=== PATIENT | male | born 1975 | race Caucasian/White ===

== ENCOUNTER 2024-01-01 13:52 | Inpatient (IN) | payer OTHER ==
[~2024-01-01] VITALS: Ht 182.9 cm; Wt 116.0 kg
[~2024-01-01 13:52] MED LIST: ALBU108A5 IN; ALPR0.254 PO; AMOX500C2 PO; AZIT-185 PO; BUSP10TA90 PO; CHOL500033 PO; DOCU-94 PO; EMPA1TAB3 PO; HYDR-4798 PO; IBUP-1456 PO; PARO-181 PO; SEMA4INJ SC
--- NOTE | 2024-01-01 14:20 | ED.PDOC ---
History of Present Illness HPI Comments 48-year-old male presents to the ER with spouse and with prior history of COPD, COVID-became O2 dependent for home on 2L after COVID which may be associated to the chief complaint of shortness of breath. Patient has had a cough for the past 3 days, and spouse saturation level being 70% today. Patient was given amoxicillin and a Z-Veto. Patient ran out of his 2 L of O2 at home. PMHx HTN, dm. Denies chills, fever, N/V/D, wheezing, CP or other associated symptoms, modifiers, or recent injuries at this time. Time Seen by MD: 14:05 Primary Care Provider: jhon Reviewed Notes: Nurses Notes, Medications, Allergies Allergies: Coded Allergies: NO KNOWN ALLERGIES (Unverified , 04/03/15) Information Source: Patient, Spouse Mode of Arrival: Ambulatory Severity: Moderate Timing: Days Duration: Since onset, Days Prehospital treatment: None Past Medical History PAST MEDICAL HISTORY: COPD, DM, HTN Past Medical History (Other): Covid, 2 L of O2 at home Surgical History: Denies all surgeries Family History Family History: Reviewed,noncontributory to illness Social History Smoker: Non-Smoker Alcohol: Denies ETOH Use Drugs: Denies Drug Use Lives In: Home Constitutional: denies: chills, diaphoresis, fatigue, fever, malaise, sweats, weakness, others EENTM: denies: blurred vision, double vision, ear bleeding, ear discharge, ear drainage, ear pain, ear ringing, eye pain, eye redness, hearing loss, mouth pain, mouth swelling, nasal discharge, nose bleeding, nose congestion, nose pain, photophobia, tearing, throat pain, throat swelling, voice changes, others Respiratory: reports: SOB at rest, shortness of breath; denies: cough, hemoptysis, orthopnea, SOB with excertion, stridor, wheezing, others Cardiovascular: denies: chest pain, dizzy spells, diaphoresis, Dyspnea on exertion, edema, irregular heart beat, left arm pain, lightheadedness, palpitations, PND, syncope, others Gastrointestinal: denies: abdomen distended, abdominal pain, blood streaked bowels, constipated, diarrhea, dysphagia, difficulty swallowing, hematemesis, melena, nausea, poor appetite, poor fluid intake, rectal bleeding, rectal pain, vomiting, others Genitourinary: denies: burning, dysuria, flank pain, frequency, hematuria, incontinence, penile discharge, penile sore, pain, testicle pain, testicle swelling, urgency, others Neurological: denies: dizziness, fainting, headache, left sided numbness, left sided weakness, numbness, paresthesia, pre-existing deficit, right sided numbness, right sided weakness, seizure, speech problems, tingling, tremors, weakness, others Musculoskeletal: denies: back pain, gout, joint pain, joint swelling, muscle pain, muscle stiffness, neck pain, others Integumetry: denies: bruises, change in color, change in hair/nails, dryness, laceration, lesions, lumps, rash, wounds, others Allergic/Immunocompromised: denies: Difficulty Healing, Frequent Infections, Hives, Itching, others Hematologic/Lymphatic: denies: anemia, blood clots, easy bleeding, easy bruising, swollen glands, others Endocrine: denies: excessive hunger, excessive sweating, excessive thirst, excessive urination, flushing, intolerance to cold, intolerance to heat, unexplained weight gain, unexplained weight loss, others Psychiatric: denies: anxiety, bipolar disorder, depression, hopeless, panic disorder, schizophrenia, sleepless, suicidal, others All Other Systems: Reviewed and Negative Physical Exam Exam Comments Normal General Appearance: No Apparent Distress, Normal HEENT: Normal ENT Inspection, Pharynx Normal, TMs Normal Neck: Full Range of Motion, Non-Tender, Normal, Normal Inspection Respiratory: Chest Non-Tender, Lungs Clear, No Accessory Muscle Use, No Respiratory Distress, Normal Breath Sounds Cardiovascular: No Edema, No JVD, No Murmur, No Gallop, Normal Peripheral Pulses, Regular Rate/Rhythm Breast Exam: Deferred Gastrointestinal: No Organomegaly, Non Tender, No Pulsatile Mass, Normal Bowel Sounds, Soft Genitalia: Deferred Pelvic: Deferred Rectal: Deferred Extremities: No calf tenderness, Normal capillary refill, Normal inspection, Normal range of motion, Non-tender, No pedal edema Musculoskeletal : Apperance: Normal Neurologic: Alert, embedded linux developer II-XII nml as Tested, No Motor Deficits, Normal Affect, Normal Mood, No Sensory Deficits Cerebellar Function: Normal Reflexes: Normal Skin: Dry, Normal Color, Warm Lymphatic: No Adenopathy Was a procedure done? Was a procedure done?: No Differential Dx Considerations may include: chf, copd exacerbation, pneumonia, covid, influenza, PE X-Ray, Labs, Meds, VS Vital Signs Date Time Temp Pulse Resp B/P (MAP) Pulse Ox O2 Delivery O2 Flow Rate FiO2 01/01/24 14:45 97 Non-Rebreather 15 N/A 01/01/24 14:40 90 Non-Rebreather 15 N/A 01/01/24 14:38 98 13 111/62 (78) 96 01/01/24 14:29 97.7 20 118/83 (95) 79 Lab Test 01/01/24 15:38 01/01/24 14:36 01/01/24 14:34 Range/Units Troponin I High Sensitivity Pending < 3 L </=54 ng/L White Blood Count 18.6 H 4.4-10.8 10^3/uL Red Blood Count 4.74 4.5-5.90 10^6/uL Hemoglobin 15.4 13.5-17.5 g/dL Hematocrit 45.7 41.0-53.0 % Mean Corpuscular Volume 96.3 80.0-100.0 fL Mean Corpuscular Hemoglobin 32.6 H 28.0-32.0 pg Mean Corpuscular Hemoglobin Concent 33.8 32.0-36.0 g/dL Red Cell Distribution Width 13.6 11.8-14.3 % Platelet Count 200 140-450 10^3/uL Mean Platelet Volume 7.1 6.9-10.8 fL Neutrophils (%) (Auto) 91.7 H 37.0-80.0 % Lymphocytes (%) (Auto) 5.1 L 10.0-50.0 % Monocytes (%) (Auto) 2.9 0.0-12.0 % Eosinophils (%) (Auto) 0.0 0.0-7.0 % Basophils (%) (Auto) 0.3 0.0-2.0 % Neutrophils # (Auto) 17.1 H 1.6-8.6 10 ^3/uL Lymphocytes # (Auto) 0.9 0.4-5.4 10 ^3/uL Monocytes # (Auto) 0.5 0-1.3 10 ^3/uL Eosinophils # (Auto) 0 0-0.8 10 ^3/uL Basophils # (Auto) 0.1 0-0.2 10 ^3/uL Nucleated Red Blood Cells 0.0 % Sodium Level 138 136-145 mmol/L Potassium Level 4.2 3.5-5.1 mmol/L Chloride Level 104 98-107 mmol/L Carbon Dioxide Level 27 20-31 mmol/L Anion Gap 7 5-15 Blood Urea Nitrogen 19 9-23 mg/dL Creatinine 1.18 0.700-1.30 mg/dL Glomerular Filtration Rate Calc 77 >90 mL/min BUN/Creatinine Ratio 16.1 10.0-20.0 Serum Glucose 119 H 74-106 mg/dL Calcium Level 9.5 8.7-10.4 mg/dL Blood Gas Specimen Type Arterial Blood Gas Sample Site Right radial Blood Gas Patient Temperature 37.0 Arterial Blood Date Drawn [id number] Arterial Blood pH 7.266 L 7.350-7.450 Arterial Blood Partial Pressure CO2 52.9 H 35.0-48.0 mmHg Arterial Blood Partial Pressure O2 81.1 L 83.0-108.0 mmHg Arterial Blood HCO3 23.5 21.0-28.0 mmol/L Arterial Blood Oxygen Saturation 94.7 94.0-98.0 % Arterial Blood Base Excess -4.2 L -2.0-3.0 mmol/L Arterial Blood Oxyhemoglobin 93.1 L 94.0-98.0 % Arterial Blood Carboxyhemoglobin 1.1 0.5-1.5 % Arterial Blood Methemoglobin 0.6 0.0-1.5 % Bhaskar Test Yes Blood Gas Total Hemoglobin 16.20 13.5-17.5 g/dL Blood Gas Liter Flow 15.00 Blood Gas Modality Mask - nrb FiO2 % 100.0 Time of 1ST Reevaluation: 14:35 Reevaluation 1ST: Unchanged Time of 2ND Reevaluation: 16:03 Reevaluation 2ND: Improved Patient Education/Counseling: Diagnosis, Treatment, Prognosis Family Education/Counseling: Diagnosis, Treatment, Prognosis Additional Information External Notes-10/24/18 Ordered Test-EKG, lab, RT,XY Reviewed Results-cxr, cbc, trop, chem Independent Hx- Interpreted Results-cxr Discuss Tx/Results-medical personnel, consults Departure 1 Departure Time of Disposition: 16:04 Impression: Primary Impression: CHF (congestive heart failure) Qualified Codes: I50.23 - Acute on chronic systolic (congestive) heart failure Additional Impressions: Hypoxia Respiratory failure Qualified Codes: J96.21 - Acute and chronic respiratory failure with hypoxia; J96.22 - Acute and chronic respiratory failure with hypercapnia Disposition: ADMITTED INPATIENT Admit to: Tele Condition: Serious Discharged With: Spouse Critical Care Note Critical Care Time?: Yes (55 min-critical care time only) Critical care comment: due to the real possibility of patient's condition deteriorating, his care requires my highest attention and readiness to intervene. i assessed the patient , ordered the proper tests and treatments, reassessed him for response, formulated a plan, discussed it with medical personnel, and consultants,. total time include more than 50% face to face contact and does not include any procedures Stability Stability form required: No I personally scribed for FELIX HERNANDEZ MD ([email or web address]) on 01/01/24 at 14:20. Electronically submitted by Ramana Greenberg ([email or web address]). EFLIX HERNANDEZ MD Jan 01, 2024 14:20
--- NOTE | 2024-01-01 14:29 | DVH ---
XY CHEST PORTABLE, HISTORY: sob COMPARISON: None None TECHNICAL DATA: 1 view of the chest was obtained. FINDINGS: Lines and tubes: None Cardiomediastinal silhouette: enlarged Pulmonary vasculature: prominent Lung expansion: low Lung airspace: bilateral patchy airspace opacities Lung interstitium: increased Pleura: normal Pneumothorax: no Bones: Unremarkable Other: no IMPRESSION: Cardiomegaly with pulmonary vascular congestion and possible pulmonary edema.
[2024-01-01 14:45] VITALS: O2SAT 97
[2024-01-01 14:52] LABS: Basophils # (auto) 0.1 10 ^3/uL (0-0.2); Basophils % (auto) 0.3 % (0.0-2.0); Eosinophils # (auto) 0 10 ^3/uL (0-0.8); Hematocrit 45.7 % (41.0-53.0); Hemoglobin 15.4 g/dL (13.5-17.5); Lymphocytes # (auto) 0.9 10 ^3/uL (0.4-5.4); Lymphocytes % (auto) 5.1 % (10.0-50.0); Mean Corpuscular Hemoglobin 32.6 pg (28.0-32.0); Mean Corpuscular Hgb Conc. 33.8 g/dL (32.0-36.0); Mean Corpuscular Volume 96.3 fL (80.0-100.0); Monocytes # (auto) 0.5 10 ^3/uL (0-1.3); Monocytes % (auto) 2.9 % (0.0-12.0); Neutrophils # (auto) 17.1 10 ^3/uL (1.6-8.6); Neutrophils % (auto) 91.7 % (37.0-80.0); Platelet Count (auto) 200 10^3/uL (140-450); Red Blood Cells 4.74 10^6/uL (4.5-5.90); Red Cell Distribution Width 13.6 % (11.8-14.3); White Blood Cell 18.6 10^3/uL (4.4-10.8)
[2024-01-01 15:00] LABS: Chloride 104 mmol/L (98-107); Potassium 4.2 mmol/L (3.5-5.1); Sodium 138 mmol/L (136-145)
[2024-01-01 15:01] LABS: Anion Gap 7 (5-15); Calcium 9.5 mg/dL (8.7-10.4); Carbon Dioxide 27 mmol/L (20-31)
[2024-01-01 15:06] LABS: BUN/Creatinine Ratio 16.1 (10.0-20.0); Blood Urea Nitrogen 19 mg/dL (9-23); Glucose 119 mg/dL (74-106)
[2024-01-01 15:12] LABS: Base Excess -4.2 mmol/L (-2.0-3.0)
[2024-01-01] MEDS: FUROSEMIDE 40 MG/4 ML VIAL IV ONE ×2 (16:14→20:56)
[2024-01-01 17:49] LABS: COVID19 ANTIGEN SOFIA FIA NEGATIVE (NEGATIVE); Rapid Influenza A Negative (Negative); Rapid Influenza B Negative (Negative)
[2024-01-01 19:30] VITALS: O2SAT 91
[2024-01-01] MEDS ORDERED: ACETAMINOPHEN 325 MG TAB PO PRN (21:00)
[2024-01-01] MEDS ORDERED: DOCUSATE SOD 100 MG CAP PO PRN (21:00)
[2024-01-01] MEDS ORDERED: NITROGLYCERIN 0.4 MG SL TAB SL PRN (21:00)
[2024-01-01] MEDS ORDERED: MORPHINE SULFATE INJ 2 MG/ml SYRG IV PRN (21:00)
[2024-01-01] MEDS ORDERED: ONDANSETRON HCL 4 MG/2 ML VIAL IV PRN (21:00)
[2024-01-01 21:05] VITALS: BP 131/74; PULSE 104; O2SAT 95
--- NOTE | 2024-01-01 21:39 | DVHHPRES ---
History of Present Illness Resident Creating Document: SANG CHE RESIDENT History of Present Illness Mr. 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 His SPO2 70% as he ran out of his home oxygen supply which progressed to SOB at rest, shortness of breath. He denies chills, fever, nausea, vomiting, diarrhea, wheezing, chest pain, dizziness, prolonged immobilization, leg swelling, bleeding/thrombotic disorder or recent injuries. He was prescribed outpatient moses with amoxicillin and a Z-Veto without improvement. At presentation was mildly confused likely due to metabolic encephalopathy. His hypercapnic, hypoxic respiratory failure with pulmonary edema with possible infection needed telemetry level admission, IV diuresis, antibiotics and BIPAP showing respiratory improvement. Cardiovascular: CHF, hyperipidemia, pulmonary hypertension Pulmonary: COPD Psych: Anxiety Musculoskeletal: Chronic low back pain, Osteoarthritis Endocrine: Diabetes Past Surgical History: None Family History: None Family History Noncontributory Smoke: No ALCOHOL: none Drugs: None Lives: Roommate Domestic Violence: Neg Past Social History Patient admits to recent history of distant use of fentanyl. Denies any history of IV drug abuse. Even on recurrent asking patient denies any lifetime history of cigarette smoking/vaping. Review of Systems Constitutional: Yes: Malaise Eyes: No: Pain, Vision change, Conjunctivae inflammation, Eyelid inflammation, Other, Redness ENT: No: Ear pain, Ear discharge, Nose pain, Nose discharge, Nose congestion, Mouth pain, Mouth swelling, Throat pain, Throat swelling, Other Respiratory: Cough, Shortness of breath, SOB with excertion, Hemoptysis, Sputum , Other (Brown) Cardiovascular: No: Chest Pain, Palpitations, Orthopnea, Paroxysmal Noc. Dyspnea, Edema, Lt Headedness, Other Gastrointestinal: No: Nausea, Vomiting, Abdominal Pain, Diarrhea, Constipation, Melena, Hematochezia, Other Genitourinary: No Dysuria, No Frequency, No Incontinence, No Hematuria, No Retention, No Other Musculoskeletal: No: other, neck pain, shoulder pain, arm pain, back pain, hand pain, leg pain, foot pain Skin: No: Rash, Lesions, Jaundice, Bruising, Other Neurological: No: Weakness, Numbness, Incoordination, Change in speech, Confusion, Seizures, Other Allergies: Coded Allergies: NO KNOWN ALLERGIES (Unverified , 04/03/15) Medications Current Medications Medications Dose Ordered Sig/Joseph Route Start Time Stop Time Status Last Admin Dose Admin Ondansetron HCl 4 mg Q4HP PRN IV 01/01/24 21:00 Docusate Sodium 100 mg BIDPRN PRN PO 01/01/24 21:00 Acetaminophen 650 mg Q6HP PRN PO 01/01/24 21:00 Nitroglycerin 0.4 mg Q5MINP PRN SL 01/01/24 21:00 Morphine Sulfate 2 mg Q30M PRN IV 01/01/24 21:00 Exam Vital Signs Vital Signs Date Time Temp Pulse Resp B/P (MAP) Pulse Ox O2 Delivery O2 Flow Rate FiO2 01/01/24 21:00 97.8 90 12 131/74 (93) 96 97.8 01/01/24 19:30 Hi-Flow Heated NC+ 10 91 91 General Appearance: Alert, Oriented X3, Cooperative, moderate distress, Other (Patient on BiPAP) HEENT: Atraumatic, PERRLA, EOMI, Other (Dry mucous membrane) Respiratory: Other (Slow air movement, patient on BiPAP, bilateral basal crackles, left-sided crackles more prominent. Egophony on left lower side. ) Cardiovascular: Regular rate, Normal S1, Normal S2, No murmurs, Other (Regular sinus rhythm, mildly tachycardic in 100s.) Abdominal: Normal bowel sounds, Soft, No tenderness, No hepatospenomegaly, Other (Central obesity noted) Extremities: No clubbing, No cyanosis, No edema, Normal pulses, No tenderness/swelling, Other (No pitting edema noted.) Skin: No rashes Neuro: Strength at 5/5 X4 ext, Normal tone, Sensation intact, Cranial nerves 3- 12 NL, Other (Deferred gait and speech as patient is on BiPAP) Psych/Mental Status: Mental status NL, Mood NL, Other (Mildly anxious, uncomfortable on BiPAP understandably.) Labs/Xrays Labs Test 01/01/24 20:21 01/01/24 17:09 01/01/24 15:38 01/01/24 14:36 Range/Units POC Glucose 170 H 70-106 mg/dl Influenza Type A Antigen Negative Negative Influenza Type B Antigen Negative Negative SARS-CoV-2 Antigen (Rapid) Negative NEGATIVE Troponin I High Sensitivity < 3 L </=54 ng/L White Blood Count 18.6 H 4.4-10.8 10^3/uL Red Blood Count 4.74 4.5-5.90 10^6/uL Hemoglobin 15.4 13.5-17.5 g/dL Hematocrit 45.7 41.0-53.0 % Mean Corpuscular Volume 96.3 80.0-100.0 fL Mean Corpuscular Hemoglobin 32.6 H 28.0-32.0 pg Mean Corpuscular Hemoglobin Concent 33.8 32.0-36.0 g/dL Red Cell Distribution Width 13.6 11.8-14.3 % Platelet Count 200 140-450 10^3/uL Mean Platelet Volume 7.1 6.9-10.8 fL Neutrophils (%) (Auto) 91.7 H 37.0-80.0 % Lymphocytes (%) (Auto) 5.1 L 10.0-50.0 % Monocytes (%) (Auto) 2.9 0.0-12.0 % Eosinophils (%) (Auto) 0.0 0.0-7.0 % Basophils (%) (Auto) 0.3 0.0-2.0 % Neutrophils # (Auto) 17.1 H 1.6-8.6 10 ^3/uL Lymphocytes # (Auto) 0.9 0.4-5.4 10 ^3/uL Monocytes # (Auto) 0.5 0-1.3 10 ^3/uL Eosinophils # (Auto) 0 0-0.8 10 ^3/uL Basophils # (Auto) 0.1 0-0.2 10 ^3/uL Nucleated Red Blood Cells 0.0 % Sodium Level 138 136-145 mmol/L Potassium Level 4.2 3.5-5.1 mmol/L Chloride Level 104 98-107 mmol/L Carbon Dioxide Level 27 20-31 mmol/L Anion Gap 7 5-15 Blood Urea Nitrogen 19 9-23 mg/dL Creatinine 1.18 0.700-1.30 mg/dL Glomerular Filtration Rate Calc 77 >90 mL/min BUN/Creatinine Ratio 16.1 10.0-20.0 Serum Glucose 119 H 74-106 mg/dL Calcium Level 9.5 8.7-10.4 mg/dL Test 01/01/24 14:34 Range/Units Blood Gas Specimen Type Arterial Blood Gas Sample Site Right radial Blood Gas Patient Temperature 37.0 Arterial Blood Date Drawn [id number] Arterial Blood pH 7.266 L 7.350-7.450 Arterial Blood Partial Pressure CO2 52.9 H 35.0-48.0 mmHg Arterial Blood Partial Pressure O2 81.1 L 83.0-108.0 mmHg Arterial Blood HCO3 23.5 21.0-28.0 mmol/L Arterial Blood Oxygen Saturation 94.7 94.0-98.0 % Arterial Blood Base Excess -4.2 L -2.0-3.0 mmol/L Arterial Blood Oxyhemoglobin 93.1 L 94.0-98.0 % Arterial Blood Carboxyhemoglobin 1.1 0.5-1.5 % Arterial Blood Methemoglobin 0.6 0.0-1.5 % Bhaskar Test Yes Blood Gas Total Hemoglobin 16.20 13.5-17.5 g/dL Blood Gas Liter Flow 15.00 Blood Gas Modality Mask - nrb FiO2 % 100.0 [place] [address] Ph: [phone] DIAGNOSTIC IMAGING Diagnostic Imaging Report : [id number] Signed PATIENT: CHELLE WOOD ACCT: [id number] UNIT: [id number] : 1975 LOC: ER ROOM / BED: / AGE / SEX: 48 / M ADM STATUS: REG ER SERVICE 1400 ORDERING PHYSICIAN: FELIX HERNANDEZ MD PROCEDURE(s): CXRP - CHEST PORTABLE REASON: sob ORDER NUMBER(s): [id number], ACCESSION NUMBER(s): [id number] XY CHEST PORTABLE, HISTORY: sob COMPARISON: None None TECHNICAL DATA: 1 view of the chest was obtained. FINDINGS: Lines and tubes: None Cardiomediastinal silhouette: enlarged Pulmonary vasculature: prominent Lung expansion: low Lung airspace: bilateral patchy airspace opacities Lung interstitium: increased Pleura: normal Pneumothorax: no Bones: Unremarkable Other: no IMPRESSION: Cardiomegaly with pulmonary vascular congestion and possible pulmonary edema. ATED BY: JOSH ZHANG MD DICTATED DATE/TIME: 01/01/241426 SIGNED BY: JOSH ZHANG MD SIGNED DATE/TIME: 01/01/241426 CC: [address] [address] Ph: [phone] DIAGNOSTIC IMAGING Diagnostic Imaging Report : [id number] Signed PATIENT: CHELLE WOOD ACCT: [id number] UNIT: [id number] : 1975 LOC: TELE ROOM / BED: [address] [place] [address] AGE / SEX: 49 / M ADM STATUS: ADM IN SERVICE 1200 ORDERING PHYSICIAN: SANG CHE PROCEDURE(s): BLDVT - BiLat Lower DVT REASON: respiratory failure ORDER NUMBER(s): [id number], ACCESSION NUMBER(s): [id number] Bilateral lower extremity venous duplex Clinical History: respiratory failure Comparison: None Technique: Duplex Doppler evaluation of the deep venous systems of both lower extremities f rom the common femoral veins to the popliteal veins including color Doppler and spectral/pulsed waveform analysis was performed. Findings: RIGHT SIDE: The common femoral vein demonstrates appropriate compressibility and waveform variability. There is compressibility/patency of the great saphenous vein at the proximal thigh. The femoral vein demonstrates appropriate compressibility and waveform variability. The deep femoral vein demonstrates appropriate compressibility and waveform variability. The popliteal vein demonstrates appropriate compressibility and waveform variability. There is normal compressibility at the tibioperoneal trunk. LEFT SIDE: The common femoral vein demonstrates appropriate compressibility and waveform variability. There is compressibility/patency of the great saphenous vein at the proximal thigh. The femoral vein demonstrates appropriate compressibility and waveform variability. The deep femoral vein demonstrates appropriate compressibility and waveform variability. The popliteal vein demonstrates appropriate compressibility and waveform variability. There is normal compressibility at the tibioperoneal trunk. Impression: 1. No right or left femoropopliteal venous thrombosis. HS:Y ATED BY: MILY HENDRICKSON MD DICTATED DATE/TIME: 01/02/24414 SIGNED BY: MLIY HENDRICKSON MD SIGNED DATE/TIME: 01/02/24414 CC: [address] [place] - [address] Ph: [phone] DIAGNOSTIC IMAGING Diagnostic Imaging Report : [id number] Signed PATIENT: CHELLE WOOD ACCT: [id number] UNIT: [id number] : 1975 LOC: TELE ROOM / BED: 1016-ERT / A AGE / SEX: 48 / M ADM STATUS: ADM IN SERVICE 56 ORDERING PHYSICIAN: SANG CHE PROCEDURE(s): CTACH - CT ANGIO CHEST CONTRAST REASON: D dimer elevated. ORDER NUMBER(s): [id number], ACCESSION NUMBER(s): [id number] Procedure: CT CT ANGIO CHEST CONTRAST Reason for study/Clinical History: D dimer elevated. Comparison Study: Chest x-ray 12/01/2023 Exam Date: 01/01/2024 11:56 PM Radiation Dose Information: CT Dose: CTDI volume is 27.5 mGy. Dose-length product is 1060.39 mGy*cm Contrast: 100 cc of Omnipaque 350 TECHNIQUE: After the uneventful administration of intravenous contrast intravenously, CTA imaging was performed through the chest per PE protocol. Coronal, sagittal, and 3D MIP images were created at a separate workstation and reviewed. All CT scans at this medical facility are performed using dose modulation techniques as appropriate to a performed exam including the following: Automated exposure control was utilized; adjustment of the MA and/or KV according to patient size; and use of iterative reconstruction technique. FINDINGS: The main pulmonary artery is mildly prominent measuring 3.2 cm. No central pulmonary embolus. No evidence of segmental pulmonary embolism. Subsegmental branches are limited by contrast opacification. Marked alveolar airspace opacities in the left upper and left lower lobes with similar appearance in the right perihilar lung. There is supraclavicular and mediastinal adenopathy with largest lymph nodes measuring 1.6 cm in the anterior mediastinum, 1.7 cm in the AP window and 1.6 cm in the left hilum. No discrete pericardial or pleural effusion. The thoracic aorta appears normal in caliber and contour. Visualized portions of the upper abdomen demonstrate severe diffuse hepatic steatosis. No suspicious osseous lesion. IMPRESSION: 1. No evidence of pulmonary embolism. 2. Marked predominantly ground-glass airspace opacities in the left lung diffusely and right perihilar lung likely represents infectious process. 3. Supraclavicular, mediastinal, and left hilar adenopathy, likely reactive. 4. Diffuse severe hepatic steatosis. 5. Short-term follow-up is recommended. HS:Y ATED BY: MILY HENDRICKSON MD DICTATED DATE/TIME: 01/02/24425 SIGNED BY: MILY HENDRICKSON MD SIGNED DATE/TIME: 01/02/24425 CC: Assessment/Plan Assessment/Plan Assessment: Mr. Wood, a 48-year-old male with a history of COPD, hypertension, obesity, JAMES, diabetes, and chronic oxygen dependence (2L) [id number], presents to the ER with shortness of breath and a cough for three days, with an SPO2 of 70% after running out of home oxygen. Plan: #1 Acute on chronic hypoxic, combined hypercapnic respiratory failure: Noted non-anion gap respiratory acidosis with rising CO2 needing BiPAP, tolerating well. Repeat blood gas in the a.m.. Appreciate RT input. #2 COPD exacerbation, acute bronchitis: presented with patchy hemoptysis and Thick brown sputum production for last 4-5 days.Likely a case of COPD exacerbation with hypercapnia, CO2 retention complicated with hypoxia secondary to lack of chronic home oxygen. Continue IV antibiotics, IV steroid> changed to oral prednisone 40 mg daily x 1 of 5 days. Pulmonary toilet. #3 Possible sepsis due to community-acquired gram positive/ gram-ve pneumonia: Outpatient use of oral amoxicillin and Z-Veto yielded no improvement. Left lower lobe opacity, egophony, elevated WBC 18.6, reactive apical lymph node, heart rate more than 90, respiratory rate more than 20, worsening respiratory failure with negative lactate highlights sepsis. IV ceftriaxone + azithromycin to continue day 1 of 7days. Please follow sputum culture and blood culture. Has a history of prior incarceration and travel to TB endemic areas. Presumably likely unrelated but needs further outpatient evaluation. #4 Questionable CHF exacerbation: patient denies any known history of heart failure, PND, orthopnea, leg swelling, weight gain, elevated JVD absent. Statu s post IV Lasix diuresing well. Low probability of CHF exacerbation but please check TTE/echo with the emphasis on possible pulmonary hypertension and EF%. #5 Diabetes type 2, insulin dependent: Patient is on Basal bolus SSI, free style lancets along with Jardiance 25 mg tab daily. HbA1c pending. Target blood glucose 140-180 mg per dL Postprandial-hospital. NPO SSI to continue. When tolerated enteral cc diet> corresponding change to SSI regimen. #6 History of COPD: Follows Dr. Conde, on Symbicort, albuterol at home with chronic 2 L of nasal cannula oxygen. #7 Likely Metabolic Encephalopathy, improved: Likely multifactorial with acid- base disorder, infection, sepsis/SIRS and multisystem involvement. At presentation presented with mild confusion, improved with BIPAP, reviewed this AM AAOx4. #8 vitamin-D deficiency: Daily 5000 vitamin D3, continue. #9 Anxiety and panic disorder: 0.25 alprazolam as needed , paroxetine 40 mg tablet daily, buspirone 10 mg tab daily, hydroxyzine / Atarax 25 mg daily. #10 intermittent constipation: As needed docusate twice daily. #11 ? methadone: As per patient he is on methadone but prescription check reveals patient on [address] [place] for back pain along with ibuprofen 800 mg tab t.i.d., with muscle relaxant carisoprodol 359 mg tab TID. Not prescribed opioid as patient denies any intermediate pain. Medications need further clarification with family. #12: Dyslipidemia: Patient on fenofibrate 134 mg cap daily, check lipid panel. The patient is not sure why he is not on statin therapy. #13: Known JAMES, follows pulmonology: At home has CPAP/ BiPAP intermittent use. Counseled regarding regular use. #14: Ruled out PE/DVT: Although low probability , patient came with tachycardia, shortness of breath, comparatively soft blood pressure of 90/70s history of COVID, borderline elevated D-dimer 1.19. #15 Hepatic steatosis: Noted in imaging. likely underlying fatty liver disease, counseling to lose weight, lifestyle modification with risk of MEZA/MASH discussed. #16 Grade 2 obesity: BMI of 36.0, presumably patient is on 0.5 mg subcutaneous Ozempic weekly and lifestyle modification. Diet: Patient needing BiPAP support. overnight NPO to avoid aspiration pneumonia. PUD prophylaxis: protonix 40mg iv daily> change to oral when tolerated. DVT prophylaxis: Lovenox 40mg daily. Barriers to discharge: Medical diagnosis and management in progress. Patient lives with roommate. Independent for ADL. Needs 2 L NC round the clock with CPAP/BIPAP at bedtime. SW consulted for early discharge planning with previously qualified home 2 L NC oxygen [id number]/as needed ABG/olsen. PCP: Mirtha Joyce MD [employer]: Carloz Barreto MD Case discussed with Dr. Longo. Code Status: Full Code. Care discussion needed total 27 minutes bedside. Plan discussed with: Patient, Other (Primary team, RN.) My Orders Orders - SANG CHE RESIDENT Procedure Category Date Status Time Admit ADMIT 01/01/24 Transmitted 21:00 Code Status CODE 01/01/24 Transmitted 21:00 Oxygen Per Hour RT 01/01/24 Transmitted 21:00 Ondansetron Hcl PHA 01/01/24 In Process (Zofran) 21:00 Docusate Sodium PHA 01/01/24 In Process Capsule (Colace 21:00 Complete Blood Count LAB 01/02/24 Verified 04:00 Comprehensive LAB 01/02/24 Verified Metabolic Panel 04:00 Cardiac DIET 01/02/24 Transmitted Diet-2gna,Lofat,Lochol Breakfast Acetaminophen Tablet PHA 01/01/24 In Process (Tylenol Tablet) 21:00 Sequential [place] 01/01/24 In Process Compression Device Nitroglycerin PHA 01/01/24 In Process Sublingual (Ntrostat 21:00 Morphine Sulfate PHA 01/01/24 In Process Injection 21:00 Oxygen By Nasal RT 01/01/24 Transmitted Cannula 21:00 Stat Ekg For Chest [place] 01/01/24 In Process Pain 21:00 Notify Of Changes [place] 01/01/24 In Process From Base 21:00 Modeling Analyst For [place] 01/01/24 In Process 24 Hours 21:00 Emergency Dysrhythmia [place] 01/01/24 In Process Protocol 21:00 Rhythm Strips Once [place] 01/01/24 In Process Every Shift 21:00 Urinalysis LAB 01/01/24 Logged 21:07 Drug Screen LAB 01/01/24 Logged 21:07 Blood Alcohol LAB 01/01/24 Logged 21:07 Respiratory Culture LIZBETH 01/01/24 Logged W/ Gs 21:07 D-Dimer LAB 01/01/24 Logged 21:10 Lactic Acid W/ Reflex LAB 01/01/24 Logged Order 21:10 B-Type Natriuretic LAB 01/01/24 Logged Peptide 21:10 Daily Weight [place] 01/01/24 In Process 21:10 Intake And Output [place] 01/01/24 In Process 21:10 Lipid Panel LAB 01/02/24 Verified 04:00 Date of Service: Jan 01, 2024 Billing Provider: DES LONGO MD Common Visit Codes: 07343-[id number] INP/OBS CARE (HIGH) Secondary Visit Codes: [id number] CARE PLAN 30 MINUTES SANG CHE RESIDENT Jan 01, 2024 21:39 DES LONGO MD Jan 02, 2024 17:55
[2024-01-01 22:09] LABS: Base Excess 1.5 mmol/L (-2.0-3.0)
[2024-01-01 22:42] VITALS: BP 131/74; PULSE 104; RESP 21; O2SAT 95
[2024-01-01] MEDS: cefTRIAXone 1GM/50ML D5W 50 ML IV ONE (23:09)
[2024-01-01] MEDS: AZITHROMYCIN 500MG/ 250ML 250 ML IV ONE (23:21)
[2024-01-01] MEDS: IOHEXOL 350 MG/ML 100ML IJ ONE (23:57)
[2024-01-02] VITALS (17 sets, daily range): BP systolic 116–140; BP diastolic 59–89; PULSE 84–109; RESP 13–22; O2SAT 88–96
[2024-01-02] MEDS: AZITHROMYCIN 500MG/ 250ML 250 ML IV SCH (00:15)
[2024-01-02] MEDS: PANTOPRAZOLE 40 MG/10 ML VIAL INJ IV ONE (03:45)
[2024-01-02] MEDS: ENOXAPARIN SOD 40 MG/0.4 ML SYRINGE SC SCH (03:55)
--- NOTE | 2024-01-02 04:15 | DVH ---
Bilateral lower extremity venous duplex Clinical History: respiratory failure Comparison: None Technique: Duplex Doppler evaluation of the deep venous systems of both lower extremities from the common femora l veins to the popliteal veins including color Doppler and spectral/pulsed waveform analysis was perf ormed. Findings: RIGHT SIDE: The common femoral vein demonstrates appropriate compressibility and waveform variability. There is compressibility/patency of the great saphenous vein at the proximal thigh. The femoral vein demonstrates appropriate compressibility and waveform variability. The deep femoral vein demonstrates appropriate compressibility and waveform variability. The popliteal vein demonstrates appropriate compressibility and waveform variability. There is normal compressibility at the tibioperoneal trunk. LEFT SIDE: The common femoral vein demonstrates appropriate compressibility and waveform variability. There is compressibility/patency of the great saphenous vein at the proximal thigh. The femoral vein demonstrates appropriate compressibility and waveform variability. The deep femoral vein demonstrates appropriate compressibility and waveform variability. The popliteal vein demonstrates appropriate compressibility and waveform variability. There is normal compressibility at the tibioperoneal trunk. Impression: 1. No right or left femoropopliteal venous thrombosis. HS:Y
--- NOTE | 2024-01-02 04:27 | DVH ---
Procedure: CT CT ANGIO CHEST CONTRAST Reason for study/Clinical History: D dimer elevated. Comparison Study: Chest x-ray 12/01/2023 Exam Date: 01/01/2024 11:56 PM Radiation Dose Information: CT Dose: CTDI volume is 27.5 mGy. Dose-length product is 1060.39 mGy*cm Contrast: 100 cc of Omnipaque 350 TECHNIQUE: After the uneventful administration of intravenous contrast intravenously, CTA imaging was performed through the chest per PE protocol. Coronal, sagittal, and 3D MIP images were created at a separate workstation and reviewed. All CT scans at this medical facility are performed using dose mo dulation techniques as appropriate to a performed exam including the following: Automated exposure co ntrol was utilized; adjustment of the MA and/or KV according to patient size; and use of iterative re construction technique. FINDINGS: The main pulmonary artery is mildly prominent measuring 3.2 cm. No central pulmonary embolus. No evid ence of segmental pulmonary embolism. Subsegmental branches are limited by contrast opacification. Marked alveolar airspace opacities in the left upper and left lower lobes with similar appearance in the right perihilar lung. There is supraclavicular and mediastinal adenopathy with largest lymph node s measuring 1.6 cm in the anterior mediastinum, 1.7 cm in the AP window and 1.6 cm in the left hilum. No discrete pericardial or pleural effusion. The thoracic aorta appears normal in caliber and contou r. Visualized portions of the upper abdomen demonstrate severe diffuse hepatic steatosis. No suspicious osseous lesion. IMPRESSION: 1. No evidence of pulmonary embolism. 2. Marked predominantly ground-glass airspace opacities in the left lung diffusely and right perihila r lung likely represents infectious process. 3. Supraclavicular, mediastinal, and left hilar adenopathy, likely reactive. 4. Diffuse severe hepatic steatosis. 5. Short-term follow-up is recommended. HS:Y
[2024-01-02] MEDS: methylPREDNISolone SOD SUCC 40 MG/ML VL IV ONE (04:30)
[2024-01-02] MEDS ORDERED: DEXTROSE (50%) 50ML SYRG IV PRN (05:00)
[2024-01-02] MEDS ORDERED: ALPRAZolam 0.25 MG TAB PO PRN (05:00)
[2024-01-02] MEDS ORDERED: FENO134C19 PO (05:08)
[2024-01-02] MEDS ORDERED: CARI-579 PO (05:08)
[2024-01-02] MEDS ORDERED: SEMA2INJ3 SC (05:08)
[2024-01-02] MEDS ORDERED: SEMAGLUTIDE 4 MG/3 ML SC SCH (05:15)
[2024-01-02] MEDS: ACCU-CHEK COMFORT CURVE STRIP VI SCH (05:24)
[2024-01-02] MEDS: InsuLIN REG 1unit/0.01ml Soln (100units/ml) SC SCH (05:25)
[2024-01-02] MEDS: CARISOPRODOL 350 MG TAB PO SCH (05:41)
[2024-01-02 06:09] LABS: Basophils # (auto) 0 10 ^3/uL (0-0.2); Basophils % (auto) 0.1 % (0.0-2.0); Eosinophils # (auto) 0 10 ^3/uL (0-0.8); Lymphocytes % (auto) 6.3 % (10.0-50.0); Mean Corpuscular Hemoglobin 32.8 pg (28.0-32.0); Mean Corpuscular Hgb Conc. 34.1 g/dL (32.0-36.0); Mean Corpuscular Volume 96.2 fL (80.0-100.0); Monocytes # (auto) 0.7 10 ^3/uL (0-1.3); Monocytes % (auto) 4.6 % (0.0-12.0); Neutrophils # (auto) 14.4 10 ^3/uL (1.6-8.6); Platelet Count (auto) 199 10^3/uL (140-450); Red Blood Cells 4.89 10^6/uL (4.5-5.90); Red Cell Distribution Width 13.8 % (11.8-14.3); White Blood Cell 16.2 10^3/uL (4.4-10.8)
[2024-01-02 06:25] LABS: Alanine Aminotransferase 41 U/L (7-40); Albumin 4.1 g/dL (3.2-4.8); Alkaline Phosphatase 144 U/L (46-116); Anion Gap 10 (5-15); Aspartate Aminotransferase 96 U/L (13-40); BUN/Creatinine Ratio 15.3 (10.0-20.0); Bilirubin, Total 0.7 mg/dL (0.2-1.0); Blood Urea Nitrogen 18 mg/dL (9-23); Calcium 9.7 mg/dL (8.7-10.4); Carbon Dioxide 29 mmol/L (20-31); Chloride 102 mmol/L (98-107); Glucose 103 mg/dL (74-106); Potassium 3.4 mmol/L (3.5-5.1); Sodium 141 mmol/L (136-145); Total Protein 7.6 g/dL (5.7-8.2)
[2024-01-02] MEDS: LEVALBUTEROL HCL 1.25 MG/3 ML NEB NEB SCH (06:51)
[2024-01-02] MEDS: IPRATROPIUM BROM 0.5 MG/2.5ML INH SOL NEB SCH (06:52)
[2024-01-02 08:25] LABS: Triglycerides 156 mg/dL (< 150)
[2024-01-02 08:26] LABS: LDL Cholesterol 58 mg/dL (< 100)
[2024-01-02 08:27] LABS: Cholesterol 106 mg/dL (< 200); HDL Cholesterol 23 mg/dL (40-59)
[2024-01-02] MEDS ORDERED: VANCOMYCIN PER PHARMACY 0 MG IV SCH (09:15)
[2024-01-02] MEDS: PARoxetine 20 MG TAB PO SCH (09:35)
[2024-01-02] MEDS: CHOLECALCIFEROL (VITD3) 1,000UNIT=25mCg TAB PO SCH (09:36)
[2024-01-02] MEDS: PANTOPRAZOLE 40 MG/10 ML VIAL INJ IV SCH (09:36)
[2024-01-02] MEDS: POTASSIUM CHL 20 Meq TABLET PO ONE ×2 (09:36→13:20)
[2024-01-02] MEDS ORDERED: predniSONE 20 MG TAB PO SCH (10:00)
[2024-01-02 10:02] LABS: Base Excess 1.8 mmol/L (-2.0-3.0)
[2024-01-02] MEDS: HYDROCORTISONE SOD SUCC 100 MG/2ML INJ VIAL IV SCH (11:12)
[2024-01-02] MEDS ORDERED: METHADONE HCL 10 MG TAB PO ONE (11:15)
[2024-01-02] MEDS: VANCOMYCIN 1GM/250ML KIT 200 ML IV SCH (11:41)
[2024-01-02] MEDS ORDERED: METHADONE HCL 10 MG TAB PO SCH (12:15)
--- NOTE | 2024-01-02 12:46 | DVHSR ---
APPROVED REPORT EXAM: Two-dimensional and M-mode echocardiogram with Doppler and color Doppler. Blood Pressure: 127/59 mmHg INDICATION SOB RISK FACTORS Obesity: Height: 6'0", Weight: 265 DIMENSIONS LVDd4.5 (3.8-5.7cm)LA (2D)3.2 (1.9-4.0cm)Aortic Root3.9 (2.0-3.7cm) LVDs3.0 (2.5-4.0cm)LA (MM) (1.9-4.0cm)Aortic Cusp Exc1.8 (1.5-2.0cm) EF (%) 60.0 (55-70%)Rt. Atrium (1.9-4.0cm)Asc. Aorta cm IVSd1.1 (0.7-1.1cm)RV (D) (1.8-2.4cm) PWd1.0 (0.7-1.1cm) Mitral Valve MitralMitral Stenosis E wave1.02m/sMV Mean GR.mmHg A wave0.85m/sMV Peak GR.mmHg E/A ratio1.22D MVAcm2 DECEL [id number] 1/2 Timems Aortic Valve Aortic ValveAortic Stenosis V11.02m/Bing Mean GR.3mmHg V21.30m/Bing Peak GR.7mmHg LVOT Diameter2.0 (1.8-2.4cm)Doppler AVA2.46cm2 Pulmonic Valve V21.08m/s Tricuspid Valve TR Velocity2.73m/s [id number] Other Information Quality : LimitedRhythm : Technically limited study due to body habitus, patient sitting up. Conclusion Normal left ventricular size and dimension. Normal left ventricular systolic function estimated ejec tion fraction 55%. There is a grade 1 diastolic dysfunction. Normal right ventricular size and dimension. Normal right ventricular systolic function. Mild-to-mo derately increased right ventricular systolic [id number] mm of mercury Normal biatrial size and dimension. Normal aortic valve structure and function. Normal mitral valve structure and function. Normal tricuspid valve structure and function. The pulmonary valve is grossly normal. No pericardial effusion.
[2024-01-02 13:18] LABS: Base Excess 1.3 mmol/L (-2.0-3.0)
[2024-01-02] MEDS: METHADONE HCL 10 MG TAB PO ONE (13:21)
[2024-01-02] MEDS: METHADONE HCL 10 MG TAB PO SCH (13:21)
[2024-01-02 14:32] LABS: Base Excess 2.2 mmol/L (-2.0-3.0)
[2024-01-02] MEDS: CEFEPIME 1GM/ 50ML 50 ML IV SCH (14:37)
--- NOTE | 2024-01-02 14:49 | DVHPNRES ---
Progress Note Date Seen: Jan 02, 2024 Resident Creating Document: MARTY BLAIR RESIDENT Medical Necessity Reason Pt with a Central, PICC or Fol: No Subjective Review of Systems Patient is a 49-year-old male with a past medical history of type 2 diabetes mellitus, lung fibrosis following COVID pneumonia in 2020 currently on home oxygen 3 liters/minute, fatty liver, obstructive sleep apnea on BiPAP, chronic back pain on methadone daily was brought to the ED with a worsening shortness of breath and altered mental status for 1 day prior to admission. Patient's partner reported that for 4-5 days prior to admission patient has started to have cough and night prior to admission it worsen when he had cough with expectoration with bright red blood, worsening shortness of breath. In the morning patient went to the methadone clinic to get his daily to and oncoming whom he was altered and sleepy and her difficulty breathing following which he was brought to the ED for further evaluation. On arrival to the ED patient's SpO2 was 79% following which he was put on a non-rebreather mask and eventually as he was desaturating he was put on facial BiPAP mask. Patient's blood pressure was stable on admission and remained stable throughout. Patient's initial ABGs showed respiratory acidosis with pCO2 52.9. CBC showed elevated WBC count with left shift. BMP showed normal electrolytes and GFR and creatinine within normal limits. Elevated AST ALT and ALP, elevated triglycerides. Showed normal LVEF at 55% with grade 1 diastolic dysfunction, no valvular abnormalities seen. Chest x-ray showed diffuse opacities more on the left than the right and pulmonary vascular congestion CT angiography showed no evidence of pulmonary embolism, marked predominantly ground-glass opacities in the left lung, supraclavicular, mediastinal and left hilar adenopathy. Past medical history: As per HPI Past surgical history: None Social history: Lives with girlfriend and denies smoking, alcohol, drug use. Home medications: Ozempic, fenofibrate, methadone 93mg daily, carisoprodol Review of systems Patient seen and examined at the bedside. Patient is alert and oriented x4, lethargic and lying in bed comfortably. Patient at the time of examination is on BiPAP with settings IPAP of 12 and EPAP of 5 and FiO2 75%. Patient's repeat ABG showed increased pCO2 and decreased pH, IPAP increased to 17 and EPAP 5 with a FiO2 70%. Lactic acid within normal limits at 1.6, potassium level mildly decreased at 3.4. Patient reported generalized body ache, restless legs. Objective vital signs Vital Sign Date Time Temp Pulse Resp B/P (MAP) Pulse Ox O2 Delivery O2 Flow Rate FiO2 01/02/24 14:25 88 136/76 90 Facial BiPAP Mask 70 01/02/24 11:29 20 01/02/24 08:00 99.5 99.5 01/02/24 06:51 12.0 medications Current Medications Medications Dose Ordered Sig/Joseph Route Start Time Stop Time Status Last Admin Dose Admin Ondansetron HCl 4 mg Q4HP PRN IV 01/01/24 21:00 Acetaminophen 650 mg Q6HP PRN PO 01/01/24 21:00 Nitroglycerin 0.4 mg Q5MINP PRN SL 01/01/24 21:00 Morphine Sulfate 2 mg Q30M PRN IV 01/01/24 21:00 Azithromycin 250 ml @ 125 mls/hr DAILY@2200 IV 01/02/24 22:00 Enoxaparin Sodium 40 mg DAILY SC 01/02/24 03:45 01/02/24 09:37 40 MG Pantoprazole Sodium 40 mg DAILY IV 01/02/24 10:00 01/02/24 09:36 40 MG Levalbuterol HCl 0.625 mg Q6HR NEB 01/02/24 06:00 01/02/24 11:16 0.625 MG Ipratropium [facility] 0.5 mg Q6HWA NEB 01/02/24 06:00 01/02/24 11:16 0.5 MG Cholecalciferol 4,000 unit DAILY PO 01/02/24 10:00 01/02/24 09:36 4,000 UNIT Alprazolam 0.25 mg Q8HP PRN PO 01/02/24 05:00 Paroxetine HCl 40 mg DAILY PO 01/02/24 10:00 01/02/24 09:35 40 MG Docusate Sodium 100 mg BIDPRN PRN PO 01/02/24 05:00 Diagnostic Test (Pha) 1 strip Q6HR 01/02/24 06:00 01/02/24 12:09 1 STRIP Insulin Human Regular Q6HR SC 01/02/24 06:00 Dextrose 50 ml UD PRN IV 01/02/24 05:00 Carisoprodol 350 mg TID PO 01/02/24 06:00 Patient Own Medication 1 cap DAILY PO 01/02/24 10:00 Hydrocortisone Sodium Succinate 100 mg Q12HR IV 01/02/24 10:00 01/02/24 11:12 100 MG Cefepime HCl 50 ml @ 12.5 mls/hr Q8HR IV 01/02/24 14:00 01/02/24 14:37 12.5 MLS/HR Vancomycin HCl 0 ml @ 0 mls/hr UD IV 01/02/24 09:15 Methadone HCl 80 mg DAILY PO 01/03/24 10:00 Cancel Methadone HCl 80 mg DAILY PO 01/02/24 12:15 01/02/24 13:21 80 MG Methadone HCl 80 mg DAILY PO 01/02/24 12:15 UNV Examination Physical Examination Gen - no pallor, no icterus, no cyanosis, no clubbing, no LAD, no edema . Skin - Patients skin is warm and dry. HEENT - normocephalic, atraumatic, dry mucous membranes. Neck - full ROM, no LAD, no JVD Pulmonary - decreased breath sounds bilaterally with bilateral fine inspiratory crackles more on the left side. no wheezing. cardiovascular - normal S1,S2 heard. no murmurs heard. peripheral pulses normal radial 2+, pedal 2+. capillary refill normal <2 secs. GI - soft abdomen without tenderness to palpation . no hepatospleenomegaly. Bowel sounds +. Neurological - Patient is A/O X 3. Bilateral upper extremity strength 5/5, bilateral lower extremity strength 4/5, no facial droop, normal speech, no tremor, no sensory deficiets. laboratory and microbiology Laboratory Tests 01/02/24 04:41 Test 01/02/24 04:41 Range/Units Serum Glucose 103 74-106 mg/dL Problem List/Assessment/Plan Problem List/Assessment/Plan Assessment and plan # Acute hypoxic respiratory failure likely due to pneumonia ?gram+/- ?atypical b acterial infection - currently on BiPAP with IPAP 17 and EPAP 5, FiO2 70% - levalbuterol and ipratropium nebulizer q.6 hours # sepsis likely due to pneumonia # respiratory acidosis with metabolic alkalosis # community-acquired pneumonia likely due to ?Gram +/- ? Atypical bacterial infection # history of COVID in 2020 , lung fibrosis worse on the left - chest x-ray shows bilateral opacities - chest CT shows marked predominantly ground-glass airspace opacities in the left lung diffusely and right perihilar lung area. Supraclavicular, mediastinal, left hilar adenopathy likely reactive - WBC count elevated with left shift - COVID and influenza type a and B negative - QuantiFERON TB gold test pending - patient complained of hemoptysis - initial ABG 01/01/2024 at 1434hrs showed pH 7.266, pCO2 52.9, bicarb 23.5 - repeat ABG showed increasing pCO2 - patient initially on non-rebreather mask then was put on BiPap - patient on vancomycin as per pharmacy, cefepime 1 g q.8 hour , azithromycin 500 g daily IV # pulmonary embolism ruled out - Wells score 2.5 - D-dimer elevated - CT angio chest revealed no evidence of pulmonary embolism - extremity venous study showed no evidence of femoropopliteal vein thrombosis # obstructive sleep apnea with BiPAP at night at home # echocardiogram shows left ventricular ejection fraction 55%, grade 1 diastolic dysfunction with mild to moderately increased right ventricular pressure # transaminitis with the elevated ALP # H/o episodes of rectal bleed - CT shows diffuse severe hepatic steatosis - GGT pending - patient does not complain of nausea,vomiting, diarrhoea,hematochezia,abdominal pain. # uncontrolled type 2 diabetes mellitus - HbA1c 7.7% - patient on mild insulin sliding scale - goal blood glucose 140-180 mg/dl # chronic back pain - At home the patient was on methadone 93 mg daily - Patient continued on methadone 80 mg daily # hypertriglyceridemia - fenofibrate daily Goals of care discussed with the patient and his girlfriend for over 35 minutes. Full code Plan discussed with Dr. Tang Plan discussed with: Patient, Other (girlfriend) My Orders My Orders Orders - MARTY BLAIR RESIDENT Procedure Category Date Status Time Drug Screen LAB 01/02/24 Logged 08:47 Abg W/ Co-Ox RT 01/02/24 Logged 09:31 Date of Service: Jan 02, 2024 Billing Provider: MAYELIN ACHARYA MD Common Visit Codes: [id number] INP/OBS CARE(HIGH) MARTY BLAIR RESIDENT Jan 02, 2024 14:49 MAYELIN ACHARYA MD Jan 09, 2024 00:21
[2024-01-02 15:28] LABS: Urine Bacteria None Seen /hpf (None Seen)
[2024-01-02 16:04] LABS: Urine Blood 1+ /uL (Negative); Urine Clarity Clear (Clear); Urine Color Yellow (Yellow); Urine Protein, UAD 1+ (Negative); Urine Specific Gravity 1.038 (1.001-1.035); Urine Urobilinogen Normal (Negative); Urine WBC 4 /hpf (0 - 3)
[2024-01-02 16:08] LABS: Amphetamine Screen, Urine Neg (NEGATIVE); Barbiturate Scree,Urine Neg (NEGATIVE); Benzodiazephine Screen, Urine Pos (NEGATIVE); Cocaine Screen, Urine Neg (NEGATIVE); Opiate Scree,Urine Neg (NEGATIVE)
[2024-01-02 16:09] LABS: Cannabinoid Screen, Urine Neg (NEGATIVE); Phencyclidine Screen, Urine Neg (NEGATIVE)
[2024-01-02 17:33] LABS: Base Excess 2.7 mmol/L (-2.0-3.0)
[2024-01-02 17:37] LABS: Anion Gap 7 (5-15); Calcium 9.3 mg/dL (8.7-10.4); Carbon Dioxide 29 mmol/L (20-31); Chloride 104 mmol/L (98-107); Potassium 4.3 mmol/L (3.5-5.1); Sodium 140 mmol/L (136-145)
[2024-01-02 17:42] LABS: Glucose 165 mg/dL (74-106)
[2024-01-02 17:43] LABS: BUN/Creatinine Ratio 17.1 (10.0-20.0); Blood Urea Nitrogen 19 mg/dL (9-23)
--- NOTE | 2024-01-02 19:43 | DVHINCON2 ---
Date of service: Jan 02, 2024 Referring Physician George Mott MD Reason for Consultation Acute hypoxic respiratory failure, acute on chronic hypercarbic respiratory failure, sepsis due to pneumonia, JAMES, possible pulmonary HTN. History of Present Illness A 49-year-old man with PMHx that includes COPD on 2 L home O2, hypertension, JAMES with CPAP noncompliance, diabetes, and COVID-19 in approximately 2021 who presented to ED on 01/01/24 with shortness of breath and a cough x3 days. His SPO2 was 70% as he ran out of his home oxygen supply, which progressed to shortness of breath at rest. He was prescribed amoxicillin and Z-Veto as outpatient without improvement. At presentation he was mildly confused, likely due to metabolic encephalopathy. Pt was noted to be in hypercapnic, hypoxic respiratory failure with pulmonary edema with possible infection, needing IV diuresis, antibiotics and BIPAP. Patient was admitted for further care and pulmonary consultation is requested for evaluation and management due to these findings. Review of Systems: 14-point review of systems negative unless otherwise noted above. Past Medical History: COPD chronic oxygen-dependent (2L), hx of COVID-19, CHF, diabetes, hyperlipidemia, pulmonary hypertension, anxiety, osteoarthritis, obesity. Past Surgical History: None Medications: Reviewed. Allergies: No known drug allergies. Family History: No family history of premature CAD. No family history of lung disorders. Social History: Nonsmoker. No alcohol or illicit drug use. Allergies: Coded Allergies: NO KNOWN ALLERGIES (Unverified , 04/03/15) Home Meds Reported Medications Hydrocodone-Acetaminophen (Hydrocodone Bitartrate/AC 10-325 mg) 1 Tab Tab, 1 TAB PO Q6-8HR for 23 Days, #90 01/03/24 Azithromycin (ZITHROMAX TABLET) 250 Mg Tb, TAB PO UD for 5 Days, #6 TAKE 2 TABLETS BY MOUTH ON DAY 1, THEN TAKE 1 TABLET BY MOUTH DAILY ON DAYS 2-5. 01/03/24 Amoxicillin Trihydrate (Amoxicillin) 500 Mg Cap, 1 CAP PO Q8HR for 10 Days, #30 01/03/24 Buspirone Hcl (Buspirone Hcl) 10 Mg Tab, 1 TAB PO BID for 30 Days, #60 01/03/24 Albuterol Sulfate (Albuterol Sulfate Hfa) 108 Mcg/Act Aer, 2 PUFF IN Q6HR for 25 Days, #18 01/03/24 Docusate Sodium (Colace) 100 Mg Cap, 1 CAP PO BID for 30 Days, #60 01/03/24 Alprazolam (Alprazolam) 0.25 Mg Tab, 0.5 TAB PO DAILY PRN for ANXIETY for 30 Days, #15 01/03/24 Ibuprofen (Ibuprofen) 800 Mg Tab, 1 TAB PO TID for 30 Days, #90 01/03/24 Empagliflozin (Jardiance) 25 Mg Tab, 1 TAB PO QAM for 30 Days, #30 01/03/24 Paroxetine HCl (Paroxetine Hydrochloride) 30 Mg Tab, 40 MG PO DAILY for 30 Days, #30 01/03/24 Cholecalciferol (Vitamin D-3) 5,000 Unit Cap, 1 CAP PO DAILY for 30 Days, #30 01/03/24 Semaglutide (Ozempic) 4 Mg/3 Ml Inj, 1 MG SC QWEEKLY for 28 Days, #3 01/03/24 Carisoprodol (Carisoprodol) 350 Mg Tab, 1 TAB PO TID 01/02/24 Fenofibrate (Fenofibrate Micronized) 134 Mg Cap, 1 CAP PO DAILY 01/02/24 Discontinued Reported Medications Semaglutide (Ozempic) 2 Mg/3 Ml Inj, 0.5 MG SC QWEEKLY 01/02/24 Current Medications Current Medications Medications (Trade) Dose Ordered Sig/Joseph Route PRN Reason Start Time Stop Time Status Last Admin Ondansetron HCl (Zofran) 4 mg Q4HP PRN IV NAUSEA / VOMITING 01/01/24 21:00 Docusate Sodium (Colace Capsule) 100 mg BIDPRN PRN PO FOR CONSTIPATION 01/01/24 21:00 01/02/24 05:05 DC Acetaminophen (Tylenol Tablet) 650 mg Q6HP PRN PO PAIN SCALE 1-3 OR TEMP>100.4 01/01/24 21:00 Nitroglycerin (Ntrostat Sublingual) 0.4 mg Q5MINP PRN SL FOR CHEST PAIN 01/01/24 21:00 Morphine Sulfate 2 mg Q30M PRN IV FOR CHEST PAIN 01/01/24 21:00 Ceftriaxone Sodium 50 ml @ 100 mls/hr DAILY@2100 IV 01/02/24 21:00 01/02/24 09:19 DC Azithromycin 250 ml @ 125 mls/hr DAILY@2200 IV 01/02/24 22:00 Enoxaparin Sodium (Lovenox) 40 mg DAILY SC 01/02/24 03:45 01/02/24 09:37 Pantoprazole Sodium (Protonix) 40 mg DAILY IV 01/02/24 10:00 01/02/24 09:36 Levalbuterol HCl (Xopenex Medneb) 0.625 mg Q6HR NEB 01/02/24 06:00 01/02/24 18:08 Ipratropium [place] (Atrovent Medneb) 0.5 mg Q6HWA NEB 01/02/24 06:00 01/02/24 18:08 Prednisone 40 mg DAILY PO 01/02/24 10:00 01/02/24 09:19 DC Cholecalciferol (Vitamin D3 Tablet) 4,000 unit DAILY PO 01/02/24 10:00 01/02/24 09:36 Alprazolam (Xanax Tablet) 0.25 mg Q8HP PRN PO ANXIETY 01/02/24 05:00 Paroxetine HCl (Paxil Tablet) 40 mg DAILY PO 01/02/24 10:00 01/02/24 09:35 Docusate Sodium (Colace Capsule) 100 mg BIDPRN PRN PO FOR CONSTIPATION 01/02/24 05:00 Diagnostic Test (Pha) (Accu-Chek Comfort Curve T) 1 strip Q6HR 01/02/24 06:00 01/02/24 18:00 Insulin Human Regular (InsuLIN R) Q6HR SC 01/02/24 06:00 01/02/24 18:00 Dextrose 50 ml UD PRN IV Blood Sugar LESS THAN 60 01/02/24 05:00 Carisoprodol (Soma Tablet) 350 mg TID PO 01/02/24 06:00 Patient Own Medication 1 cap DAILY PO 01/02/24 10:00 Patient Own Medication 0.5 mg QWEEKLY SC 01/02/24 05:15 01/02/24 09:19 DC Hydrocortisone Sodium Succinate (Solu-CORTEF INJECTION) 100 mg Q12HR IV 01/02/24 10:00 01/02/24 11:12 Cefepime HCl 50 ml @ 12.5 mls/hr Q8HR IV 01/02/24 14:00 01/02/24 14:37 Vancomycin HCl 0 ml @ 0 mls/hr UD IV 01/02/24 09:15 Methadone HCl (Methadone HCl Tablet) 80 mg DAILY PO 01/03/24 10:00 01/02/24 12:07 DC Vancomycin HCl 200 ml @ 200 mls/hr Q1H IV 01/02/24 11:15 01/02/24 13:14 DC 01/02/24 12:15 Methadone HCl (Methadone HCl Tablet) 10 mg DAILY PO 01/03/24 10:00 01/02/24 12:07 DC Methadone HCl (Methadone HCl Tablet) 80 mg DAILY PO 01/03/24 10:00 Cancel Methadone HCl (Methadone HCl Tablet) 80 mg DAILY PO 01/02/24 12:15 01/02/24 13:21 Methadone HCl (Methadone HCl Tablet) 80 mg DAILY PO 01/02/24 12:15 UNV Vital Signs Vital Signs Date Time Temp Pulse Resp B/P (MAP) Pulse Ox O2 Delivery O2 Flow Rate FiO2 01/02/24 19:29 98.1 96 13 137/87 (104) 90 98.1 01/02/24 16:27 Facial BiPAP Mask 60 01/02/24 06:51 12.0 Physical Exam Gen.: Patient lying in bed in no apparent distress. On BiPAP. Head: Normocephalic, atraumatic. Eyes: EOMI/PERRLA. Ears: Normal hearing. Normal anatomy. Neck/trachea: Trachea midline, supple. Nose: Normal external anatomy. Mouth: Moist mucous membranes. Chest: Decreased air entry bilaterally. No wheezing or rhonchi. Cardiovascular: Positive S1, positive S2. Regular rate and rhythm. Abdomen: Positive bowel sounds in all 4 quadrants. Soft, non-tender, non- distended. : Deferred. Rectal: Deferred. Skin: Warm, dry. Intact. Extremities: 2+ radial pulses bilaterally. No lower extremity edema. Neuro: Awake, alert, oriented x3. No gross motor or sensory deficits. Cranial n erves II through XII intact. Gait not assessed. Labs/Diagnostic Data Labs Test 01/02/24 18:22 01/02/24 17:27 01/02/24 16:54 01/02/24 14:20 Range/Units POC Glucose 179 H 70-106 mg/dl Blood Gas Specimen Type Arterial Blood Gas Sample Site Right radial Blood Gas Patient Temperature 37.0 Arterial Blood Date Drawn [id number] Arterial Blood pH 7.331 L 7.350-7.450 Arterial Blood Partial Pressure CO2 59.2 H 35.0-48.0 mmHg Arterial Blood Partial Pressure O2 63.7 L 83.0-108.0 mmHg Arterial Blood HCO3 30.6 H 21.0-28.0 mmol/L Arterial Blood Oxygen Saturation 91.1 L 94.0-98.0 % Arterial Blood Base Excess 2.7 -2.0-3.0 mmol/L Arterial Blood Oxyhemoglobin 90.2 L 94.0-98.0 % Arterial Blood Carboxyhemoglobin 0.5 0.5-1.5 % Arterial Blood Methemoglobin 0.5 0.0-1.5 % Bhaskar Test Yes Blood Gas Total Hemoglobin 17.00 13.5-17.5 g/dL Blood Gas Modality Mask - bipap Blood Gas Spontaneous Rate 14 FiO2 % 70.0 Blood Gas Spontaneous Tidal Volume 829 Blood Gas EPAP 6 Blood Gas IPAP 17 Sodium Level 140 136-145 mmol/L Potassium Level 4.3 3.5-5.1 mmol/L Chloride Level 104 98-107 mmol/L Carbon Dioxide Level 29 20-31 mmol/L Anion Gap 7 5-15 Blood Urea Nitrogen 19 9-23 mg/dL Creatinine 1.11 0.700-1.30 mg/dL Glomerular Filtration Rate Calc 82 >90 mL/min BUN/Creatinine Ratio 17.1 10.0-20.0 Serum Glucose 165 H 74-106 mg/dL Calcium Level 9.3 8.7-10.4 mg/dL Gamma Glutamyl Transpeptidase 88 H <73 U/L Blood Gas Critical Value Read Back Yes Blood Gas Notified Whom adin Pickard md Blood Gas Notified Time [id number] Blood Gas Notified By Home Maker ella Trejo 01/02/24 12:53 01/02/24 09:49 01/02/24 09:06 01/02/24 08:49 Range/Units Lactic Acid Level 1.6 0.4-2.0 mmol/L Blood Gas Set Respiration Rate 12.0 Urine Color Yellow Yellow Urine Clarity Clear Clear Urine pH 6.0 5.0-9.0 Urine Specific [place] 1.038 H 1.001-1.035 Urine Protein 1+ H Negative Urine Ketones 1+ H Negative Urine Blood 1+ H Negative /uL Urine Nitrite Negative Negative Urine Bilirubin Negative Negative Urine Urobilinogen Normal Negative mg/dL Urine Leukocyte Esterase Negative Negative /uL Urine RBC 1 0 - 3 /hpf Urine WBC 4 0 - 3 /hpf Urine Squamous Epithelial Cells None seen <5 /hpf Urine Bacteria None seen None Seen /hpf Urine Glucose 4+ H Normal mg/dL Urine Opiates Screen Neg NEGATIVE Urine Fentanyl Screen Neg NEGATIVE Urine Barbiturates Screen Neg NEGATIVE Urine Phencyclidine Screen Neg NEGATIVE Urine Amphetamines Screen Neg NEGATIVE Urine Benzodiazepines Screen Pos NEGATIVE Urine Cocaine Screen Neg NEGATIVE Urine Cannabinoids Screen Neg NEGATIVE Test 01/02/24 04:41 01/01/24 21:56 01/01/24 21:55 01/01/24 17:09 Range/Units White Blood Count 16.2 H 4.4-10.8 10^3/uL Red Blood Count 4.89 4.5-5.90 10^6/uL Hemoglobin 16.0 13.5-17.5 g/dL Hematocrit 47.0 41.0-53.0 % Mean Corpuscular Volume 96.2 80.0-100.0 fL Mean Corpuscular Hemoglobin 32.8 H 28.0-32.0 pg Mean Corpuscular Hemoglobin Concent 34.1 32.0-36.0 g/dL Red Cell Distribution Width 13.8 11.8-14.3 % Platelet Count 199 140-450 10^3/uL Mean Platelet Volume 7.3 6.9-10.8 fL Neutrophils (%) (Auto) 89.0 H 37.0-80.0 % Lymphocytes (%) (Auto) 6.3 L 10.0-50.0 % Monocytes (%) (Auto) 4.6 0.0-12.0 % Eosinophils (%) (Auto) 0.0 0.0-7.0 % Basophils (%) (Auto) 0.1 0.0-2.0 % Neutrophils # (Auto) 14.4 H 1.6-8.6 10 ^3/uL Lymphocytes # (Auto) 1.0 0.4-5.4 10 ^3/uL Monocytes # (Auto) 0.7 0-1.3 10 ^3/uL Eosinophils # (Auto) 0 0-0.8 10 ^3/uL Basophils # (Auto) 0 0-0.2 10 ^3/uL Nucleated Red Blood Cells 0.0 % Hemoglobin A1c 7.7 H <5.7 % A1C Magnesium Level 2.3 1.6-2.6 mg/dL Total Bilirubin 0.7 0.2-1.0 mg/dL Aspartate Amino Transferase (AST) 96 H 13-40 U/L Alanine Aminotransferase (ALT) 41 H 7-40 U/L Alkaline Phosphatase 144 H 46-116 U/L Total Protein 7.6 5.7-8.2 g/dL Albumin 4.1 3.2-4.8 g/dL Triglycerides Level 156 H < 150 mg/dL Cholesterol Level 106 < 200 mg/dL LDL Cholesterol 58 < 100 mg/dL HDL Cholesterol 23 L 40-59 mg/dL Blood Gas Tidal Volume 444.0 D-Dimer, Quantitative 1.19 H 0.0-0.49 mg/L FEU B-Type Natriuretic Peptide 10.82 0-100 pg/mL Plasma/Serum Blood Alcohol 3.9 <10 mg/dL Influenza Type A Antigen Negative Negative Influenza Type B Antigen Negative Negative SARS-CoV-2 Antigen (Rapid) Negative NEGATIVE Test 01/01/24 15:38 01/01/24 14:34 Range/Units Troponin I High Sensitivity < 3 L </=54 ng/L Blood Gas Liter Flow 15.00 Assessment Impression: Acute hypoxic respiratory failure Acute on chronic hypercarbic respiratory failure Sepsis due to pneumonia Pneumonia, likely gram negative JAMES, on BiPAP Possible pulmonary hypertension 2/2 WHO Class II CHF + WHO Class III JAMES w/ chronic hypercarbic respiratory failure Obesity, BMI 36 Plan: ABG reviewed, notable for acidemia d/t CO2 retention. On BiPAP with IPAP 17, EPAP 8 Taper FiO2 as tolerated. Obtain ABG in the AM. Antibiotics Follow up cultures. Diurese to euvolemia Monitor renal function. Monitor electrolytes. Supplement as necessary. Monitor ins and outs. Echo reviewed. Cardiology recs appreciated. GI/DVT prophylaxis. Prognosis: Poor given patient's multiple co-morbidities. Condition: Critical Rest of plan per hospitalist and other consultants. A total of 35 minutes of critical care time was spent reviewing the patient record, examining the patient, making a diagnostic and therapeutic plan, discussing this plan with the medical personnel, following up on diagnostic studies and following the patient for clinical stability excluding any and all procedures. At least 50% of this time was spent in direct, [id number] cont act. Thank you Dr. George Mott MD, for allowing me to participate in this patient's care. Further recommendations will depend on the patient's clinical course. Please do not hesitate to contact me if you have any questions or concerns. This medical document was created using an electronic medical record system with [employer] computerized dictation system. Although these documentations are being carefully reviewed, there may still be some phonetic and typographical changes. The errors are purely typographical, due to imperfection on the software program, and do not reflect any compromise in the patient's medical care. Plan discussed with: Patient, Other (RN, MD Mott) ANGELO PICKARD MD Jan 02, 2024 19:43
[2024-01-02] MEDS ORDERED: cefTRIAXone 1GM/50ML D5W 50 ML IV SCH (21:00)
[2024-01-03] VITALS (11 sets, daily range): BP systolic 117–131; BP diastolic 75–79; PULSE 78–94; RESP 12–17; O2SAT 88–95
[2024-01-03 06:38] LABS: Base Excess 4.1 mmol/L (-2.0-3.0)
[2024-01-03 07:44] LABS: Hematocrit 46.1 % (41.0-53.0); Hemoglobin 15.8 g/dL (13.5-17.5); Mean Corpuscular Hemoglobin 33.1 pg (28.0-32.0); Mean Corpuscular Hgb Conc. 34.4 g/dL (32.0-36.0); Mean Corpuscular Volume 96.3 fL (80.0-100.0); Platelet Count (auto) 173 10^3/uL (140-450); Red Blood Cells 4.78 10^6/uL (4.5-5.90); Red Cell Distribution Width 13.7 % (11.8-14.3); White Blood Cell 10.9 10^3/uL (4.4-10.8)
[2024-01-03 07:49] LABS: Band Neutrophils % (manual) 0; Basophils % (manual) 0 (0.0-2.0); Blast Cells 0; Eosinophils % (manual) 0 (0-7); Metamyelocytes % 0; Myelocytes % 0; Promyelocytes % 0; Reactive Lymphocytes 0
[2024-01-03 08:03] LABS: Alanine Aminotransferase 33 U/L (7-40); Albumin 3.7 g/dL (3.2-4.8); Alkaline Phosphatase 121 U/L (46-116); Anion Gap 6 (5-15); Aspartate Aminotransferase 75 U/L (13-40); BUN/Creatinine Ratio 23.5 (10.0-20.0); Blood Urea Nitrogen 24 mg/dL (9-23); Calcium 9.5 mg/dL (8.7-10.4); Carbon Dioxide 30 mmol/L (20-31); Chloride 104 mmol/L (98-107); Glucose 146 mg/dL (74-106); Magnesium 2.6 mg/dL (1.6-2.6); Potassium 3.9 mmol/L (3.5-5.1); Sodium 140 mmol/L (136-145)
[2024-01-03 08:04] LABS: Bilirubin, Total 0.9 mg/dL (0.2-1.0); Total Protein 7.4 g/dL (5.7-8.2)
[2024-01-03] MEDS ORDERED: METHADONE HCL 10 MG TAB PO SCH ×3 (10:00)
[2024-01-03 11:05] LABS: Lymphocytes % (manual) 16 (10.0-50.0); Monocytes % (manual) 13 (0-12)
[2024-01-03 11:06] LABS: Platelet Estimate Adequate
[2024-01-03] MEDS: VANCOMYCIN 1.25GM/250ML 250 ML IV SCH (12:04)
--- NOTE | 2024-01-03 17:44 | DVHPNRES ---
Progress Note Date Seen: Jan 03, 2024 Resident Creating Document: STEFANI DESAI RESIDENT Medical Necessity Reason Pt with a Central, PICC or Fol: No Subjective Review of Systems Patient is a 49-year-old male with a past medical history of type 2 diabetes mellitus, lung fibrosis following COVID pneumonia in 2020 currently on home oxygen 3 liters/minute, fatty liver, obstructive sleep apnea on BiPAP, chronic back pain on methadone daily was brought to the ED with a worsening shortness of breath and altered mental status for 1 day prior to admission. Patient's partner reported that for 4-5 days prior to admission patient has started to have cough and night prior to admission it worsen when he had cough with expectoration with bright red blood, worsening shortness of breath. In the morning patient went to the methadone clinic to get his daily to and oncoming whom he was altered and sleepy and her difficulty breathing following which he was brought to the ED for further evaluation. On arrival to the ED patient's SpO2 was 79% following which he was put on a non-rebreather mask and eventually as he was desaturating he was put on facial BiPAP mask. Patient's blood pressure was stable on admission and remained stable throughout. Patient's initial ABGs showed respiratory acidosis with pCO2 52.9. CBC showed elevated WBC count with left shift. BMP showed normal electrolytes and GFR and creatinine within normal limits. Elevated AST ALT and ALP, elevated triglycerides. Showed normal LVEF at 55% with grade 1 diastolic dysfunction, no valvular abnormalities seen. Chest x-ray showed diffuse opacities more on the left than the right and pulmonary vascular congestion CT angiography showed no evidence of pulmonary embolism, marked predominantly ground-glass opacities in the left lung, supraclavicular, mediastinal and left hilar adenopathy. Past medical history: As per HPI Past surgical history: None Social history: Lives with girlfriend and denies smoking, alcohol, drug use. Home medications: Ozempic, fenofibrate, methadone 93mg daily, carisoprodol Review of systems Patient seen and examined at the bedside. Patient is alert and oriented x4, lethargic and lying in bed comfortably. Patient was on BiPAP. Patient's ABG normalized, discontinue BiPAP for now and continue BiPAP at nighttime. Objective vital signs Vital Sign Date Time Temp Pulse Resp B/P (MAP) Pulse Ox O2 Delivery O2 Flow Rate FiO2 11/26/24 16:01 75 16 126/62 (83) 91 01/03/24 14:20 70.0 100 01/03/24 11:42 Facial BiPAP Mask 01/03/24 07:30 98.2 98.2 Total Intake and Output 01/02/24 01/02/24 01/03/24 15:00 23:00 07:00 Intake Total 720 ml 300.0 ml Output Total 650 ml Balance 70 ml 300.0 ml medications Current Medications Medications Dose Ordered Sig/Joseph Route Start Time Stop Time Status Last Admin Dose Admin Ondansetron HCl 4 mg Q4HP PRN IV 01/01/24 21:00 Acetaminophen 650 mg Q6HP PRN PO 01/01/24 21:00 Nitroglycerin 0.4 mg Q5MINP PRN SL 01/01/24 21:00 Morphine Sulfate 2 mg Q30M PRN IV 01/01/24 21:00 Azithromycin 250 ml @ 125 mls/hr DAILY@2200 IV 01/02/24 22:00 01/03/24 00:15 125 MLS/HR Enoxaparin Sodium 40 mg DAILY SC 01/02/24 03:45 01/03/24 09:39 40 MG Pantoprazole Sodium 40 mg DAILY IV 01/02/24 10:00 01/03/24 09:36 40 MG Levalbuterol HCl 0.625 mg Q6HR NEB 01/02/24 06:00 01/03/24 11:56 0.625 MG Ipratropium [place] 0.5 mg Q6HWA NEB 01/02/24 06:00 01/03/24 11:56 0.5 MG Cholecalciferol 4,000 unit DAILY PO 01/02/24 10:00 01/03/24 09:40 4,000 UNIT Alprazolam 0.25 mg Q8HP PRN PO 01/02/24 05:00 Paroxetine HCl 40 mg DAILY PO 01/02/24 10:00 01/03/24 09:38 40 MG Docusate Sodium 100 mg BIDPRN PRN PO 01/02/24 05:00 Diagnostic Test (Pha) 1 strip Q6HR 01/02/24 06:00 01/03/24 12:00 1 STRIP Insulin Human Regular Q6HR SC 01/02/24 06:00 01/03/24 12:08 2 UNITS Dextrose 50 ml UD PRN IV 01/02/24 05:00 Carisoprodol 350 mg TID PO 01/02/24 06:00 Patient Own Medication 1 cap DAILY PO 01/02/24 10:00 Hydrocortisone Sodium Succinate 100 mg Q12HR IV 01/02/24 10:00 01/03/24 09:36 100 MG Cefepime HCl 50 ml @ 12.5 mls/hr Q8HR IV 01/02/24 14:00 01/03/24 15:50 12.5 MLS/HR Vancomycin HCl 0 ml @ 0 mls/hr UD IV 01/02/24 09:15 Methadone HCl 80 mg DAILY PO 01/03/24 10:00 Cancel Methadone HCl 80 mg DAILY PO 01/02/24 12:15 01/03/24 10:11 80 MG Methadone HCl 80 mg DAILY PO 01/02/24 12:15 UNV Vancomycin HCl 250 ml @ 200 mls/hr Q8H IV 01/03/24 12:00 01/03/24 12:04 200 MLS/HR Examination Physical Examination Gen - no pallor, no icterus, no cyanosis, no clubbing, no LAD, no edema . Skin - Patients skin is warm and dry. HEENT - normocephalic, atraumatic, dry mucous membranes. Neck - full ROM, no LAD, no JVD Pulmonary - decreased breath sounds bilaterally with bilateral fine inspiratory crackles more on the left side. no wheezing. cardiovascular - normal S1,S2 heard. no murmurs heard. peripheral pulses normal radial 2+, pedal 2+. capillary refill normal <2 secs. GI - soft abdomen without tenderness to palpation . no hepatospleenomegaly. Bowel sounds +. Neurological - Patient is A/O X 3. Bilateral upper extremity strength 5/5, bilateral lower extremity strength 4/5, laboratory and microbiology Laboratory Tests 01/03/24 07:29 Test 01/03/24 07:29 Range/Units Serum Glucose 146 H 74-106 mg/dL Microbiology Date/Time Source Procedure Growth Status 01/02/24 16:56 Sputum Gram Stain - Final Resulted 01/02/24 16:56 Sputum Respiratory Culture - Preliminary Resulted 01/02/24 12:53 Blood Blood Culture - Preliminary NO GROWTH AFTER 24 HOURS OF INCUBATION. Resulted Problem List/Assessment/Plan Problem List/Assessment/Plan # sepsis likely due to pneumonia # respiratory acidosis with metabolic alkalosis # community-acquired pneumonia likely due to ?Gram +/- ? Atypical bacterial infection # history of COVID in 2020 , lung fibrosis worse on the left - chest x-ray shows bilateral opacities - chest CT shows marked predominantly ground-glass airspace opacities in the left lung diffusely and right perihilar lung area. Supraclavicular, mediastinal, left hilar adenopathy likely reactive - WBC count elevated with left shift - COVID and influenza type a and B negative - QuantiFERON TB gold test pending - patient complained of hemoptysis - initial ABG 01/01/2024 at 1434hrs showed pH 7.266, pCO2 52.9, bicarb 23.5 - repeat ABG showed increasing pCO2 - patient initially on non-rebreather mask then was put on BiPap - patient on vancomycin as per pharmacy, cefepime 1 g q.8 hour , azithromycin 500 g daily IV # Acute hypoxic respiratory failure likely due to pneumonia possible gram+/- bacterial infection - Patient was on BiPAP. Patient's ABG normalized, discontinue BiPAP for now and continue BiPAP at nighttime. - levalbuterol and ipratropium nebulizer q.6 hours # pulmonary embolism ruled out - Wells score 2.5 - D-dimer elevated - CT angio chest revealed no evidence of pulmonary embolism - extremity venous study showed no evidence of femoropopliteal vein thrombosis # obstructive sleep apnea with BiPAP at night at home # echocardiogram shows left ventricular ejection fraction 55%, grade 1 diastolic dysfunction with mild to moderately increased right ventricular pressure # transaminitis with the elevated ALP # H/o episodes of rectal bleed - CT shows diffuse severe hepatic steatosis - GGT pending - patient does not complain of nausea,vomiting, diarrhoea,hematochezia,abdominal pain. # uncontrolled type 2 diabetes mellitus - HbA1c 7.7% - patient on mild insulin sliding scale - goal blood glucose 140-180 mg/dl # chronic back pain - At home the patient was on methadone 93 mg daily - Patient continued on methadone 80 mg daily # hypertriglyceridemia - fenofibrate daily Critical Care time spent 47 minutes including patient care, chart review and updating family, excluding procedure. Plan discussed with Dr. Payan Plan discussed with: Patient Date of Service: Jan 03, 2024 Billing Provider: ANMOL PAYAN MD Common Visit Codes: [id number] CARE 30-74 MIN STEFANI DESAI RESIDENT Jan 03, 2024 17:44 ANMOL PAYAN MD Jan 04, 2024 12:48
[2024-01-04] VITALS (12 sets, daily range): BP systolic 118–133; BP diastolic 66–87; PULSE 68–85; RESP 11–20; O2SAT 89–93
[2024-01-04 04:25] LABS: Hematocrit 44.9 % (41.0-53.0); Hemoglobin 15.6 g/dL (13.5-17.5); Mean Corpuscular Hemoglobin 33.2 pg (28.0-32.0); Mean Corpuscular Hgb Conc. 34.8 g/dL (32.0-36.0); Mean Corpuscular Volume 95.4 fL (80.0-100.0); Platelet Count (auto) 173 10^3/uL (140-450); Red Cell Distribution Width 13.5 % (11.8-14.3); White Blood Cell 12.2 10^3/uL (4.4-10.8)
[2024-01-04 04:34] LABS: Basophils % (manual) 0 (0.0-2.0); Blast Cells 0; Eosinophils % (manual) 0 (0-7); Promyelocytes % 0; Reactive Lymphocytes 0
[2024-01-04 04:35] LABS: Calcium 9.6 mg/dL (8.7-10.4); Chloride 100 mmol/L (98-107); Potassium 4.1 mmol/L (3.5-5.1); Sodium 136 mmol/L (136-145)
[2024-01-04 04:36] LABS: Anion Gap 6 (5-15); Carbon Dioxide 30 mmol/L (20-31)
[2024-01-04 04:41] LABS: BUN/Creatinine Ratio 28.3 (10.0-20.0); Blood Urea Nitrogen 26 mg/dL (9-23); Glucose 126 mg/dL (74-106)
[2024-01-04 06:51] LABS: Band Neutrophils % (manual) 1; Lymphocytes % (manual) 18 (10.0-50.0); Metamyelocytes % 1; Monocytes % (manual) 11 (0-12); Myelocytes % 2; Platelet Estimate Adequate
[2024-01-04 06:52] LABS: Giant Platelets Few; RBC Morphology Normal
[2024-01-04] MEDS: VANCOMYCIN 1.25GM/250ML 250 ML IV SCH ×2 (08:08→16:59)
--- NOTE | 2024-01-04 15:58 | DVHPNRES ---
Progress Note Date Seen: Jan 04, 2024 Resident Creating Document: STEFANI DESAI RESIDENT Medical Necessity Reason Pt with a Central, PICC or Fol: No Subjective Review of Systems Patient is a 49-year-old male with a past medical history of type 2 diabetes mellitus, lung fibrosis following COVID pneumonia in 2020 currently on home oxygen 3 liters/minute, fatty liver, obstructive sleep apnea on BiPAP, chronic back pain on methadone daily was brought to the ED with a worsening shortness of breath and altered mental status for 1 day prior to admission. Patient's partner reported that for 4-5 days prior to admission patient has started to have cough and night prior to admission it worsen when he had cough with expectoration with bright red blood, worsening shortness of breath. In the morning patient went to the methadone clinic to get his daily to and oncoming whom he was altered and sleepy and her difficulty breathing following which he was brought to the ED for further evaluation. On arrival to the ED patient's SpO2 was 79% following which he was put on a non-rebreather mask and eventually as he was desaturating he was put on facial BiPAP mask. Patient's blood pressure was stable on admission and remained stable throughout. Patient's initial ABGs showed respiratory acidosis with pCO2 52.9. CBC showed elevated WBC count with left shift. BMP showed normal electrolytes and GFR and creatinine within normal limits. Elevated AST ALT and ALP, elevated triglycerides. Showed normal LVEF at 55% with grade 1 diastolic dysfunction, no valvular abnormalities seen. Chest x-ray showed diffuse opacities more on the left than the right and pulmonary vascular congestion CT angiography showed no evidence of pulmonary embolism, marked predominantly ground-glass opacities in the left lung, supraclavicular, mediastinal and left hilar adenopathy. Past medical history: As per HPI Past surgical history: None Social history: Lives with girlfriend and denies smoking, alcohol, drug use. Home medications: Ozempic, fenofibrate, methadone 93mg daily, carisoprodol Review of systems Patient seen and examined at the bedside. Patient is alert and oriented x4, lethargic and lying in bed comfortably. Patient was on BiPAP. Patient's ABG normalized, Contimue High flow O2 for now and continue BiPAP at nighttime. Objective vital signs Vital Sign Date Time Temp Pulse Resp B/P (MAP) Pulse Ox O2 Delivery O2 Flow Rate FiO2 11/27/24 14:00 71 18 114/72 (86) 92 01/04/24 13:26 70.0 100 01/04/24 07:39 Hi-Flow Heated NC+ 01/03/24 20:00 98.0 98.0 Total Intake and Output 01/03/24 01/03/24 01/04/24 15:00 23:00 07:00 Intake Total 50.0 ml 326 ml 300 ml Output Total 400 ml 700 ml Balance 50.0 ml -74 ml -400 ml medications Current Medications Medications Dose Ordered Sig/Joseph Route Start Time Stop Time Status Last Admin Dose Admin Ondansetron HCl 4 mg Q4HP PRN IV 01/01/24 21:00 Acetaminophen 650 mg Q6HP PRN PO 01/01/24 21:00 Nitroglycerin 0.4 mg Q5MINP PRN SL 01/01/24 21:00 Morphine Sulfate 2 mg Q30M PRN IV 01/01/24 21:00 Azithromycin 250 ml @ 125 mls/hr DAILY@2200 IV 01/02/24 22:00 01/03/24 22:23 125 MLS/HR Enoxaparin Sodium 40 mg DAILY SC 01/02/24 03:45 01/04/24 09:45 40 MG Pantoprazole Sodium 40 mg DAILY IV 01/02/24 10:00 01/04/24 09:44 40 MG Levalbuterol HCl 0.625 mg Q6HR NEB 01/02/24 06:00 01/04/24 13:26 0.625 MG Ipratropium [place] 0.5 mg Q6HWA NEB 01/02/24 06:00 01/04/24 13:26 0.5 MG Cholecalciferol 4,000 unit DAILY PO 01/02/24 10:00 01/04/24 09:43 4,000 UNIT Alprazolam 0.25 mg Q8HP PRN PO 01/02/24 05:00 Paroxetine HCl 40 mg DAILY PO 01/02/24 10:00 01/04/24 09:45 40 MG Docusate Sodium 100 mg BIDPRN PRN PO 01/02/24 05:00 Diagnostic Test (Pha) 1 strip Q6HR 01/02/24 06:00 01/04/24 12:17 1 STRIP Insulin Human Regular Q6HR SC 01/02/24 06:00 01/04/24 12:16 2 UNITS Dextrose 50 ml UD PRN IV 01/02/24 05:00 Carisoprodol 350 mg TID PO 01/02/24 06:00 Patient Own Medication 1 cap DAILY PO 01/02/24 10:00 Hydrocortisone Sodium Succinate 100 mg Q12HR IV 01/02/24 10:00 01/04/24 09:44 100 MG Cefepime HCl 50 ml @ 12.5 mls/hr Q8HR IV 01/02/24 14:00 01/04/24 14:20 12.5 MLS/HR Vancomycin HCl 0 ml @ 0 mls/hr UD IV 01/02/24 09:15 Methadone HCl 80 mg DAILY PO 01/03/24 10:00 Cancel Methadone HCl 80 mg DAILY PO 01/02/24 12:15 01/04/24 09:44 80 MG Methadone HCl 80 mg DAILY PO 01/02/24 12:15 UNV Vancomycin HCl 250 ml @ 200 mls/hr Q8H IV 01/04/24 17:00 Examination Gen - no pallor, no icterus, no cyanosis, no clubbing, no LAD, no edema . Skin - Patients skin is warm and dry. HEENT - normocephalic, atraumatic, dry mucous membranes. Neck - full ROM, no LAD, no JVD Pulmonary - decreased breath sounds bilaterally with bilateral fine inspiratory crackles more on the left side. no wheezing. cardiovascular - normal S1,S2 heard. no murmurs heard. peripheral pulses normal radial 2+, pedal 2+. capillary refill normal <2 secs. GI - soft abdomen without tenderness to palpation . no hepatospleenomegaly. Bowel sounds +. Neurological - Patient is A/O X 3. Bilateral upper extremity strength 5/5, bilateral lower extremity strength 4/5, laboratory and microbiology Laboratory Tests 01/04/24 03:46 Test 01/04/24 03:46 Range/Units Serum Glucose 126 H 74-106 mg/dL Microbiology Date/Time Source Procedure Growth Status 01/02/24 16:56 Sputum Gram Stain - Final Resulted 01/02/24 16:56 Sputum Respiratory Culture - Preliminary Resulted 01/02/24 12:53 Blood Blood Culture - Preliminary NO GROWTH AFTER 48 HOURS OF INCUBATION. Resulted Problem List/Assessment/Plan Problem List/Assessment/Plan # sepsis likely due to pneumonia # respiratory acidosis with metabolic alkalosis- resolved # community-acquired pneumonia likely due to ?Gram +/- ? Atypical bacterial infection # history of COVID in 2020 , lung fibrosis worse on the left - chest x-ray shows bilateral opacities - chest CT shows marked predominantly ground-glass airspace opacities in the left lung diffusely and right perihilar lung area. Supraclavicular, mediastinal, left hilar adenopathy likely reactive - WBC count elevated with left shift - COVID and influenza type a and B negative - QuantiFERON TB gold test pending - patient complained of hemoptysis - initial ABG 01/01/2024 at 1434hrs showed pH 7.266, pCO2 52.9, bicarb 23.5 - repeat ABG showed increasing pCO2 - patient initially on non-rebreather mask then was put on BiPap -Now patient is on High flow O2, Flow rate is 80 and FIO2: 100 - patient on vancomycin as per pharmacy, cefepime 1 g q.8 hour , azithromycin 500 g daily IV # Acute hypoxic respiratory failure likely due to pneumonia possible gram+/- bacterial infection - Patient was on BiPAP. Patient's ABG normalized, discontinue BiPAP for now and continue BiPAP at nighttime. - levalbuterol and ipratropium nebulizer q.6 hours # pulmonary embolism ruled out - Wells score 2.5 - D-dimer elevated - CT angio chest revealed no evidence of pulmonary embolism - extremity venous study showed no evidence of femoropopliteal vein thrombosis # obstructive sleep apnea with BiPAP at night at home # echocardiogram shows left ventricular ejection fraction 55%, grade 1 diastolic dysfunction with mild to moderately increased right ventricular pressure # transaminitis with the elevated ALP # H/o episodes of rectal bleed - CT shows diffuse severe hepatic steatosis - GGT pending - patient does not complain of nausea,vomiting, diarrhoea,hematochezia,abdominal pain. # uncontrolled type 2 diabetes mellitus - HbA1c 7.7% - patient on mild insulin sliding scale - goal blood glucose 140-180 mg/dl # chronic back pain - At home the patient was on methadone 93 mg daily - Patient continued on methadone 80 mg daily # hypertriglyceridemia - fenofibrate daily Critical Care time spent 34 minutes including patient care, chart review and updating family, excluding procedure. Plan discussed with Dr. Payan Plan discussed with: Patient My Orders My Orders Orders - STEFANI DESAI RESIDENT Procedure Category Date Status Time Abg W/ Co-Ox RT 01/04/24 Logged 04:00 Complete Blood Count LAB 01/05/24 Verified 04:00 Comprehensive LAB 01/05/24 Verified Metabolic Panel 04:00 Date of Service: Jan 04, 2024 Billing Provider: ANMOL PAYAN MD Common Visit Codes: [id number] CARE 30-74 MIN STEFANI DESAI RESIDENT Jan 04, 2024 15:58 ANMOL PAYAN MD Jan 05, 2024 13:54
[2024-01-04] MEDS ORDERED: VANCOMYCIN 1.25GM/250ML 250 ML IV SCH (16:00)
[2024-01-05] VITALS (7 sets, daily range): BP systolic 116–140; BP diastolic 67–84; PULSE 65–76; RESP 12–18; O2SAT 92–94
[2024-01-05 04:48] LABS: Hematocrit 44.8 % (41.0-53.0); Hemoglobin 15.2 g/dL (13.5-17.5); Mean Corpuscular Hemoglobin 32.6 pg (28.0-32.0); Mean Corpuscular Volume 95.7 fL (80.0-100.0); Platelet Count (auto) 183 10^3/uL (140-450); Red Blood Cells 4.68 10^6/uL (4.5-5.90); Red Cell Distribution Width 13.4 % (11.8-14.3)
[2024-01-05 04:50] LABS: Basophils % (manual) 0 (0.0-2.0); Blast Cells 0; Eosinophils % (manual) 0 (0-7); Myelocytes % 0; Promyelocytes % 0; Reactive Lymphocytes 0
[2024-01-05 05:03] LABS: Alanine Aminotransferase 24 U/L (7-40); Albumin 3.4 g/dL (3.2-4.8); Alkaline Phosphatase 102 U/L (46-116); Anion Gap 7 (5-15); Blood Urea Nitrogen 20 mg/dL (9-23); Calcium 9.4 mg/dL (8.7-10.4); Carbon Dioxide 30 mmol/L (20-31); Chloride 101 mmol/L (98-107); Potassium 3.9 mmol/L (3.5-5.1); Sodium 138 mmol/L (136-145)
[2024-01-05 05:04] LABS: Bilirubin, Total 1.1 mg/dL (0.2-1.0); Total Protein 7.1 g/dL (5.7-8.2)
[2024-01-05 05:06] LABS: Aspartate Aminotransferase 59 U/L (13-40); Glucose 109 mg/dL (74-106)
[2024-01-05 05:30] LABS: Band Neutrophils % (manual) 4; Lymphocytes % (manual) 12 (10.0-50.0); Metamyelocytes % 1; Monocytes % (manual) 5 (0-12); Platelet Estimate Adequate
--- NOTE | 2024-01-05 08:44 | DVHPNRES ---
Progress Note Date Seen: Jan 05, 2024 Resident Creating Document: STEFANI DESAI RESIDENT Medical Necessity Reason Pt with a Central, PICC or Fol: No Subjective Review of Systems Patient is a 49-year-old male with a past medical history of type 2 diabetes mellitus, lung fibrosis following COVID pneumonia in 2020 currently on home oxygen 3 liters/minute, fatty liver, obstructive sleep apnea on BiPAP, chronic back pain on methadone daily was brought to the ED with a worsening shortness of breath and altered mental status for 1 day prior to admission. Patient's partner reported that for 4-5 days prior to admission patient has started to have cough and night prior to admission it worsen when he had cough with expectoration with bright red blood, worsening shortness of breath. In the morning patient went to the methadone clinic to get his daily to and oncoming whom he was altered and sleepy and her difficulty breathing following which he was brought to the ED for further evaluation. On arrival to the ED patient's SpO2 was 79% following which he was put on a non-rebreather mask and eventually as he was desaturating he was put on facial BiPAP mask. Patient's blood pressure was stable on admission and remained stable throughout. Patient's initial ABGs showed respiratory acidosis with pCO2 52.9. CBC showed elevated WBC count with left shift. BMP showed normal electrolytes and GFR and creatinine within normal limits. Elevated AST ALT and ALP, elevated triglycerides. Showed normal LVEF at 55% with grade 1 diastolic dysfunction, no valvular abnormalities seen. Chest x-ray showed diffuse opacities more on the left than the right and pulmonary vascular congestion CT angiography showed no evidence of pulmonary embolism, marked predominantly ground-glass opacities in the left lung, supraclavicular, mediastinal and left hilar adenopathy. Past medical history: As per HPI Past surgical history: None Social history: Lives with girlfriend and denies smoking, alcohol, drug use. Home medications: Ozempic, fenofibrate, methadone 93mg daily, carisoprodol Review of systems Patient seen and examined at the bedside. Patient is alert and oriented x4, lethargic and lying in bed comfortably. Patient was on BiPAP. Patient's ABG normalized, Continue High flow O2 for now and continue BiPAP at nighttime. Objective vital signs Vital Sign Date Time Temp Pulse Resp B/P (MAP) Pulse Ox O2 Delivery O2 Flow Rate FiO2 11/28/24 07:20 97.1 75 13 138/82 (100) 94 97.1 01/05/24 07:20 Hi-Flow NC 12 100 100 Total Intake and Output 01/04/24 01/04/24 01/05/24 15:00 23:00 07:00 Intake Total 300 ml 212.5 ml 437.5 ml Output Total 575 ml 350 ml Balance -275 ml -137.5 ml 437.5 ml medications Current Medications Medications Dose Ordered Sig/Joseph Route Start Time Stop Time Status Last Admin Dose Admin Ondansetron HCl 4 mg Q4HP PRN IV 01/01/24 21:00 Acetaminophen 650 mg Q6HP PRN PO 01/01/24 21:00 Nitroglycerin 0.4 mg Q5MINP PRN SL 01/01/24 21:00 Morphine Sulfate 2 mg Q30M PRN IV 01/01/24 21:00 Azithromycin 250 ml @ 125 mls/hr DAILY@2200 IV 01/02/24 22:00 01/04/24 21:35 125 MLS/HR Enoxaparin Sodium 40 mg DAILY SC 01/02/24 03:45 01/04/24 09:45 40 MG Pantoprazole Sodium 40 mg DAILY IV 01/02/24 10:00 01/04/24 09:44 40 MG Levalbuterol HCl 0.625 mg Q6HR NEB 01/02/24 06:00 01/05/24 07:00 0.625 MG Ipratropium [place] 0.5 mg Q6HWA NEB 01/02/24 06:00 01/04/24 23:55 0.5 MG Cholecalciferol 4,000 unit DAILY PO 01/02/24 10:00 01/04/24 09:43 4,000 UNIT Alprazolam 0.25 mg Q8HP PRN PO 01/02/24 05:00 Paroxetine HCl 40 mg DAILY PO 01/02/24 10:00 01/04/24 09:45 40 MG Docusate Sodium 100 mg BIDPRN PRN PO 01/02/24 05:00 Diagnostic Test (Pha) 1 strip Q6HR 01/02/24 06:00 01/05/24 05:48 1 STRIP Insulin Human Regular Q6HR SC 01/02/24 06:00 01/05/24 05:50 2 UNITS Dextrose 50 ml UD PRN IV 01/02/24 05:00 Carisoprodol 350 mg TID PO 01/02/24 06:00 Patient Own Medication 1 cap DAILY PO 01/02/24 10:00 Hydrocortisone Sodium Succinate 100 mg Q12HR IV 01/02/24 10:00 01/04/24 21:35 100 MG Cefepime HCl 50 ml @ 12.5 mls/hr Q8HR IV 01/02/24 14:00 01/05/24 05:48 12.5 MLS/HR Vancomycin HCl 0 ml @ 0 mls/hr UD IV 01/02/24 09:15 Methadone HCl 80 mg DAILY PO 01/03/24 10:00 Cancel Methadone HCl 80 mg DAILY PO 01/02/24 12:15 01/04/24 09:44 80 MG Methadone HCl 80 mg DAILY PO 01/02/24 12:15 UNV Vancomycin HCl 250 ml @ 200 mls/hr Q8H IV 01/04/24 17:00 01/05/24 01:00 200 MLS/HR Examination Gen - no pallor, no icterus, no cyanosis, no clubbing, no LAD, no edema . Skin - Patients skin is warm and dry. HEENT - normocephalic, atraumatic, dry mucous membranes. Neck - full ROM, no LAD, no JVD Pulmonary - decreased breath sounds bilaterally with bilateral fine inspiratory crackles more on the left side. no wheezing. cardiovascular - normal S1,S2 heard. no murmurs heard. peripheral pulses normal radial 2+, pedal 2+. capillary refill normal <2 secs. GI - soft abdomen without tenderness to palpation . no hepatospleenomegaly. Bowel sounds +. Neurological - Patient is A/O X 3. Bilateral upper extremity strength 5/5, bilateral lower extremity strength 4/5, laboratory and microbiology Laboratory Tests 01/05/24 04:00 Test 01/05/24 04:00 Range/Units Serum Glucose 109 H 74-106 mg/dL Microbiology Date/Time Source Procedure Growth Status 01/02/24 16:56 Sputum Gram Stain - Final Resulted 01/02/24 16:56 Sputum Respiratory Culture - Preliminary Resulted 01/02/24 12:53 Blood Blood Culture - Preliminary NO GROWTH AFTER 48 HOURS OF INCUBATION. Resulted Problem List/Assessment/Plan Problem List/Assessment/Plan # sepsis likely due to pneumonia # respiratory acidosis with metabolic alkalosis- resolved # community-acquired pneumonia likely due to ?Gram +/- ? Atypical bacterial infection # history of COVID in 2020 , lung fibrosis worse on the left - chest x-ray shows bilateral opacities - chest CT shows marked predominantly ground-glass airspace opacities in the left lung diffusely and right perihilar lung area. Supraclavicular, mediastinal, left hilar adenopathy likely reactive - WBC count elevated with left shift - COVID and influenza type a and B negative - QuantiFERON TB gold test pending - patient complained of hemoptysis - initial ABG 01/01/2024 at 1434hrs showed pH 7.266, pCO2 52.9, bicarb 23.5 - repeat ABG showed increasing pCO2 - patient initially on non-rebreather mask then was put on BiPap -Now patient is on High flow O2, Flow rate is 12 and FIO2: 100 - patient on vancomycin as per pharmacy, cefepime 1 g q.8 hour , azithromycin 500 g daily IV # Acute hypoxic respiratory failure likely due to pneumonia possible gram+/- bacterial infection - Patient was on BiPAP. Patient's ABG normalized, discontinue BiPAP for now and continue BiPAP at nighttime. - levalbuterol and ipratropium nebulizer q.6 hours # pulmonary embolism ruled out - Wells score 2.5 - D-dimer elevated - CT angio chest revealed no evidence of pulmonary embolism - extremity venous study showed no evidence of femoropopliteal vein thrombosis # obstructive sleep apnea with BiPAP at night at home # echocardiogram shows left ventricular ejection fraction 55%, grade 1 diastolic dysfunction with mild to moderately increased right ventricular pressure # transaminitis with the elevated ALP # H/o episodes of rectal bleed - CT shows diffuse severe hepatic steatosis - GGT pending - patient does not complain of nausea,vomiting, diarrhoea,hematochezia,abdominal pain. # uncontrolled type 2 diabetes mellitus - HbA1c 7.7% - patient on mild insulin sliding scale - goal blood glucose 140-180 mg/dl # chronic back pain - At home the patient was on methadone 93 mg daily - Patient continued on methadone 80 mg daily # hypertriglyceridemia - fenofibrate daily Critical Care time spent 36 minutes including patient care, chart review and updating family, excluding procedure. Plan discussed with Dr. Payan Plan discussed with: Patient Date of Service: Jan 05, 2024 Billing Provider: ANMOL PAYAN MD Common Visit Codes: [id number] CARE 30-74 MIN STEFANI DESAI RESIDENT Jan 05, 2024 08:44 ANMOL PAYAN MD Jan 06, 2024 13:08
[2024-01-05 12:06] LABS: QuantiFERON-TB Gold Plus Negative (Negative)
[2024-01-06] VITALS (8 sets, daily range): BP systolic 136–154; BP diastolic 72–94; PULSE 68–78; RESP 16–29; O2SAT 93–96
[2024-01-06] MEDS ORDERED: VANCOMYCIN 1.5GM/300ML 300 ML IV SCH (01:00)
[2024-01-06] MEDS: AZITHROMYCIN 500MG/ 250ML 250 ML IV SCH (02:12)
[2024-01-06] MEDS: VANCOMYCIN 1.5GM/300ML 300 ML IV SCH (04:15)
[2024-01-06 04:16] LABS: Hematocrit 45.7 % (41.0-53.0); Hemoglobin 15.5 g/dL (13.5-17.5); Mean Corpuscular Hemoglobin 32.4 pg (28.0-32.0); Mean Corpuscular Hgb Conc. 33.9 g/dL (32.0-36.0); Mean Corpuscular Volume 95.3 fL (80.0-100.0); Platelet Count (auto) 225 10^3/uL (140-450); Red Cell Distribution Width 13.1 % (11.8-14.3); White Blood Cell 12.9 10^3/uL (4.4-10.8)
[2024-01-06 04:29] LABS: Alanine Aminotransferase 27 U/L (7-40); Albumin 3.4 g/dL (3.2-4.8); Alkaline Phosphatase 102 U/L (46-116); Anion Gap 7 (5-15); BUN/Creatinine Ratio 25.7 (10.0-20.0); Blood Urea Nitrogen 19 mg/dL (9-23); Calcium 9.4 mg/dL (8.7-10.4); Chloride 100 mmol/L (98-107); Sodium 138 mmol/L (136-145)
[2024-01-06 04:30] LABS: Aspartate Aminotransferase 55 U/L (13-40); Bilirubin, Total 1.1 mg/dL (0.2-1.0); Carbon Dioxide 31 mmol/L (20-31); Glucose 143 mg/dL (74-106); Total Protein 7.4 g/dL (5.7-8.2)
[2024-01-06 04:35] LABS: Basophils % (manual) 0 (0.0-2.0); Blast Cells 0; Eosinophils % (manual) 0 (0-7); Metamyelocytes % 0; Myelocytes % 0; Promyelocytes % 0; Reactive Lymphocytes 0
[2024-01-06 04:54] LABS: Band Neutrophils % (manual) 9; Lymphocytes % (manual) 14 (10.0-50.0); Monocytes % (manual) 5 (0-12); Platelet Estimate Adequate
--- NOTE | 2024-01-06 13:14 | DVH ---
CLINICAL INFORMATION: 49 years old, Male; pneumonia TECHNIQUE: Single AP portable chest radiograph was obtained. COMPARISON: XY CHEST PORTABLE on DOS: 01/01/24 FINDINGS: Worsening left lung opacities, most likely infectious or inflammatory in nature, throughout the left lung. Low lung volumes in the right lung with increased density near the right lung apex, may be due to developing consolidation. Additional areas of atelectasis in the right lung base also noted. IMPRESSION: Worsening left lung opacities and new opacities in the right upper lung, likely infectious or inflamm atory in nature, including multifocal pneumonia. Correlate with clinical findings.
[2024-01-06] MEDS: DOCUSATE SOD 100 MG CAP PO PRN (14:10)
--- NOTE | 2024-01-06 16:11 | DVHPNRES ---
Progress Note Date Seen: Jan 06, 2024 Resident Creating Document: STEFANI DESAI RESIDENT Medical Necessity Reason Pt with a Central, PICC or Fol: No Subjective Review of Systems Patient is a 49-year-old male with a past medical history of type 2 diabetes mellitus, lung fibrosis following COVID pneumonia in 2020 currently on home oxygen 3 liters/minute, fatty liver, obstructive sleep apnea on BiPAP, chronic back pain on methadone daily was brought to the ED with a worsening shortness of breath and altered mental status for 1 day prior to admission. Patient's partner reported that for 4-5 days prior to admission patient has started to have cough and night prior to admission it worsen when he had cough with expectoration with bright red blood, worsening shortness of breath. In the morning patient went to the methadone clinic to get his daily to and oncoming whom he was altered and sleepy and her difficulty breathing following which he was brought to the ED for further evaluation. On arrival to the ED patient's SpO2 was 79% following which he was put on a non-rebreather mask and eventually as he was desaturating he was put on facial BiPAP mask. Patient's blood pressure was stable on admission and remained stable throughout. Patient's initial ABGs showed respiratory acidosis with pCO2 52.9. CBC showed elevated WBC count with left shift. BMP showed normal electrolytes and GFR and creatinine within normal limits. Elevated AST ALT and ALP, elevated triglycerides. Showed normal LVEF at 55% with grade 1 diastolic dysfunction, no valvular abnormalities seen. Chest x-ray showed diffuse opacities more on the left than the right and pulmonary vascular congestion CT angiography showed no evidence of pulmonary embolism, marked predominantly ground-glass opacities in the left lung, supraclavicular, mediastinal and left hilar adenopathy. Home medications: Ozempic, fenofibrate, methadone 93mg daily, carisoprodol Review of systems Patient seen and examined at the bedside. Patient is alert and oriented x4, and lying in bed comfortably. Continue High flow O2 for now and continue BiPAP at nighttime. Objective vital signs Vital Sign Date Time Temp Pulse Resp B/P (MAP) Pulse Ox O2 Delivery O2 Flow Rate FiO2 01/06/24 14:00 77 18 132/67 (88) 93 01/06/24 12:10 70.0 100 01/06/24 08:00 97.7 97.7 01/06/24 08:00 Hi-Flow NC Total Intake and Output 01/05/24 01/05/24 01/06/24 15:00 23:00 07:00 Intake Total 287.5 ml 300.0 ml 587.5 ml Output Total 600 ml 875 ml Balance 287.5 ml -300.0 ml -287.5 ml medications Current Medications Medications Dose Ordered Sig/Joseph Route Start Time Stop Time Status Last Admin Dose Admin Ondansetron HCl 4 mg Q4HP PRN IV 01/01/24 21:00 Acetaminophen 650 mg Q6HP PRN PO 01/01/24 21:00 Nitroglycerin 0.4 mg Q5MINP PRN SL 01/01/24 21:00 Morphine Sulfate 2 mg Q30M PRN IV 01/01/24 21:00 Enoxaparin Sodium 40 mg DAILY SC 01/02/24 03:45 01/06/24 09:38 40 MG Pantoprazole Sodium 40 mg DAILY IV 01/02/24 10:00 01/06/24 09:39 40 MG Levalbuterol HCl 0.625 mg Q6HR NEB 01/02/24 06:00 01/06/24 12:10 0.625 MG Ipratropium [place] 0.5 mg Q6HWA NEB 01/02/24 06:00 01/06/24 12:10 0.5 MG Cholecalciferol 4,000 unit DAILY PO 01/02/24 10:00 01/06/24 09:39 4,000 UNIT Alprazolam 0.25 mg Q8HP PRN PO 01/02/24 05:00 Paroxetine HCl 40 mg DAILY PO 01/02/24 10:00 01/06/24 09:38 40 MG Docusate Sodium 100 mg BIDPRN PRN PO 01/02/24 05:00 01/06/24 14:10 100 MG Diagnostic Test (Pha) 1 strip Q6HR 01/02/24 06:00 01/06/24 12:00 1 STRIP Insulin Human Regular Q6HR SC 01/02/24 06:00 01/05/24 05:50 2 UNITS Dextrose 50 ml UD PRN IV 01/02/24 05:00 Carisoprodol 350 mg TID PO 01/02/24 06:00 01/06/24 14:09 350 MG Patient Own Medication 1 cap DAILY PO 01/02/24 10:00 Hydrocortisone Sodium Succinate 100 mg Q12HR IV 01/02/24 10:00 01/06/24 09:39 100 MG Cefepime HCl 50 ml @ 12.5 mls/hr Q8HR IV 01/02/24 14:00 01/06/24 14:10 12.5 MLS/HR Vancomycin HCl 0 ml @ 0 mls/hr UD IV 01/02/24 09:15 Methadone HCl 80 mg DAILY PO 01/03/24 10:00 Cancel Methadone HCl 80 mg DAILY PO 01/02/24 12:15 01/06/24 09:39 80 MG Methadone HCl 80 mg DAILY PO 01/02/24 12:15 UNV Azithromycin 250 ml @ 125 mls/hr DAILY@0200 IV 01/06/24 02:00 01/06/24 02:12 125 MLS/HR Vancomycin HCl 300 ml @ 200 mls/hr Q8H IV 01/06/24 04:00 01/06/24 13:20 200 MLS/HR Examination Gen - no pallor, no icterus, no cyanosis, no clubbing, no LAD, no edema . Skin - Patients skin is warm and dry. HEENT - normocephalic, atraumatic, dry mucous membranes. Neck - full ROM, no LAD, no JVD Pulmonary - decreased breath sounds bilaterally with bilateral fine inspiratory crackles more on the left side. no wheezing. cardiovascular - normal S1,S2 heard. no murmurs heard. peripheral pulses normal radial 2+, pedal 2+. capillary refill normal <2 secs. GI - soft abdomen without tenderness to palpation . no hepatospleenomegaly. Bowel sounds +. Neurological - Patient is A/O X 3. Bilateral upper extremity strength 5/5, bilateral lower extremity strength 4/5, laboratory and microbiology Laboratory Tests 01/06/24 04:06 Test 01/06/24 04:06 Range/Units Serum Glucose 143 H 74-106 mg/dL Microbiology Date/Time Source Procedure Growth Status 01/04/24 15:13 Nose MRSA Screen - Final Complete 01/02/24 16:56 Sputum Gram Stain - Final Complete 01/02/24 16:56 Respiratory Culture - Final Staphylococcus aureus Presumptive Nitza albicans Complete 01/02/24 12:53 Blood Blood Culture - Preliminary NO GROWTH AFTER 72 HOURS OF INCUBATION. Resulted Problem List/Assessment/Plan Problem List/Assessment/Plan # sepsis likely due to pneumonia # respiratory acidosis with metabolic alkalosis- resolved # community-acquired pneumonia likely due to ?Gram +/- ? Atypical bacterial infection # history of COVID in 2020 , lung fibrosis worse on the left - chest x-ray shows bilateral opacities - chest CT shows marked predominantly ground-glass airspace opacities in the left lung diffusely and right perihilar lung area. Supraclavicular, mediastinal, left hilar adenopathy likely reactive - WBC count elevated with left shift - COVID and influenza type a and B negative - QuantiFERON TB gold test pending - patient complained of hemoptysis - initial ABG 01/01/2024 at 1434hrs showed pH 7.266, pCO2 52.9, bicarb 23.5 - patient initially on non-rebreather mask then was put on BiPap -Now patient is on High flow O2, Flow rate is 70 and FIO2: 100 - patient on vancomycin as per pharmacy, cefepime 1 g q.8 hour , azithromycin 500 g daily IV # Acute hypoxic respiratory failure likely due to pneumonia possible gram+/- bacterial infection - Patient was on BiPAP. Patient's ABG normalized, discontinue BiPAP for now and continue BiPAP at nighttime. - levalbuterol and ipratropium nebulizer q.6 hours # pulmonary embolism ruled out - Wells score 2.5 - D-dimer elevated - CT angio chest revealed no evidence of pulmonary embolism - extremity venous study showed no evidence of femoropopliteal vein thrombosis # obstructive sleep apnea with BiPAP at night at home # echocardiogram shows left ventricular ejection fraction 55%, grade 1 diastolic dysfunction with mild to moderately increased right ventricular pressure # transaminitis with the elevated ALP # H/o episodes of rectal bleed - CT shows diffuse severe hepatic steatosis - GGT pending - patient does not complain of nausea,vomiting, diarrhoea,hematochezia,abdominal pain. # uncontrolled type 2 diabetes mellitus - HbA1c 7.7% - patient on mild insulin sliding scale - goal blood glucose 140-180 mg/dl # chronic back pain - At home the patient was on methadone 93 mg daily - Patient continued on methadone 80 mg daily # hypertriglyceridemia - fenofibrate daily Ordered Repeat CXR today: Showing: Worsening left lung opacities and new opacities in the right upper lung, likely infectious or inflammatory in nature, including multifocal pneumonia. Continue current ABX ( Cefepime and Vancomycin) Critical Care time spent 32 minutes including patient care, chart review and updating family, excluding procedure. Plan discussed with: Patient My Orders My Orders Orders - STEFANI DESAI Procedure Category Date Status Time Complete Blood Count LAB 01/07/24 Verified 04:00 Comprehensive LAB 01/07/24 Verified Metabolic Panel 04:00 Chest Xray 1 View XY 01/06/24 Resulted 12:39 Date of Service: Jan 06, 2024 Billing Provider: ANMOL PAYAN MD Common Visit Codes: [id number] CARE 30-74 MIN STEFANI DESAI Jan 06, 2024 16:11 ANMOL PAYAN MD Jan 13, 2024 13:07
[2024-01-06] MEDS: VANCOMYCIN 1GM/250ML KIT 400 ML IV ONE (20:43)
[2024-01-07] VITALS (9 sets, daily range): BP systolic 121–153; BP diastolic 69–80; PULSE 69–84; RESP 14–28; TEMP 98.7; O2SAT 92–99
[2024-01-07] MEDS ORDERED: DEXTROSE (50%) 50ML SYRG IV PRN (04:00)
[2024-01-07] MEDS ORDERED: MORPHINE SULFATE INJ 2 MG/ml SYRG IV PRN (04:00)
[2024-01-07] MEDS ORDERED: VANCOMYCIN PER PHARMACY 0 MG IV SCH (04:00)
[2024-01-07] MEDS ORDERED: ENOXAPARIN SOD 40 MG/0.4 ML SYRINGE SC SCH (04:00)
[2024-01-07] MEDS ORDERED: NITROGLYCERIN 0.4 MG SL TAB SL PRN (04:00)
[2024-01-07] MEDS ORDERED: ONDANSETRON HCL 4 MG/2 ML VIAL IV PRN (04:00)
[2024-01-07] MEDS: VANCOMYCIN 1GM/250ML KIT 400 ML IV ONE (04:19)
[2024-01-07] MEDS: VANCOMYCIN 1.5GM/300ML 300 ML IV SCH (04:19)
[2024-01-07 04:53] LABS: Hematocrit 44.8 % (41.0-53.0); Hemoglobin 15.5 g/dL (13.5-17.5); Mean Corpuscular Hemoglobin 32.7 pg (28.0-32.0); Mean Corpuscular Hgb Conc. 34.5 g/dL (32.0-36.0); Mean Corpuscular Volume 94.8 fL (80.0-100.0); Platelet Count (auto) 268 10^3/uL (140-450); Red Blood Cells 4.73 10^6/uL (4.5-5.90); Red Cell Distribution Width 13.5 % (11.8-14.3)
[2024-01-07 05:04] LABS: Basophils % (manual) 0 (0.0-2.0); Blast Cells 0; Eosinophils % (manual) 0 (0-7); Metamyelocytes % 0; Myelocytes % 0; Promyelocytes % 0; Reactive Lymphocytes 0
[2024-01-07 05:12] LABS: Alanine Aminotransferase 24 U/L (7-40); Albumin 3.4 g/dL (3.2-4.8); Alkaline Phosphatase 92 U/L (46-116); Anion Gap 9 (5-15); BUN/Creatinine Ratio 30.2 (10.0-20.0); Blood Urea Nitrogen 19 mg/dL (9-23); Calcium 9.2 mg/dL (8.7-10.4); Carbon Dioxide 29 mmol/L (20-31); Chloride 101 mmol/L (98-107); Potassium 4.1 mmol/L (3.5-5.1); Sodium 139 mmol/L (136-145)
[2024-01-07 05:13] LABS: Aspartate Aminotransferase 46 U/L (13-40); Bilirubin, Total 1.1 mg/dL (0.2-1.0); Glucose 113 mg/dL (74-106); Total Protein 7.2 g/dL (5.7-8.2)
[2024-01-07] MEDS: ACCU-CHEK COMFORT CURVE STRIP VI SCH (05:23)
[2024-01-07] MEDS: InsuLIN REG 1unit/0.01ml Soln (100units/ml) SC SCH (05:37)
[2024-01-07] MEDS: CARISOPRODOL 350 MG TAB PO SCH (05:54)
[2024-01-07] MEDS: CARISOPRODOL 350 MG TAB ONE (05:54)
[2024-01-07] MEDS: CEFEPIME 1GM/ 50ML 50 ML IV ONE (06:02)
[2024-01-07] MEDS: CEFEPIME 1GM/ 50ML 50 ML IV SCH (06:03)
[2024-01-07] MEDS: IPRATROPIUM BROM 0.5 MG/2.5ML INH SOL ONE (06:23)
[2024-01-07] MEDS: LEVALBUTEROL HCL 1.25 MG/3 ML NEB ONE (06:23)
[2024-01-07] MEDS: LEVALBUTEROL HCL 1.25 MG/3 ML NEB NEB SCH (06:24)
[2024-01-07] MEDS: IPRATROPIUM BROM 0.5 MG/2.5ML INH SOL NEB SCH (06:24)
[2024-01-07 06:55] LABS: Band Neutrophils % (manual) 3; Lymphocytes % (manual) 13 (10.0-50.0); Monocytes % (manual) 7 (0-12); Platelet Estimate Adequate
[2024-01-07] MEDS: ALPRAZolam 0.25 MG TAB ONE (10:26)
[2024-01-07] MEDS: ALPRAZolam 0.25 MG TAB PO PRN (10:27)
[2024-01-07] MEDS: HYDROCORTISONE SOD SUCC 100 MG/2ML INJ VIAL IV SCH (11:04)
[2024-01-07] MEDS: PANTOPRAZOLE 40 MG/10 ML VIAL INJ IV SCH (11:04)
[2024-01-07] MEDS: ENOXAPARIN SOD 40 MG/0.4 ML SYRINGE SC SCH (11:04)
[2024-01-07] MEDS: PARoxetine 20 MG TAB PO SCH (11:05)
[2024-01-07] MEDS: CHOLECALCIFEROL (VITD3) 1,000UNIT=25mCg TAB PO SCH (11:05)
[2024-01-07] MEDS: METHADONE HCL 10 MG TAB PO SCH (12:07)
--- NOTE | 2024-01-07 14:00 | DVHPN2 ---
Subjective The patient is seen and examined at bedside. Complain of shortness a breath Reviewed: Care Plan, H&P, Labs, Medications, Previous Orders, Radiology Changes from previous H/P or p: No Changes Eyes: No Pain, No Vision change, No Conjunctivae inflammation, No Eyelid inflammation, No Other, No Redness ENT: No Ear pain, No Ear discharge, No Nose pain, No Nose discharge, No Nose congestion, No Mouth pain, No Mouth swelling, No Throat pain, No Throat swelling, No Other Cardiovascular: No Chest Pain, No Palpitations, No Orthopnea, No Paroxysmal Noc. Dyspnea, No Edema, No Lt Headedness, No Other Respiratory: Cough, Shortness of breath, SOB with excertion, Hemoptysis, Sputum , Other (Brown) Gastrointestinal: No Nausea, No Vomiting, No Abdominal Pain, No Diarrhea, No Constipation, No Melena, No Hematochezia, No Other Genitourinary: No Dysuria, No Frequency, No Incontinence, No Hematuria, No Retention, No Other Musculoskeletal: No other, No neck pain, No shoulder pain, No arm pain, No back pain, No hand pain, No leg pain, No foot pain Skin: No Rash, No Lesions, No Jaundice, No Bruising, No Other Objective Vitals Vital Signs Date Time Temp Pulse Resp B/P (MAP) Pulse Ox O2 Delivery O2 Flow Rate FiO2 01/07/24 13:32 71 14 98 60.0 80 01/07/24 09:00 151/86 (107) 01/07/24 08:00 98.2 98.2 01/07/24 07:30 Hi-Flow Heated NC+ Intake/Output Intake and Output 01/07/24 07:00 Intake Total 1312.5 ml Output Total 600 ml Balance 712.5 ml IV Total 1312.5 ml Output Urine Total 600 ml General Appearance: Alert, Oriented X3, Cooperative, mild distress HEENT: Atraumatic, PERRLA, EOMI, Mucous membr. moist/pink Neck: Supple Lungs: Clear to auscultation, Normal air movement Cardiovascular: Regular rate, Normal S1, Normal S2, No murmurs, Gallops, Rubs Abdomen: Normal bowel sounds, Soft, No tenderness Neuro: Cranial nerves 3-12 NL Psych/Mental Status: Mental status NL Medications Current Medications Medications Dose Ordered Sig/Joseph Route Start Time Stop Time Status Last Admin Dose Admin Methadone HCl 80 mg DAILY PO 01/03/24 10:00 Cancel Methadone HCl 80 mg DAILY PO 01/02/24 12:15 UNV Acetaminophen 650 mg Q6HP PRN PO 01/07/24 04:00 Alprazolam 0.25 mg Q8HP PRN PO 01/07/24 04:00 01/07/24 10:27 0.25 MG Azithromycin 250 ml @ 125 mls/hr DAILY@0200 IV 01/08/24 02:00 Carisoprodol 350 mg TID PO 01/07/24 06:00 01/07/24 05:54 350 MG Cefepime HCl 50 ml @ 12.5 mls/hr Q8HR IV 01/07/24 06:00 01/07/24 06:03 12.5 MLS/HR Cholecalciferol 4,000 unit DAILY PO 01/07/24 10:00 01/07/24 11:05 4,000 UNIT Dextrose 50 ml UD PRN IV 01/07/24 04:00 Docusate Sodium 100 mg BIDPRN PRN PO 01/07/24 04:00 Enoxaparin Sodium 40 mg DAILY@0900 SC 01/07/24 09:00 01/07/24 11:04 40 MG Diagnostic Test (Pha) 1 strip Q6HR 01/07/24 06:00 01/07/24 12:37 1 STRIP Hydrocortisone Sodium Succinate 100 mg Q12HR IV 01/07/24 10:00 01/07/24 11:04 100 MG Insulin Human Regular Q6HR SC 01/07/24 06:00 Ipratropium [place] 0.5 mg Q6HWA NEB 01/07/24 06:00 01/07/24 13:31 0.5 MG Levalbuterol HCl 0.625 mg Q6HR NEB 01/07/24 06:00 01/07/24 13:31 0.625 MG Methadone HCl 80 mg DAILY@1200 PO 01/07/24 12:00 01/07/24 12:07 80 MG Morphine Sulfate 2 mg Q30M PRN IV 01/07/24 04:00 Nitroglycerin 0.4 mg Q5MINP PRN SL 01/07/24 04:00 Ondansetron HCl 4 mg Q4HP PRN IV 01/07/24 04:00 Pantoprazole Sodium 40 mg DAILY IV 01/07/24 10:00 01/07/24 11:04 40 MG Paroxetine HCl 40 mg DAILY PO 01/07/24 10:00 01/07/24 11:05 40 MG Patient Own Medication 1 cap DAILY PO 01/07/24 10:00 Vancomycin HCl 0 ml @ 0 mls/hr UD IV 01/07/24 04:00 Vancomycin HCl 300 ml @ 200 mls/hr Q8H IV 01/07/24 04:00 01/07/24 13:43 200 MLS/HR Laboratory Results Laboratory Tests 01/07/24 04:31 01/07/24 08:30 Chemistry Test 01/07/24 04:31 Albumin 3.4 g/dL (3.2-4.8) Calcium Level 9.2 mg/dL (8.7-10.4) Total Protein 7.2 g/dL (5.7-8.2) LFT Test 01/07/24 04:31 Alanine Aminotransferase (ALT) 24 U/L (7-40) Alkaline Phosphatase 92 U/L (46-116) Aspartate Amino Transferase (AST) 46 U/L (13-40) H Total Bilirubin 1.1 mg/dL (0.2-1.0) H Urinalysis Test 01/02/24 08:49 Urine Color Yellow (Yellow) Urine Clarity Clear (Clear) Urine pH 6.0 (5.0-9.0) Urine Specific [place] 1.038 (1.001-1.035) Urine Protein 1+ (Negative) H Urine Ketones 1+ (Negative) H Urine Blood 1+ /uL (Negative) H Urine Nitrite Negative (Negative) Urine Bilirubin Negative (Negative) Urine Urobilinogen Normal mg/dL (Negative) Urine Leukocyte Esterase Negative /uL (Negative) Urine RBC 1 /hpf (0 - 3) Urine WBC 4 /hpf (0 - 3) Urine Squamous Epithelial Cells None seen /hpf (<5) Urine Bacteria None seen /hpf (None Seen) Urine Glucose 4+ mg/dL (Normal) H Microbiology Microbiology Date/Time Source Procedure Growth Status 01/04/24 15:13 Nose MRSA Screen - Final Complete 01/02/24 16:56 Sputum Gram Stain - Final Complete 01/02/24 16:56 Respiratory Culture - Final Staphylococcus aureus Presumptive Nitza albicans Complete 01/02/24 12:53 Blood Blood Culture - Final NO GROWTH AFTER 5 DAYS OF INCUBATION. Complete Labs and/or images reviewed: Labs reviewed by me Assessment/Plan Assessment/Plan # sepsis likely due to pneumonia # respiratory acidosis with metabolic alkalosis- resolved # community-acquired pneumonia likely due to ?Gram +/- ? Atypical bacterial infection # history of COVID in 2020 , lung fibrosis worse on the left - chest x-ray shows bilateral opacities - chest CT shows marked predominantly ground-glass airspace opacities in the left lung diffusely and right perihilar lung area. Supraclavicular, mediastinal, left hilar adenopathy likely reactive - WBC count elevated with left shift - COVID and influenza type a and B negative - QuantiFERON TB gold test pending - patient complained of hemoptysis - initial ABG 01/01/2024 at 1434hrs showed pH 7.266, pCO2 52.9, bicarb 23.5 - repeat ABG showed increasing pCO2 - patient initially on non-rebreather mask then was put on BiPap -Now patient is on High flow O2, Flow rate is 10 and FIO2: 100 - patient on vancomycin as per pharmacy, cefepime 1 g q.8 hour , azithromycin 500 g daily IV # Acute hypoxic respiratory failure likely due to pneumonia possible gram+/- bacterial infection - Patient was on BiPAP. Patient's ABG normalized, discontinue BiPAP for now and continue BiPAP at nighttime. - levalbuterol and ipratropium nebulizer q.6 hours # pulmonary embolism ruled out - Wells score 2.5 - D-dimer elevated - CT angio chest revealed no evidence of pulmonary embolism - extremity venous study showed no evidence of femoropopliteal vein thrombosis # obstructive sleep apnea with BiPAP at night at home # echocardiogram shows left ventricular ejection fraction 55%, grade 1 diastolic dysfunction with mild to moderately increased right ventricular pressure # transaminitis with the elevated ALP # H/o episodes of rectal bleed - CT shows diffuse severe hepatic steatosis - GGT pending - patient does not complain of nausea,vomiting, diarrhoea,hematochezia,abdominal pain. # uncontrolled type 2 diabetes mellitus - HbA1c 7.7% - patient on mild insulin sliding scale - goal blood glucose 140-180 mg/dl # chronic back pain - At home the patient was on methadone 93 mg daily - Patient continued on methadone 80 mg daily # hypertriglyceridemia - fenofibrate daily Continuing current management. We will try to wean off high-flow Plan discussed with: Patient Date of Service: Jan 07, 2024 Billing Provider: JAZMIN NOVA MD Common Visit Codes: [id number] INP/OBS CARE(HIGH) JAZMIN NOVA MD Jan 07, 2024 14:00
[2024-01-08] VITALS (46 sets, daily range): BP systolic 119–153; BP diastolic 64–93; PULSE 67–88; RESP 12–20; TEMP 98–98.8; O2SAT 92–99
[2024-01-08] MEDS: AZITHROMYCIN 500MG/ 250ML 250 ML IV SCH (02:00)
[2024-01-08 05:15] LABS: Hematocrit 42.8 % (41.0-53.0); Hemoglobin 14.8 g/dL (13.5-17.5); Mean Corpuscular Hemoglobin 32.8 pg (28.0-32.0); Mean Corpuscular Hgb Conc. 34.6 g/dL (32.0-36.0); Mean Corpuscular Volume 94.7 fL (80.0-100.0); Platelet Count (auto) 320 10^3/uL (140-450); Red Blood Cells 4.52 10^6/uL (4.5-5.90); White Blood Cell 14.3 10^3/uL (4.4-10.8)
[2024-01-08 05:22] LABS: Basophils % (manual) 0 (0.0-2.0); Blast Cells 0; Chloride 102 mmol/L (98-107); Eosinophils % (manual) 0 (0-7); Metamyelocytes % 0; Myelocytes % 0; Promyelocytes % 0; Reactive Lymphocytes 0; Sodium 139 mmol/L (136-145)
[2024-01-08 05:23] LABS: Anion Gap 6 (5-15); Carbon Dioxide 31 mmol/L (20-31)
[2024-01-08 05:28] LABS: BUN/Creatinine Ratio 23.5 (10.0-20.0); Blood Urea Nitrogen 16 mg/dL (9-23)
[2024-01-08 05:32] LABS: Glucose 106 mg/dL (74-106); Potassium 3.5 mmol/L (3.5-5.1)
[2024-01-08 06:46] LABS: Band Neutrophils % (manual) 1; Lymphocytes % (manual) 11 (10.0-50.0); Monocytes % (manual) 9 (0-12); Platelet Estimate Adequate
--- NOTE | 2024-01-08 08:18 | DVHPN2 ---
Subjective The patient is seen and examined at bedside. Still remained on high-flow. Complain of being very tired today. Reviewed: Care Plan, H&P, Labs, Medications, Previous Orders, Radiology Changes from previous H/P or p: No Changes Eyes: No Pain, No Vision change, No Conjunctivae inflammation, No Eyelid inflammation, No Other, No Redness ENT: No Ear pain, No Ear discharge, No Nose pain, No Nose discharge, No Nose congestion, No Mouth pain, No Mouth swelling, No Throat pain, No Throat swelling, No Other Cardiovascular: No Chest Pain, No Palpitations, No Orthopnea, No Paroxysmal Noc. Dyspnea, No Edema, No Lt Headedness, No Other Respiratory: Cough, Shortness of breath, SOB with excertion, Hemoptysis, Sputum , Other (Brown) Gastrointestinal: No Nausea, No Vomiting, No Abdominal Pain, No Diarrhea, No Constipation, No Melena, No Hematochezia, No Other Genitourinary: No Dysuria, No Frequency, No Incontinence, No Hematuria, No Retention, No Other Musculoskeletal: No other, No neck pain, No shoulder pain, No arm pain, No back pain, No hand pain, No leg pain, No foot pain Skin: No Rash, No Lesions, No Jaundice, No Bruising, No Other Objective Vitals Vital Signs Date Time Temp Pulse Resp B/P (MAP) Pulse Ox O2 Delivery O2 Flow Rate FiO2 01/08/24 06:13 73 16 97 50.0 70 01/08/24 06:00 146/83 (104) 01/08/24 06:00 Hi-Flow Heated NC+ 01/08/24 04:00 98.1 98.1 Intake/Output Intake and Output 01/08/24 07:00 Intake Total 1000 ml Output Total 400 ml Balance 600 ml Intake Oral 300 ml IV Total 700 ml Output Urine Total 400 ml # Voids 1 General Appearance: Alert, Cooperative, mild distress HEENT: Atraumatic, PERRLA, EOMI, Mucous membr. moist/pink Neck: Supple Lungs: Clear to auscultation, Normal air movement Cardiovascular: Regular rate, Normal S1, Normal S2, No murmurs, Gallops, Rubs Abdomen: Normal bowel sounds, Soft, No tenderness Neuro: Cranial nerves 3-12 NL Psych/Mental Status: Mental status NL Medications Current Medications Medications Dose Ordered Sig/Joseph Route Start Time Stop Time Status Last Admin Dose Admin Methadone HCl 80 mg DAILY PO 01/03/24 10:00 Cancel Methadone HCl 80 mg DAILY PO 01/02/24 12:15 UNV Acetaminophen 650 mg Q6HP PRN PO 01/07/24 04:00 Alprazolam 0.25 mg Q8HP PRN PO 01/07/24 04:00 01/07/24 10:27 0.25 MG Azithromycin 250 ml @ 125 mls/hr DAILY@0200 IV 01/08/24 02:00 01/08/24 02:00 125 MLS/HR Carisoprodol 350 mg TID PO 01/07/24 06:00 01/08/24 05:36 350 MG Cefepime HCl 50 ml @ 12.5 mls/hr Q8HR IV 01/07/24 06:00 01/08/24 05:36 12.5 MLS/HR Cholecalciferol 4,000 unit DAILY PO 01/07/24 10:00 01/07/24 11:05 4,000 UNIT Dextrose 50 ml UD PRN IV 01/07/24 04:00 Docusate Sodium 100 mg BIDPRN PRN PO 01/07/24 04:00 Enoxaparin Sodium 40 mg DAILY@0900 SC 01/07/24 09:00 01/07/24 11:04 40 MG Diagnostic Test (Pha) 1 strip Q6HR 01/07/24 06:00 01/08/24 05:46 1 STRIP Hydrocortisone Sodium Succinate 100 mg Q12HR IV 01/07/24 10:00 01/07/24 23:08 100 MG Insulin Human Regular Q6HR SC 01/07/24 06:00 Ipratropium [place] 0.5 mg Q6HWA NEB 01/07/24 06:00 01/08/24 06:12 0.5 MG Levalbuterol HCl 0.625 mg Q6HR NEB 01/07/24 06:00 01/08/24 06:12 0.625 MG Methadone HCl 80 mg DAILY@1200 PO 01/07/24 12:00 01/07/24 12:07 80 MG Morphine Sulfate 2 mg Q30M PRN IV 01/07/24 04:00 Nitroglycerin 0.4 mg Q5MINP PRN SL 01/07/24 04:00 Ondansetron HCl 4 mg Q4HP PRN IV 01/07/24 04:00 Pantoprazole Sodium 40 mg DAILY IV 01/07/24 10:00 01/07/24 11:04 40 MG Paroxetine HCl 40 mg DAILY PO 01/07/24 10:00 01/07/24 11:05 40 MG Patient Own Medication 1 cap DAILY PO 01/07/24 10:00 Vancomycin HCl 0 ml @ 0 mls/hr UD IV 01/07/24 04:00 Vancomycin HCl 300 ml @ 200 mls/hr Q8H IV 01/07/24 04:00 01/08/24 04:22 200 MLS/HR Laboratory Results Laboratory Tests 01/08/24 04:36 Chemistry Test 01/08/24 04:36 Calcium Level 9.0 mg/dL (8.7-10.4) Urinalysis Test 01/02/24 08:49 Urine Color Yellow (Yellow) Urine Clarity Clear (Clear) Urine pH 6.0 (5.0-9.0) Urine Specific [place] 1.038 (1.001-1.035) Urine Protein 1+ (Negative) H Urine Ketones 1+ (Negative) H Urine Blood 1+ /uL (Negative) H Urine Nitrite Negative (Negative) Urine Bilirubin Negative (Negative) Urine Urobilinogen Normal mg/dL (Negative) Urine Leukocyte Esterase Negative /uL (Negative) Urine RBC 1 /hpf (0 - 3) Urine WBC 4 /hpf (0 - 3) Urine Squamous Epithelial Cells None seen /hpf (<5) Urine Bacteria None seen /hpf (None Seen) Urine Glucose 4+ mg/dL (Normal) H Microbiology Microbiology Date/Time Source Procedure Growth Status 01/04/24 15:13 Nose MRSA Screen - Final Complete 01/02/24 16:56 Sputum Gram Stain - Final Complete 01/02/24 16:56 Respiratory Culture - Final Staphylococcus aureus Presumptive Nitza albicans Complete 01/02/24 12:53 Blood Blood Culture - Final NO GROWTH AFTER 5 DAYS OF INCUBATION. Complete Labs and/or images reviewed: Labs reviewed by me Assessment/Plan Assessment/Plan # sepsis likely due to pneumonia # respiratory acidosis with metabolic alkalosis- resolved # community-acquired pneumonia likely due to ?Gram +/- ? Atypical bacterial infection # history of COVID in 2020 , lung fibrosis worse on the left - chest x-ray shows bilateral opacities - chest CT shows marked predominantly ground-glass airspace opacities in the left lung diffusely and right perihilar lung area. Supraclavicular, mediastinal, left hilar adenopathy likely reactive - WBC count elevated with left shift - COVID and influenza type a and B negative - QuantiFERON TB gold test pending - patient complained of hemoptysis - initial ABG 01/01/2024 at 1434hrs showed pH 7.266, pCO2 52.9, bicarb 23.5 - repeat ABG showed increasing pCO2 - patient initially on non-rebreather mask then was put on BiPap -Now patient is on High flow O2, Flow rate is 12 and FIO2: 100 - patient on vancomycin as per pharmacy, cefepime 1 g q.8 hour , azithromycin 500 g daily IV # Acute hypoxic respiratory failure likely due to pneumonia possible gram+/- bacterial infection - Patient was on BiPAP. Patient's ABG normalized, discontinue BiPAP for now and continue BiPAP at nighttime. - levalbuterol and ipratropium nebulizer q.6 hours # pulmonary embolism ruled out - Wells score 2.5 - D-dimer elevated - CT angio chest revealed no evidence of pulmonary embolism - extremity venous study showed no evidence of femoropopliteal vein thrombosis # obstructive sleep apnea with BiPAP at night at home # echocardiogram shows left ventricular ejection fraction 55%, grade 1 diastolic dysfunction with mild to moderately increased right ventricular pressure # transaminitis with the elevated ALP # H/o episodes of rectal bleed - CT shows diffuse severe hepatic steatosis - GGT pending - patient does not complain of nausea,vomiting, diarrhoea,hematochezia,abdominal pain. # uncontrolled type 2 diabetes mellitus - HbA1c 7.7% - patient on mild insulin sliding scale - goal blood glucose 140-180 mg/dl # chronic back pain - At home the patient was on methadone 93 mg daily - Patient continued on methadone 80 mg daily # hypertriglyceridemia - fenofibrate daily Continuing current management. Continuing to try to wean patient off high-flow oxygen. Continuing methadone. Continuing with IV antibiotic. Continuing with sliding scale insulin Plan discussed with: Patient, Other (Rn) Date of Service: Jan 08, 2024 Billing Provider: JAZMIN NOVA MD Common Visit Codes: [id number] INP/OBS CARE(HIGH) JAZMIN NOVA MD Jan 08, 2024 08:18
[2024-01-08] MEDS: ACETAMINOPHEN 325 MG TAB PO PRN (09:51)
[2024-01-08] MEDS: DOCUSATE SOD 100 MG CAP PO PRN (09:53)
[2024-01-08 14:25] LABS: Base Excess -0.3 mmol/L (-2.0-3.0)
[2024-01-08] MEDS: VANCOMYCIN 1GM/250ML KIT 400 ML IV ONE (20:08)
--- NOTE | 2024-01-08 23:41 | DVHPN2 ---
Progress Note - Dictate Date Seen: Jan 07, 2024 Medical Necessity Reason Pt with a Central, PICC or Fol: No Subjective Patient seen and examined at bedside. On supplemental oxygen Overnight events reviewed. vital signs Vital Sign Date Time Temp Pulse Resp B/P (MAP) Pulse Ox O2 Delivery O2 Flow Rate FiO2 01/08/24 23:00 82 15 97 01/08/24 22:05 Facial BiPAP Mask 40 01/08/24 22:00 40 01/08/24 20:45 98.8 98.8 Total Intake and Output 01/07/24 01/07/24 01/08/24 15:00 23:00 07:00 Intake Total 50 ml 350 ml 900 ml Output Total 400 ml Balance 50 ml 350 ml 500 ml medications Current Medications Medications Dose Ordered Sig/Joseph Route Start Time Stop Time Status Last Admin Dose Admin Methadone HCl 80 mg DAILY PO 01/03/24 10:00 Cancel Methadone HCl 80 mg DAILY PO 01/02/24 12:15 UNV Acetaminophen 650 mg Q6HP PRN PO 01/07/24 04:00 01/08/24 09:51 650 MG Alprazolam 0.25 mg Q8HP PRN PO 01/07/24 04:00 01/07/24 10:27 0.25 MG Azithromycin 250 ml @ 125 mls/hr DAILY@0200 IV 01/08/24 02:00 01/08/24 02:00 125 MLS/HR Carisoprodol 350 mg TID PO 01/07/24 06:00 01/08/24 21:06 350 MG Cefepime HCl 50 ml @ 12.5 mls/hr Q8HR IV 01/07/24 06:00 01/08/24 21:06 12.5 MLS/HR Cholecalciferol 4,000 unit DAILY PO 01/07/24 10:00 01/07/24 11:05 4,000 UNIT Dextrose 50 ml UD PRN IV 01/07/24 04:00 Docusate Sodium 100 mg BIDPRN PRN PO 01/07/24 04:00 01/08/24 09:53 100 MG Enoxaparin Sodium 40 mg DAILY@0900 SC 01/07/24 09:00 01/08/24 09:50 40 MG Diagnostic Test (Pha) 1 strip Q6HR 01/07/24 06:00 01/08/24 18:19 1 STRIP Hydrocortisone Sodium Succinate 100 mg Q12HR IV 01/07/24 10:00 01/08/24 21:07 100 MG Insulin Human Regular Q6HR SC 01/07/24 06:00 Ipratropium [place] 0.5 mg Q6HWA [facility] 01/07/24 06:00 01/08/24 18:32 0.5 MG Levalbuterol HCl 0.625 mg Q6HR NEB 01/07/24 06:00 01/08/24 18:33 0.625 MG Methadone HCl 80 mg DAILY@1200 PO 01/07/24 12:00 01/08/24 12:27 80 MG Morphine Sulfate 2 mg Q30M PRN IV 01/07/24 04:00 Nitroglycerin 0.4 mg Q5MINP PRN SL 01/07/24 04:00 Ondansetron HCl 4 mg Q4HP PRN IV 01/07/24 04:00 Pantoprazole Sodium 40 mg DAILY IV 01/07/24 10:00 01/08/24 09:50 40 MG Paroxetine HCl 40 mg DAILY PO 01/07/24 10:00 01/08/24 09:51 40 MG Patient Own Medication 1 cap DAILY PO 01/07/24 10:00 Vancomycin HCl 0 ml @ 0 mls/hr UD IV 01/07/24 04:00 Vancomycin HCl 300 ml @ 200 mls/hr Q8H IV 01/07/24 04:00 01/08/24 20:00 200 MLS/HR objective Gen.: Patient lying in bed in no apparent distress. On supplemental oxygen. Head: Normocephalic, atraumatic. Eyes: EOMI/PERRLA. Ears: Normal hearing. Normal anatomy. Neck/trachea: Trachea midline, supple. Nose: Normal external anatomy. Mouth: Moist mucous membranes. Chest: Decreased air entry bilaterally. No wheezing or rhonchi. Cardiovascular: Positive S1, positive S2. Regular rate and rhythm. Abdomen: Positive bowel sounds in all 4 quadrants. Soft, non-tender, non- distended. : Deferred. Rectal: Deferred. Skin: Warm, dry. Intact. Extremities: 2+ radial pulses bilaterally. No lower extremity edema. Neuro: Awake, alert, oriented x3. No gross motor or sensory deficits. Cranial nerves II through XII intact. Gait not assessed. 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 CXR demonstrates worsening opacities, new opacities in the right lung. Continue antibiotics Maintain euvolemia Monitor renal function Labs and imaging reviewed. Rest of plan as noted below. Plan: On high flow O2 alternating with BiPAP Taper O2 as tolerated. Antibiotics Follow up cultures. Diurese to euvolemia Monitor renal function. Monitor electrolytes. Supplement as necessary. Monitor ins and outs. Echo reviewed. Cardiology recs appreciated. GI/DVT prophylaxis. Prognosis: Poor given patient's multiple co-morbidities. Condition: Critical Rest of plan per hospitalist and other consultants. A total of 35 minutes of critical care time was spent reviewing the patient record, examining the patient, making a diagnostic and therapeutic plan, discussing this plan with the medical personnel, following up on diagnostic studies and following the patient for clinical stability excluding any and all procedures. At least 50% of this time was spent in direct, [id number] contact. Thank you Dr. George Mott MD, for allowing me to participate in this patient's care. Further recommendations will depend on the patient's clinical course. Please do not hesitate to contact me if you have any questions or concerns. This medical document was created using an electronic medical record system with [employer] dictation system. Although these documentations are being carefully reviewed, there may still be some phonetic and typographical changes. The errors are purely typographical, due to imperfection on the software program, and do not reflect any compromise in the patient's medical care. Plan discussed with: Other (RN) Critical Care Time(min): 35 ANGELO FREED MD Jan 08, 2024 23:41
--- NOTE | 2024-01-08 23:42 | DVHPN2 ---
Progress Note - Dictate Date Seen: Jan 08, 2024 Medical Necessity Reason Pt with a Central, PICC or Fol: No Subjective Patient seen and examined at bedside. Remains on supplemental oxygen alternating with BiPAP Overnight events reviewed. vital signs Vital Sign Date Time Temp Pulse Resp B/P (MAP) Pulse Ox O2 Delivery O2 Flow Rate FiO2 01/08/24 23:00 82 15 97 01/08/24 22:05 Facial BiPAP Mask 40 01/08/24 22:00 40 01/08/24 20:45 98.8 98.8 Total Intake and Output 01/07/24 01/07/24 01/08/24 15:00 23:00 07:00 Intake Total 50 ml 350 ml 900 ml Output Total 400 ml Balance 50 ml 350 ml 500 ml medications Current Medications Medications Dose Ordered Sig/Joseph Route Start Time Stop Time Status Last Admin Dose Admin Methadone HCl 80 mg DAILY PO 01/03/24 10:00 Cancel Methadone HCl 80 mg DAILY PO 01/02/24 12:15 UNV Acetaminophen 650 mg Q6HP PRN PO 01/07/24 04:00 01/08/24 09:51 650 MG Alprazolam 0.25 mg Q8HP PRN PO 01/07/24 04:00 01/07/24 10:27 0.25 MG Azithromycin 250 ml @ 125 mls/hr DAILY@0200 IV 01/08/24 02:00 01/08/24 02:00 125 MLS/HR Carisoprodol 350 mg TID PO 01/07/24 06:00 01/08/24 21:06 350 MG Cefepime HCl 50 ml @ 12.5 mls/hr Q8HR IV 01/07/24 06:00 01/08/24 21:06 12.5 MLS/HR Cholecalciferol 4,000 unit DAILY PO 01/07/24 10:00 01/07/24 11:05 4,000 UNIT Dextrose 50 ml UD PRN IV 01/07/24 04:00 Docusate Sodium 100 mg BIDPRN PRN PO 01/07/24 04:00 01/08/24 09:53 100 MG Enoxaparin Sodium 40 mg DAILY@0900 SC 01/07/24 09:00 01/08/24 09:50 40 MG Diagnostic Test (Pha) 1 strip Q6HR 01/07/24 06:00 01/08/24 18:19 1 STRIP Hydrocortisone Sodium Succinate 100 mg Q12HR IV 01/07/24 10:00 01/08/24 21:07 100 MG Insulin Human Regular Q6HR SC 01/07/24 06:00 Ipratropium [place] 0.5 mg Q6HWA [facility] 01/07/24 06:00 01/08/24 18:32 0.5 MG Levalbuterol HCl 0.625 mg Q6HR NEB 01/07/24 06:00 01/08/24 18:33 0.625 MG Methadone HCl 80 mg DAILY@1200 PO 01/07/24 12:00 01/08/24 12:27 80 MG Morphine Sulfate 2 mg Q30M PRN IV 01/07/24 04:00 Nitroglycerin 0.4 mg Q5MINP PRN SL 01/07/24 04:00 Ondansetron HCl 4 mg Q4HP PRN IV 01/07/24 04:00 Pantoprazole Sodium 40 mg DAILY IV 01/07/24 10:00 01/08/24 09:50 40 MG Paroxetine HCl 40 mg DAILY PO 01/07/24 10:00 01/08/24 09:51 40 MG Patient Own Medication 1 cap DAILY PO 01/07/24 10:00 Vancomycin HCl 0 ml @ 0 mls/hr UD IV 01/07/24 04:00 Vancomycin HCl 300 ml @ 200 mls/hr Q8H IV 01/07/24 04:00 01/08/24 20:00 200 MLS/HR objective Gen.: Patient lying in bed in no apparent distress. On supplemental oxygen. Head: Normocephalic, atraumatic. Eyes: EOMI/PERRLA. Ears: Normal hearing. Normal anatomy. Neck/trachea: Trachea midline, supple. Nose: Normal external anatomy. Mouth: Moist mucous membranes. Chest: Decreased air entry bilaterally. No wheezing or rhonchi. Cardiovascular: Positive S1, positive S2. Regular rate and rhythm. Abdomen: Positive bowel sounds in all 4 quadrants. Soft, non-tender, non- distended. : Deferred. Rectal: Deferred. Skin: Warm, dry. Intact. Extremities: 2+ radial pulses bilaterally. No lower extremity edema. Neuro: Awake, alert, oriented x3. No gross motor or sensory deficits. Cranial nerves II through XII intact. Gait not assessed. laboratory and microbiology Laboratory Tests 01/08/24 04:36 Test 01/08/24 04:36 Range/Units Serum Glucose 106 74-106 mg/dL Assessment/Plan Impression: Acute hypoxic respiratory failure Acute on chronic hypercarbic respiratory failure Sepsis due to pneumonia Pneumonia, likely gram negative JAMES, on BiPAP Possible pulmonary hypertension 2/2 WHO Class II CHF + WHO Class III JAMES w/ chronic hypercarbic respiratory failure Obesity, BMI 36 Events: On supplemental oxygen High flow oxygen with FR 40, FiO2 60% alternating with BiPAP of 17/8, FiO2 40% for JAMES. HOB elevation Aspiration precautions. Broad spectrum antibiotics ABG reviewed, compensated. Maintain euvolemia Monitor renal function Accu-Cheks, ISS. Labs and imaging reviewed. Rest of plan as noted below. Plan: Supplemental oxygen. High flow oxygen with FR 40, FiO2 60% alternating with BiPAP of 17/8, FiO2 40% for JAMES Antibiotics Follow up cultures. Diurese to euvolemia Monitor renal function. Monitor electrolytes. Supplement as necessary. Monitor ins and outs. Echo reviewed. Cardiology recs appreciated. GI/DVT prophylaxis. Prognosis: Poor given patient's multiple co-morbidities. Condition: Critical Rest of plan per hospitalist and other consultants. A total of 35 minutes of critical care time was spent reviewing the patient record, examining the patient, making a diagnostic and therapeutic plan, discussing this plan with the medical personnel, following up on diagnostic studies and following the patient for clinical stability excluding any and all procedures. At least 50% of this time was spent in direct, [id number] contact. Thank you Dr. George Mott MD, for allowing me to participate in this patient's care. Further recommendations will depend on the patient's clinical course. Please do not hesitate to contact me if you have any questions or concerns. This medical document was created using an electronic medical record system with [employer] dictation system. Although these documentations are being carefully reviewed, there may still be some phonetic and typographical changes. The errors are purely typographical, due to imperfection on the software program, and do not reflect any compromise in the patient's medical care. Plan discussed with: Other (BLADIMIR Gongora) Critical Care Time(min): 35 ANGELO FREED MD Jan 08, 2024 23:42
[2024-01-09] VITALS (53 sets, daily range): BP systolic 128–160; BP diastolic 69–88; PULSE 66–86; RESP 13–25; TEMP 98–98.3; O2SAT 91–100
[2024-01-09] MEDS: VANCOMYCIN 1GM/250ML KIT 400 ML IV ONE (04:07)
[2024-01-09 06:09] LABS: Chloride 104 mmol/L (98-107); Potassium 3.8 mmol/L (3.5-5.1); Sodium 139 mmol/L (136-145)
[2024-01-09 06:10] LABS: Anion Gap 11 (5-15); Carbon Dioxide 24 mmol/L (20-31)
[2024-01-09 06:11] LABS: Hematocrit 46.2 % (41.0-53.0); Mean Corpuscular Hemoglobin 32.9 pg (28.0-32.0); Mean Corpuscular Hgb Conc. 34.8 g/dL (32.0-36.0); Mean Corpuscular Volume 94.7 fL (80.0-100.0); Platelet Count (auto) 373 10^3/uL (140-450); Red Blood Cells 4.87 10^6/uL (4.5-5.90); Red Cell Distribution Width 13.2 % (11.8-14.3); White Blood Cell 12.2 10^3/uL (4.4-10.8)
[2024-01-09 06:15] LABS: Blood Urea Nitrogen 14 mg/dL (9-23)
[2024-01-09 06:19] LABS: Glucose 117 mg/dL (74-106)
[2024-01-09 06:25] LABS: Basophils % (manual) 0 (0.0-2.0); Blast Cells 0; Metamyelocytes % 0; Myelocytes % 0; Promyelocytes % 0; Reactive Lymphocytes 0
[2024-01-09 09:01] LABS: Band Neutrophils % (manual) 3; Eosinophils % (manual) 1 (0-7); Lymphocytes % (manual) 11 (10.0-50.0); Monocytes % (manual) 7 (0-12); Platelet Estimate Adequate
--- NOTE | 2024-01-09 11:36 | MEDREC ---
[facility] Intervention Section I [facility] Intervention: Deescalate AB based on CS (PLEASE CONSIDER DE-ESCALATION SINCE RESP CULTURE POSITIVE FOR MSSA AND PRESUMPTIVE REMI ALBICANS BLOOD CULTURE WITH NO GROWTH ) DIDI MARQUES PHARMACIST Jan 09, 2024 11:36
[2024-01-09] MEDS: POTASSIUM CHL 20 Meq TABLET PO ONE (16:11)
[2024-01-09] MEDS: FUROSEMIDE 20 MG/2 ML VIAL IV ONE (16:12)
--- NOTE | 2024-01-09 17:20 | DVHPNRES ---
Progress Note Date Seen: Jan 09, 2024 Resident Creating Document: STEFANI DESAI RESIDENT Medical Necessity Reason Pt with a Central, PICC or Fol: No Subjective Review of Systems Patient is a 49-year-old male with a past medical history of type 2 diabetes mellitus, lung fibrosis following COVID pneumonia in 2020 currently on home oxygen 3 liters/minute, fatty liver, obstructive sleep apnea on BiPAP, chronic back pain on methadone daily was brought to the ED with a worsening shortness of breath and altered mental status for 1 day prior to admission. Patient's partner reported that for 4-5 days prior to admission patient has started to have cough and night prior to admission it worsen when he had cough with expectoration with bright red blood, worsening shortness of breath. In the morning patient went to the methadone clinic to get his daily to and oncoming whom he was altered and sleepy and her difficulty breathing following which he was brought to the ED for further evaluation. On arrival to the ED patient's SpO2 was 79% following which he was put on a non-rebreather mask and eventually as he was desaturating he was put on facial BiPAP mask. Patient's blood pressure was stable on admission and remained stable throughout. Patient's initial ABGs showed respiratory acidosis with pCO2 52.9. CBC showed elevated WBC count with left shift. BMP showed normal electrolytes and GFR and creatinine within normal limits. Elevated AST ALT and ALP, elevated triglycerides. Showed normal LVEF at 55% with grade 1 diastolic dysfunction, no valvular abnormalities seen. Chest x-ray showed diffuse opacities more on the left than the right and pulmonary vascular congestion CT angiography showed no evidence of pulmonary embolism, marked predominantly ground-glass opacities in the left lung, supraclavicular, mediastinal and left hilar adenopathy. Home medications: Ozempic, fenofibrate, methadone 93mg daily, carisoprodol Review of systems Patient seen and examined at the bedside. Patient is alert and oriented x4, and lying in bed comfortably. Patient is on 3 L O2 with NC and continue BiPAP at nighttime. Patient is doing better downgraded to tele. Objective vital signs Vital Sign Date Time Temp Pulse Resp B/P (MAP) Pulse Ox O2 Delivery O2 Flow Rate FiO2 01/09/24 16:12 152/88 01/09/24 14:00 77 17 97 01/09/24 14:00 Nasal Cannula* 3 32 01/09/24 12:00 98.0 98.0 Total Intake and Output 01/08/24 01/08/24 01/09/24 15:00 23:00 07:00 Intake Total 350 ml 855.0 ml 1187.5 ml Output Total 1275 ml 1275 ml Balance 350 ml -420.0 ml -87.5 ml medications Current Medications Medications Dose Ordered Sig/Joseph Route Start Time Stop Time Status Last Admin Dose Admin Methadone HCl 80 mg DAILY PO 01/03/24 10:00 Cancel Methadone HCl 80 mg DAILY PO 01/02/24 12:15 UNV Acetaminophen 650 mg Q6HP PRN PO 01/07/24 04:00 01/08/24 09:51 650 MG Alprazolam 0.25 mg Q8HP PRN PO 01/07/24 04:00 01/07/24 10:27 0.25 MG Carisoprodol 350 mg TID PO 01/07/24 06:00 01/09/24 13:58 350 MG Cefepime HCl 50 ml @ 12.5 mls/hr Q8HR IV 01/07/24 06:00 01/09/24 13:52 12.5 MLS/HR Dextrose 50 ml UD PRN IV 01/07/24 04:00 Docusate Sodium 100 mg BIDPRN PRN PO 01/07/24 04:00 01/09/24 09:39 100 MG Enoxaparin Sodium 40 mg DAILY@0900 SC 01/07/24 09:00 01/09/24 09:39 40 MG Diagnostic Test (Pha) 1 strip Q6HR 01/07/24 06:00 01/09/24 12:00 1 STRIP Insulin Human Regular Q6HR SC 01/07/24 06:00 01/09/24 05:49 2 UNITS Ipratropium [place] 0.5 mg Q6HWA [facility] 01/07/24 06:00 01/09/24 11:38 0.5 MG Levalbuterol HCl 0.625 mg Q6HR NEB 01/07/24 06:00 01/09/24 11:38 0.625 MG Methadone HCl 80 mg DAILY@1200 PO 01/07/24 12:00 01/09/24 12:00 80 MG Morphine Sulfate 2 mg Q30M PRN IV 01/07/24 04:00 Nitroglycerin 0.4 mg Q5MINP PRN SL 01/07/24 04:00 Ondansetron HCl 4 mg Q4HP PRN IV 01/07/24 04:00 Pantoprazole Sodium 40 mg DAILY IV 01/07/24 10:00 01/09/24 09:39 40 MG Paroxetine HCl 40 mg DAILY PO 01/07/24 10:00 01/09/24 09:39 40 MG Vancomycin HCl 0 ml @ 0 mls/hr UD IV 01/07/24 04:00 Vancomycin HCl 300 ml @ 200 mls/hr Q8H IV 01/07/24 04:00 01/09/24 11:59 200 MLS/HR Enteral Nutritional Formula 240 ml BIDWM PO 01/09/24 18:00 Examination Gen - no pallor, no icterus, no cyanosis, no clubbing, no LAD, no edema . Skin - Patients skin is warm and dry. HEENT - normocephalic, atraumatic, dry mucous membranes. Neck - full ROM, no LAD, no JVD Pulmonary - decreased breath sounds bilaterally with bilateral fine inspiratory crackles more on the left side. no wheezing. cardiovascular - normal S1,S2 heard. no murmurs heard. peripheral pulses normal radial 2+, pedal 2+. capillary refill normal <2 secs. GI - soft abdomen without tenderness to palpation . no hepatospleenomegaly. Bowel sounds +. Neurological - Patient is A/O X 3. Bilateral upper extremity strength 5/5, bilateral lower extremity strength 4/5, laboratory and microbiology Laboratory Tests 01/09/24 05:16 Test 01/09/24 05:16 Range/Units Serum Glucose 117 H 74-106 mg/dL Microbiology Date/Time Source Procedure Growth Status 01/07/24 22:32 Nose MRSA Screen - Final Complete 01/02/24 16:56 Sputum Gram Stain - Final Complete 01/02/24 16:56 Respiratory Culture - Final Staphylococcus aureus Presumptive Nitza albicans Complete 01/02/24 12:53 Blood Blood Culture - Final NO GROWTH AFTER 5 DAYS OF INCUBATION. Complete Problem List/Assessment/Plan Problem List/Assessment/Plan # sepsis likely due to pneumonia due to mssa # respiratory acidosis with metabolic alkalosis- resolved # community-acquired pneumonia likely due to ?Gram +/- ? Atypical bacterial infection # history of COVID in 2020 , lung fibrosis worse on the left - chest x-ray shows bilateral opacities - chest CT shows marked predominantly ground-glass airspace opacities in the left lung diffusely and right perihilar lung area. Supraclavicular, mediastinal, left hilar adenopathy likely reactive - WBC count elevated with left shift - COVID and influenza type a and B negative - QuantiFERON TB gold test pending - patient complained of hemoptysis - initial ABG 01/01/2024 at 1434hrs showed pH 7.266, pCO2 52.9, bicarb 23.5 - patient initially on non-rebreather mask then was put on BiPap -Now patient is on High flow O2, Flow rate is 70 and FIO2: 100 - patient on vancomycin as per pharmacy, cefepime 1 g q.8 hour , azithromycin 500 g daily IV # Acute hypoxic respiratory failure likely due to pneumonia possible gram+/- bacterial infection - Patient was on BiPAP. Patient's ABG normalized, discontinue BiPAP for now and continue BiPAP at nighttime. - levalbuterol and ipratropium nebulizer q.6 hours # pulmonary embolism ruled out - Wells score 2.5 - D-dimer elevated - CT angio chest revealed no evidence of pulmonary embolism - extremity venous study showed no evidence of femoropopliteal vein thrombosis # obstructive sleep apnea with BiPAP at night at home # echocardiogram shows left ventricular ejection fraction 55%, grade 1 diastolic dysfunction with mild to moderately increased right ventricular pressure # transaminitis with the elevated ALP # H/o episodes of rectal bleed - CT shows diffuse severe hepatic steatosis - patient does not complain of nausea,vomiting, diarrhoea,hematochezia,abdominal pain. # uncontrolled type 2 diabetes mellitus - HbA1c 7.7% - patient on mild insulin sliding scale - goal blood glucose 140-180 mg/dl # chronic back pain - At home the patient was on methadone 93 mg daily - Patient continued on methadone 80 mg daily # hypertriglyceridemia - fenofibrate daily Ordered Repeat CXR today: Patient is on 3 L O2 with NC and continue BiPAP at nighttime. Patient is doing better downgraded to tele. Critical Care time spent 46 minutes including patient care, chart review and updating family, excluding procedure. Case discussed with Dr. Enrique. Plan discussed with: Patient Date of Service: Jan 09, 2024 Billing Provider: YUKI ENRIQUE MD Common Visit Codes: [id number] CARE 30-74 MIN STEFANI DESAI RESIDENT Jan 09, 2024 17:20 YUKI ENRIQUE MD Jan 10, 2024 14:57
[2024-01-09] MEDS: Glucerna Carbsteady SHAKE Vanilla 8oz PO SCH (18:22)
--- NOTE | 2024-01-09 19:37 | DVH ---
EXAM: XY CHEST XRAY 1 VIEW TECHNIQUE: Single frontal chest radiograph CLINICAL HISTORY: Pneumonia COMPARISON: XY CHEST XRAY 1 VIEW on DOS: 01/06/24, XY CHEST PORTABLE on DOS: 01/01/24 Findings/Impression: Frontal chest radiograph demonstrates no acute osseous or superficial soft tissue abnormalities. The trachea is midline. The cardiac silhouette and mediastinum are within normal limits. Moderate hypoinflation of the lungs. Patchy opacities in robin left lung, unchanged. No pneumothorax or pleural effusions.
[2024-01-10] VITALS (29 sets, daily range): BP systolic 133–149; BP diastolic 73–87; PULSE 69–96; RESP 13–20; TEMP 97.2–98.6; O2SAT 91–98
[2024-01-10 07:12] LABS: Basophils # (auto) 0 10 ^3/uL (0-0.2); Basophils % (auto) 0.3 % (0.0-2.0); Eosinophils # (auto) 0.7 10 ^3/uL (0-0.8); Eosinophils % (auto) 5.5 % (0.0-7.0); Hematocrit 43.9 % (41.0-53.0); Hemoglobin 15.3 g/dL (13.5-17.5); Lymphocytes # (auto) 1.2 10 ^3/uL (0.4-5.4); Lymphocytes % (auto) 9.4 % (10.0-50.0); Mean Corpuscular Hemoglobin 32.8 pg (28.0-32.0); Mean Corpuscular Hgb Conc. 34.9 g/dL (32.0-36.0); Mean Corpuscular Volume 94.1 fL (80.0-100.0); Monocytes # (auto) 1.1 10 ^3/uL (0-1.3); Monocytes % (auto) 8.3 % (0.0-12.0); Neutrophils # (auto) 9.8 10 ^3/uL (1.6-8.6); Neutrophils % (auto) 76.5 % (37.0-80.0); Nucleated Red Blood Cells % 0.1 %; Platelet Count (auto) 437 10^3/uL (140-450); Red Blood Cells 4.67 10^6/uL (4.5-5.90); Red Cell Distribution Width 13.1 % (11.8-14.3); White Blood Cell 12.8 10^3/uL (4.4-10.8)
[2024-01-10 07:18] LABS: Chloride 104 mmol/L (98-107); Potassium 3.3 mmol/L (3.5-5.1); Sodium 140 mmol/L (136-145)
[2024-01-10 07:19] LABS: Anion Gap 10 (5-15); Calcium 9.2 mg/dL (8.7-10.4); Carbon Dioxide 26 mmol/L (20-31)
[2024-01-10 07:24] LABS: BUN/Creatinine Ratio 24.3 (10.0-20.0); Blood Urea Nitrogen 17 mg/dL (9-23); Glucose 95 mg/dL (74-106)
[2024-01-10] MEDS: POTASSIUM CHL 20 Meq TABLET PO ONE (12:42)
--- NOTE | 2024-01-10 16:59 | DVHPNRES ---
Progress Note Date Seen: Jan 10, 2024 Resident Creating Document: STEFANI DESAI RESIDENT Medical Necessity Reason Pt with a Central, PICC or Fol: No Subjective Review of Systems Patient is a 49-year-old male with a past medical history of type 2 diabetes mellitus, lung fibrosis following COVID pneumonia in 2020 currently on home oxygen 3 liters/minute, fatty liver, obstructive sleep apnea on BiPAP, chronic back pain on methadone daily was brought to the ED with a worsening shortness of breath and altered mental status for 1 day prior to admission. Patient's partner reported that for 4-5 days prior to admission patient has started to have cough and night prior to admission it worsen when he had cough with expectoration with bright red blood, worsening shortness of breath. In the morning patient went to the methadone clinic to get his daily to and oncoming whom he was altered and sleepy and her difficulty breathing following which he was brought to the ED for further evaluation. On arrival to the ED patient's SpO2 was 79% following which he was put on a non-rebreather mask and eventually as he was desaturating he was put on facial BiPAP mask. Patient's blood pressure was stable on admission and remained stable throughout. Patient's initial ABGs showed respiratory acidosis with pCO2 52.9. CBC showed elevated WBC count with left shift. BMP showed normal electrolytes and GFR and creatinine within normal limits. Elevated AST ALT and ALP, elevated triglycerides. Showed normal LVEF at 55% with grade 1 diastolic dysfunction, no valvular abnormalities seen. Chest x-ray showed diffuse opacities more on the left than the right and pulmonary vascular congestion CT angiography showed no evidence of pulmonary embolism, marked predominantly ground-glass opacities in the left lung, supraclavicular, mediastinal and left hilar adenopathy. Home medications: Ozempic, fenofibrate, methadone 93mg daily, carisoprodol Review of systems Patient seen and examined at the bedside. Patient is alert and oriented x4, and lying in bed comfortably. Patient is on 3 L O2 with NC and continue BiPAP at nighttime. Patient is doing better. Patient walked with PT today. Objective vital signs Vital Sign Date Time Temp Pulse Resp B/P (MAP) Pulse Ox O2 Delivery O2 Flow Rate FiO2 01/10/24 12:50 98.6 77 19 142/82 (102) 92 98.6 01/10/24 11:59 Nasal Cannula* 3 32 Total Intake and Output 01/09/24 01/09/24 01/10/24 15:00 23:00 07:00 Intake Total 337.5 ml 856.0 ml 424.0 ml Output Total 2075 ml 400 ml Balance 337.5 ml -1219.0 ml 24.0 ml medications Current Medications Medications Dose Ordered Sig/Joseph Route Start Time Stop Time Status Last Admin Dose Admin Methadone HCl 80 mg DAILY PO 01/03/24 10:00 Cancel Methadone HCl 80 mg DAILY PO 01/02/24 12:15 UNV Acetaminophen 650 mg Q6HP PRN PO 01/07/24 04:00 01/08/24 09:51 650 MG Alprazolam 0.25 mg Q8HP PRN PO 01/07/24 04:00 01/10/24 08:36 0.25 MG Carisoprodol 350 mg TID PO 01/07/24 06:00 01/10/24 14:05 350 MG Cefepime HCl 50 ml @ 12.5 mls/hr Q8HR IV 01/07/24 06:00 01/10/24 15:48 12.5 MLS/HR Dextrose 50 ml UD PRN IV 01/07/24 04:00 Docusate Sodium 100 mg BIDPRN PRN PO 01/07/24 04:00 01/09/24 09:39 100 MG Enoxaparin Sodium 40 mg DAILY@0900 SC 01/07/24 09:00 01/10/24 09:26 40 MG Diagnostic Test (Pha) 1 strip Q6HR 01/07/24 06:00 01/10/24 11:49 1 STRIP Insulin Human Regular Q6HR SC 01/07/24 06:00 01/09/24 18:20 3 UNITS Ipratropium [place] 0.5 mg Q6HWA [facility] 01/07/24 06:00 01/10/24 11:59 0.5 MG Levalbuterol HCl 0.625 mg Q6HR NEB 01/07/24 06:00 01/10/24 11:59 0.625 MG Methadone HCl 80 mg DAILY@1200 PO 01/07/24 12:00 01/10/24 12:43 80 MG Morphine Sulfate 2 mg Q30M PRN IV 01/07/24 04:00 Nitroglycerin 0.4 mg Q5MINP PRN SL 01/07/24 04:00 Ondansetron HCl 4 mg Q4HP PRN IV 01/07/24 04:00 Paroxetine HCl 40 mg DAILY PO 01/07/24 10:00 01/10/24 09:26 40 MG Enteral Nutritional Formula 240 ml BIDWM PO 01/09/24 18:00 01/10/24 08:26 240 ML Pantoprazole Sodium 40 mg DAILY@0600 PO 01/11/24 06:00 Examination Gen - no pallor, no icterus, no cyanosis, no clubbing, no LAD, no edema . Skin - Patients skin is warm and dry. HEENT - normocephalic, atraumatic, dry mucous membranes. Neck - full ROM, no LAD, no JVD Pulmonary - decreased breath sounds bilaterally with bilateral fine inspiratory crackles more on the left side. no wheezing. cardiovascular - normal S1,S2 heard. no murmurs heard. peripheral pulses normal radial 2+, pedal 2+. capillary refill normal <2 secs. GI - soft abdomen without tenderness to palpation . no hepatosplenomegaly. Bowel sounds +. Neurological - Patient is A/O X 3. Bilateral upper extremity strength 5/5, bilateral lower extremity strength 4/5, laboratory and microbiology Laboratory Tests 01/10/24 06:22 Test 01/10/24 06:22 Range/Units Serum Glucose 95 74-106 mg/dL Microbiology Date/Time Source Procedure Growth Status 01/07/24 22:32 Nose MRSA Screen - Final Complete 01/02/24 16:56 Sputum Gram Stain - Final Complete 01/02/24 16:56 Respiratory Culture - Final Staphylococcus aureus Presumptive Nitza albicans Complete 01/02/24 12:53 Blood Blood Culture - Final NO GROWTH AFTER 5 DAYS OF INCUBATION. Complete Problem List/Assessment/Plan Problem List/Assessment/Plan # sepsis likely due to pneumonia, MSSA pneumonia # respiratory acidosis with metabolic alkalosis- resolved # community-acquired pneumonia likely due to ?Gram +/- ? Atypical bacterial infection # history of COVID in 2020 , lung fibrosis worse on the left - chest x-ray shows bilateral opacities - chest CT shows marked predominantly ground-glass airspace opacities in the left lung diffusely and right perihilar lung area. Supraclavicular, mediastinal, left hilar adenopathy likely reactive - WBC count elevated with left shift - COVID and influenza type a and B negative - QuantiFERON TB gold test pending - patient complained of hemoptysis - initial ABG 01/01/2024 at 1434hrs showed pH 7.266, pCO2 52.9, bicarb 23.5 - patient initially on non-rebreather mask then was put on BiPap -Now patient is on High flow O2, Flow rate is 70 and FIO2: 100 - patient on cefepime 1 g q.8 hour , azithromycin 500 g daily IV - Discontinue vancomycin today as patient has MSSA pneumonia # Acute hypoxic respiratory failure likely due to pneumonia possible gram+/- bacterial infection - Patient was on BiPAP. Patient's ABG normalized, discontinue BiPAP for now and continue BiPAP at nighttime. - levalbuterol and ipratropium nebulizer q.6 hours # pulmonary embolism ruled out - Wells score 2.5 - D-dimer elevated - CT angio chest revealed no evidence of pulmonary embolism - extremity venous study showed no evidence of femoropopliteal vein thrombosis # obstructive sleep apnea with BiPAP at night at home # echocardiogram shows left ventricular ejection fraction 55%, grade 1 diastolic dysfunction with mild to moderately increased right ventricular pressure # transaminitis with the elevated ALP # H/o episodes of rectal bleed - CT shows diffuse severe hepatic steatosis - patient does not complain of nausea,vomiting, diarrhoea,hematochezia,abdominal pain. # uncontrolled type 2 diabetes mellitus - HbA1c 7.7% - patient on mild insulin sliding scale - goal blood glucose 140-180 mg/dl # Chronic back pain - At home the patient was on methadone 93 mg daily - Patient continued on methadone 80 mg daily # Hypertriglyceridemia - fenofibrate daily Ordered Repeat CXR today: Patient is on 3 L O2 with NC and continue BiPAP at nighttime. Patient is doing better. Patient walked with PT today. Social service is consulted for walker. Case discussed with Dr. Enrique. Plan discussed with: Patient My Orders My Orders Orders - STEFANI DESAI RESIDENT Procedure Category Date Status Time Chest Xray 1 View XY 01/09/24 Resulted 17:18 Dietary Evaluation Review Comments: Continue current plan of care Expected Outcomes/Goals: F/U in 3-5 days Date of Service: Jan 10, 2024 Billing Provider: YUKI ENRIQUE MD Common Visit Codes: [id number] INP/OBS CARE(HIGH) STEFANI DESAI RESIDENT Jan 10, 2024 16:59 YUKI ENRIQUE MD Jan 11, 2024 14:27
[2024-01-11] VITALS (26 sets, daily range): BP systolic 122–149; BP diastolic 70–86; PULSE 77–94; RESP 15–20; TEMP 97.8–98.5; O2SAT 92–100
[2024-01-11] MEDS: PANTOPRAZOLE 40 MG TAB PO SCH (06:26)
[2024-01-11 06:55] LABS: Basophils # (auto) 0.1 10 ^3/uL (0-0.2); Basophils % (auto) 0.5 % (0.0-2.0); Eosinophils # (auto) 0.9 10 ^3/uL (0-0.8); Eosinophils % (auto) 7.7 % (0.0-7.0); Hematocrit 44.2 % (41.0-53.0); Hemoglobin 15.2 g/dL (13.5-17.5); Lymphocytes # (auto) 1.3 10 ^3/uL (0.4-5.4); Lymphocytes % (auto) 11.5 % (10.0-50.0); Mean Corpuscular Hemoglobin 32.7 pg (28.0-32.0); Mean Corpuscular Hgb Conc. 34.5 g/dL (32.0-36.0); Mean Corpuscular Volume 94.8 fL (80.0-100.0); Monocytes # (auto) 1.2 10 ^3/uL (0-1.3); Neutrophils # (auto) 8.1 10 ^3/uL (1.6-8.6); Neutrophils % (auto) 70.3 % (37.0-80.0); Nucleated Red Blood Cells % 0.2 %; Platelet Count (auto) 419 10^3/uL (140-450); Red Blood Cells 4.66 10^6/uL (4.5-5.90); Red Cell Distribution Width 13.2 % (11.8-14.3); White Blood Cell 11.5 10^3/uL (4.4-10.8)
[2024-01-11 06:59] LABS: Anion Gap 9 (5-15); Carbon Dioxide 25 mmol/L (20-31); Chloride 105 mmol/L (98-107); Potassium 3.8 mmol/L (3.5-5.1); Sodium 139 mmol/L (136-145)
[2024-01-11 07:05] LABS: BUN/Creatinine Ratio 22.2 (10.0-20.0); Blood Urea Nitrogen 14 mg/dL (9-23); Glucose 84 mg/dL (74-106)
--- NOTE | 2024-01-11 14:58 | DVHPNRES ---
Progress Note Date Seen: Jan 11, 2024 Resident Creating Document: STEFANI DESAI RESIDENT Medical Necessity Reason Pt with a Central, PICC or Fol: No Subjective Review of Systems Patient is a 49-year-old male with a past medical history of type 2 diabetes mellitus, lung fibrosis following COVID pneumonia in 2020 currently on home oxygen 3 liters/minute, fatty liver, obstructive sleep apnea on BiPAP, chronic back pain on methadone daily was brought to the ED with a worsening shortness of breath and altered mental status for 1 day prior to admission. Patient's partner reported that for 4-5 days prior to admission patient has started to have cough and night prior to admission it worsen when he had cough with expectoration with bright red blood, worsening shortness of breath. In the morning patient went to the methadone clinic to get his daily to and oncoming whom he was altered and sleepy and her difficulty breathing following which he was brought to the ED for further evaluation. On arrival to the ED patient's SpO2 was 79% following which he was put on a non-rebreather mask and eventually as he was desaturating he was put on facial BiPAP mask. Patient's blood pressure was stable on admission and remained stable throughout. Patient's initial ABGs showed respiratory acidosis with pCO2 52.9. CBC showed elevated WBC count with left shift. BMP showed normal electrolytes and GFR and creatinine within normal limits. Elevated AST ALT and ALP, elevated triglycerides. Showed normal LVEF at 55% with grade 1 diastolic dysfunction, no valvular abnormalities seen. Chest x-ray showed diffuse opacities more on the left than the right and pulmonary vascular congestion CT angiography showed no evidence of pulmonary embolism, marked predominantly ground-glass opacities in the left lung, supraclavicular, mediastinal and left hilar adenopathy. Home medications: Ozempic, fenofibrate, methadone 93mg daily, carisoprodol Review of systems Patient seen and examined at the bedside. Patient is alert and oriented x4, and lying in bed comfortably. Patient is on 3 L O2 with NC and continue BiPAP at nighttime. Patient is doing better. Patient walked with PT today. Possible discharge tomorrow. Objective vital signs Vital Sign Date Time Temp Pulse Resp B/P (MAP) Pulse Ox O2 Delivery O2 Flow Rate FiO2 01/11/24 12:09 81 18 98 01/11/24 11:59 Nasal Cannula* 3 32 01/11/24 09:23 97.8 144/70 94) 97.8 Total Intake and Output 01/10/24 01/10/24 01/11/24 15:00 23:00 07:00 Intake Total 286 ml 834 ml Output Total 600 ml Balance 286 ml 234 ml medications Current Medications Medications Dose Ordered Sig/Joseph Route Start Time Stop Time Status Last Admin Dose Admin Methadone HCl 80 mg DAILY PO 01/03/24 10:00 Cancel Methadone HCl 80 mg DAILY PO 01/02/24 12:15 UNV Acetaminophen 650 mg Q6HP PRN PO 01/07/24 04:00 01/08/24 09:51 650 MG Alprazolam 0.25 mg Q8HP PRN PO 01/07/24 04:00 01/10/24 21:14 0.25 MG Carisoprodol 350 mg TID PO 01/07/24 06:00 01/11/24 14:49 350 MG Cefepime HCl 50 ml @ 12.5 mls/hr Q8HR IV 01/07/24 06:00 01/11/24 14:49 12.5 MLS/HR Dextrose 50 ml UD PRN IV 01/07/24 04:00 Docusate Sodium 100 mg BIDPRN PRN PO 01/07/24 04:00 01/09/24 09:39 100 MG Enoxaparin Sodium 40 mg DAILY@0900 SC 01/07/24 09:00 01/11/24 08:14 40 MG Diagnostic Test (Pha) 1 strip Q6HR 01/07/24 06:00 01/11/24 12:03 1 STRIP Insulin Human Regular Q6HR SC 01/07/24 06:00 01/09/24 18:20 3 UNITS Ipratropium [place] 0.5 mg Q6HWA NEB 01/07/24 06:00 01/11/24 11:57 0.5 MG Levalbuterol HCl 0.625 mg Q6HR NEB 01/07/24 06:00 01/11/24 11:59 0.625 MG Methadone HCl 80 mg DAILY@1200 PO 01/07/24 12:00 01/11/24 12:05 80 MG Morphine Sulfate 2 mg Q30M PRN IV 01/07/24 04:00 Nitroglycerin 0.4 mg Q5MINP PRN SL 01/07/24 04:00 Ondansetron HCl 4 mg Q4HP PRN IV 01/07/24 04:00 Paroxetine HCl 40 mg DAILY PO 01/07/24 10:00 01/11/24 09:31 40 MG Enteral Nutritional Formula 240 ml BIDWM PO 01/09/24 18:00 01/11/24 08:00 240 ML Pantoprazole Sodium 40 mg DAILY@0600 PO 01/11/24 06:00 01/11/24 06:26 40 MG Examination Gen - no pallor, no icterus, no cyanosis, no clubbing, no LAD, no edema . Skin - Patients skin is warm and dry. HEENT - normocephalic, atraumatic, dry mucous membranes. Neck - full ROM, no LAD, no JVD Pulmonary - decreased breath sounds bilaterally with bilateral fine inspiratory crackles more on the left side. no wheezing. cardiovascular - normal S1,S2 heard. no murmurs heard. peripheral pulses normal radial 2+, pedal 2+. capillary refill normal <2 secs. GI - soft abdomen without tenderness to palpation . no hepatosplenomegaly. Bowel sounds +. Neurological - Patient is A/O X 3. Bilateral upper extremity strength 5/5, bilateral lower extremity strength 4/5, laboratory and microbiology Laboratory Tests 01/11/24 06:00 Test 01/11/24 06:00 Range/Units Serum Glucose 84 74-106 mg/dL Microbiology Date/Time Source Procedure Growth Status 01/07/24 22:32 Nose MRSA Screen - Final Complete 01/02/24 16:56 Sputum Gram Stain - Final Complete 01/02/24 16:56 Respiratory Culture - Final Staphylococcus aureus Presumptive Nitza albicans Complete 01/02/24 12:53 Blood Blood Culture - Final NO GROWTH AFTER 5 DAYS OF INCUBATION. Complete Problem List/Assessment/Plan Problem List/Assessment/Plan # sepsis likely due to pneumonia, MSSA pneumonia # respiratory acidosis with metabolic alkalosis- resolved # community-acquired pneumonia likely due to ?Gram +/- ? Atypical bacterial infection # history of COVID in 2020 , lung fibrosis worse on the left - chest x-ray shows bilateral opacities - chest CT shows marked predominantly ground-glass airspace opacities in the left lung diffusely and right perihilar lung area. Supraclavicular, mediastinal, left hilar adenopathy likely reactive - WBC count elevated with left shift - COVID and influenza type a and B negative - QuantiFERON TB gold test: Negative - initial ABG 01/01/2024 at 1434hrs showed pH 7.266, pCO2 52.9, bicarb 23.5 - patient initially on non-rebreather mask then was put on BiPAP -Now patient is on High flow O2, Flow rate is 70 and FIO2: 100 - patient on cefepime 1 g q.8 hour , azithromycin 500 g daily IV # Acute hypoxic respiratory failure likely due to pneumonia possible gram+/- bacterial infection - Patient was on BiPAP. Patient's ABG normalized, discontinue BiPAP for now and continue BiPAP at nighttime. - levalbuterol and ipratropium nebulizer q.6 hours # pulmonary embolism ruled out - Wells score 2.5 - D-dimer elevated - CT angio chest revealed no evidence of pulmonary embolism - extremity venous study showed no evidence of femoropopliteal vein thrombosis # obstructive sleep apnea with BiPAP at night at home # echocardiogram shows left ventricular ejection fraction 55%, grade 1 diastolic dysfunction with mild to moderately increased right ventricular pressure # transaminitis with the elevated ALP # H/o episodes of rectal bleed - CT shows diffuse severe hepatic steatosis - patient does not complain of nausea,vomiting, diarrhoea,hematochezia,abdominal pain. # uncontrolled type 2 diabetes mellitus - HbA1c 7.7% - patient on mild insulin sliding scale - goal blood glucose 140-180 mg/dl # Chronic back pain - At home the patient was on methadone 93 mg daily - Patient continued on methadone 80 mg daily # Hypertriglyceridemia - fenofibrate daily Ordered Repeat CXR today: Patient is on 3 L O2 with NC and continue BiPAP at nighttime. Patient is doing better. Patient walked with PT today. Possible discharge tomorrow. advance care planning-full code-time spent 19 mins Case discussed with Dr. Enrique. Plan discussed with: Patient Dietary Evaluation Review Comments: Continue current plan of care Expected Outcomes/Goals: F/U in 3-5 days Date of Service: Jan 11, 2024 Billing Provider: YUKI ENRIQUE MD Common Visit Codes: 37290-[id number] INP/OBS CARE(HIGH) Secondary Visit Codes: [id number] CARE PLAN 30 MINUTES STEFANI DESAI RESIDENT Jan 11, 2024 14:58 YUKI ENRIQUE MD Jan 12, 2024 12:41
[2024-01-12] VITALS (13 sets, daily range): BP systolic 123–146; BP diastolic 76–92; PULSE 62–96; RESP 16–20; TEMP 97.5–98.3; O2SAT 91–98
[2024-01-12 07:13] LABS: Basophils # (auto) 0.1 10 ^3/uL (0-0.2); Basophils % (auto) 0.6 % (0.0-2.0); Eosinophils # (auto) 0.7 10 ^3/uL (0-0.8); Eosinophils % (auto) 6.6 % (0.0-7.0); Hematocrit 42.4 % (41.0-53.0); Hemoglobin 14.8 g/dL (13.5-17.5); Lymphocytes # (auto) 1.2 10 ^3/uL (0.4-5.4); Lymphocytes % (auto) 11.6 % (10.0-50.0); Mean Corpuscular Hemoglobin 33.3 pg (28.0-32.0); Mean Corpuscular Hgb Conc. 34.9 g/dL (32.0-36.0); Mean Corpuscular Volume 95.3 fL (80.0-100.0); Monocytes # (auto) 1.2 10 ^3/uL (0-1.3); Monocytes % (auto) 11.4 % (0.0-12.0); Neutrophils # (auto) 7.5 10 ^3/uL (1.6-8.6); Neutrophils % (auto) 69.8 % (37.0-80.0); Nucleated Red Blood Cells % 0.1 %; Platelet Count (auto) 431 10^3/uL (140-450); Red Blood Cells 4.45 10^6/uL (4.5-5.90); Red Cell Distribution Width 13.3 % (11.8-14.3); White Blood Cell 10.7 10^3/uL (4.4-10.8)
[2024-01-12 07:23] LABS: Chloride 106 mmol/L (98-107); Potassium 3.6 mmol/L (3.5-5.1); Sodium 138 mmol/L (136-145)
[2024-01-12 07:24] LABS: Anion Gap 6 (5-15); Carbon Dioxide 26 mmol/L (20-31)
[2024-01-12 07:26] LABS: Calcium 7.7 mg/dL (8.7-10.4)
[2024-01-12 07:29] LABS: BUN/Creatinine Ratio 17.2 (10.0-20.0); Blood Urea Nitrogen 11 mg/dL (9-23); Glucose 84 mg/dL (74-106)
[2024-01-12] MEDS ORDERED: AUG875T PO (15:25)
--- NOTE | 2024-01-12 15:26 | DVHDSRES ---
Discharge Summary Date of Admission Resident Creating Document: STEFANI DESAI RESIDENT Jan 01, 2024 at 21:00 Date of Discharge: Jan 12, 2024 Admitting Diagnosis Acute respiratory failure due to pneumonia Labs/Diagnostic Data: Laboratory Results Test 01/12/24 11:52 01/12/24 06:12 01/10/24 06:22 01/09/24 05:16 POC Glucose 108 mg/dl (70-106) White Blood Count 10.7 10^3/uL (4.4-10.8) Red Blood Count 4.45 10^6/uL (4.5-5.90) Hemoglobin 14.8 g/dL (13.5-17.5) Hematocrit 42.4 % (41.0-53.0) Mean Corpuscular Volume 95.3 fL (80.0-100.0) Mean Corpuscular Hemoglobin 33.3 pg (28.0-32.0) Mean Corpuscular Hemoglobin Concent 34.9 g/dL (32.0-36.0) Red Cell Distribution Width 13.3 % (11.8-14.3) Platelet Count 431 10^3/uL (140-450) Mean Platelet Volume 6.9 fL (6.9-10.8) Neutrophils (%) (Auto) 69.8 % (37.0-80.0) Lymphocytes (%) (Auto) 11.6 % (10.0-50.0) Monocytes (%) (Auto) 11.4 % (0.0-12.0) Eosinophils (%) (Auto) 6.6 % (0.0-7.0) Basophils (%) (Auto) 0.6 % (0.0-2.0) Neutrophils # (Auto) 7.5 10 ^3/uL (1.6-8.6) Lymphocytes # (Auto) 1.2 10 ^3/uL (0.4-5.4) Monocytes # (Auto) 1.2 10 ^3/uL (0-1.3) Eosinophils # (Auto) 0.7 10 ^3/uL (0-0.8) Basophils # (Auto) 0.1 10 ^3/uL (0-0.2) Nucleated Red Blood Cells 0.1 % Sodium Level 138 mmol/L (136-145) Potassium Level 3.6 mmol/L (3.5-5.1) Chloride Level 106 mmol/L (98-107) Carbon Dioxide Level 26 mmol/L (20-31) Anion Gap 6 (5-15) Blood Urea Nitrogen 11 mg/dL (9-23) Creatinine 0.64 mg/dL (0.700-1.30) Glomerular Filtration Rate Calc 118 mL/min (>90) BUN/Creatinine Ratio 17.2 (10.0-20.0) Serum Glucose 84 mg/dL (74-106) Calcium Level 7.7 mg/dL (8.7-10.4) Vancomycin Level Trough 10.2 ug/mL (5-10) Differential Total Cells Counted 100.0 (100) Neutrophils % (Manual) 78 (37.0-80.0) Band Neutrophils % (Manual) 3 Lymphocytes % (Manual) 11 (10.0-50.0) Monocytes % (Manual) 7 (0-12) Eosinophils % (Manual) 1 (0-7) Basophils % (Manual) 0 (0.0-2.0) Metamyelocytes % (manual) 0 Myelocytes % (Manual) 0 Promyelocytes % (Manual) 0 Blast Cells % (Manual) 0 Reactive Lymphocytes 0 Platelet Estimate Adequate Test 01/08/24 14:11 01/07/24 04:31 01/04/24 03:46 01/03/24 07:29 Blood Gas Specimen Type Arterial Blood Gas Sample Site Right radial Blood Gas Patient Temperature 37.0 Arterial Blood Date Drawn [id number] Arterial Blood pH 7.429 (7.350-7.450) Arterial Blood Partial Pressure CO2 36.4 mmHg (35.0-48.0) Arterial Blood Partial Pressure O2 66.8 mmHg (83.0-108.0) Arterial Blood HCO3 23.6 mmol/L (21.0-28.0) Arterial Blood Oxygen Saturation 93.0 % (94.0-98.0) Arterial Blood Base Excess -0.3 mmol/L (-2.0-3.0) Arterial Blood Oxyhemoglobin 91.1 % (94.0-98.0) Arterial Blood Carboxyhemoglobin 1.4 % (0.5-1.5) Arterial Blood Methemoglobin 0.6 % (0.0-1.5) Bhaskar Test Yes Blood Gas Total Hemoglobin 16.00 g/dL (13.5-17.5) Blood Gas Liter Flow 40.00 Blood Gas Modality High flow FiO2 % 60.0 Total Bilirubin 1.1 mg/dL (0.2-1.0) Aspartate Amino Transferase (AST) 46 U/L (13-40) Alanine Aminotransferase (ALT) 24 U/L (7-40) Alkaline Phosphatase 92 U/L (46-116) Total Protein 7.2 g/dL (5.7-8.2) Albumin 3.4 g/dL (3.2-4.8) Giant Platelets Few Red Blood Cell Morphology Normal Lactic Acid Level 1.7 mmol/L (0.4-2.0) Magnesium Level 2.6 mg/dL (1.6-2.6) Random Vancomycin Level 4.5 ug/mL (5-10) Test 01/03/24 06:32 01/02/24 17:27 01/02/24 16:54 01/02/24 14:20 Blood Gas Set Respiration Rate 12.0 Blood Gas Pressure Support 9 Blood Gas EPAP 8 Blood Gas IPAP 17 Blood Gas Spontaneous Rate 14 Blood Gas Spontaneous Tidal Volume 829 Gamma Glutamyl Transpeptidase 88 U/L (<73) Blood Gas Critical Value Read Back Yes Blood Gas Notified Whom adin Pickard md Blood Gas Notified Time [id number] Blood Gas Notified By [employer] ella Trejo 01/02/24 09:06 01/02/24 08:49 01/02/24 04:41 01/01/24 21:56 TB Test (QFT) Gold Plus Negative (Negative) TB Test (QFT) Nil 0.10 IU/mL (.) TB Test (QFT) Mitogen >10.00 IU/mL (.) TB Test (QFT) Antigen 1 0.10 IU/mL (.) TB Test (QFT) Antigen 2 0.11 IU/mL (.) TB Test (QFT) Criteria Comment (.) Urine Color Yellow (Yellow) Urine Clarity Clear (Clear) Urine pH 6.0 (5.0-9.0) Urine Specific [place] 1.038 (1.001-1.035) Urine Protein 1+ (Negative) Urine Ketones 1+ (Negative) Urine Blood 1+ /uL (Negative) Urine Nitrite Negative (Negative) Urine Bilirubin Negative (Negative) Urine Urobilinogen Normal mg/dL (Negative) Urine Leukocyte Esterase Negative /uL (Negative) Urine RBC 1 /hpf (0 - 3) Urine WBC 4 /hpf (0 - 3) Urine Squamous Epithelial Cells None seen /hpf (<5) Urine Bacteria None seen /hpf (None Seen) Urine Glucose 4+ mg/dL (Normal) Urine Opiates Screen Neg (NEGATIVE) Urine Fentanyl Screen Neg (NEGATIVE) Urine Barbiturates Screen Neg (NEGATIVE) Urine Phencyclidine Screen Neg (NEGATIVE) Urine Amphetamines Screen Neg (NEGATIVE) Urine Benzodiazepines Screen Pos (NEGATIVE) Urine Cocaine Screen Neg (NEGATIVE) Urine Cannabinoids Screen Neg (NEGATIVE) Hemoglobin A1c 7.7 % A1C (<5.7) Triglycerides Level 156 mg/dL (< 150) Cholesterol Level 106 mg/dL (< 200) LDL Cholesterol 58 mg/dL (< 100) HDL Cholesterol 23 mg/dL (40-59) Blood Gas Tidal Volume 444.0 Test 01/01/24 21:55 01/01/24 17:09 01/01/24 15:38 D-Dimer, Quantitative 1.19 mg/L FEU (0.0-0.49) B-Type Natriuretic Peptide 10.82 pg/mL (0-100) Plasma/Serum Blood Alcohol 3.9 mg/dL (<10) Influenza Type A Antigen Negative (Negative) Influenza Type B Antigen Negative (Negative) SARS-CoV-2 Antigen (Rapid) Negative (NEGATIVE) Troponin I High Sensitivity < 3 ng/L (</=54) Other Laboratory Tests 01/12/24 06:12 Brief Hx & Hospital Course: Patient is a 49-year-old male with a past medical history of type 2 diabetes mellitus, lung fibrosis following COVID pneumonia in 2020 currently on home oxygen 3 liters/minute, fatty liver, obstructive sleep apnea on BiPAP, chronic back pain on methadone daily was brought to the ED with a worsening shortness of breath and altered mental status for 1 day prior to admission. Patient's partner reported that for 4-5 days prior to admission patient has started to have cough and night prior to admission it worsen when he had cough with expectoration with bright red blood, worsening shortness of breath. In the morning patient went to the methadone clinic to get his daily to and oncoming whom he was altered and sleepy and her difficulty breathing following which he was brought to the ED for further evaluation. On arrival to the ED patient's SpO2 was 79% following which he was put on a non-rebreather mask and eventually as he was desaturating he was put on facial BiPAP mask. Patient's blood pressure was stable on admission and remained stable throughout. Patient's initial ABGs showed respiratory acidosis with pCO2 52.9. CBC showed elevated WBC count with left shift. BMP showed normal electrolytes and GFR and creatinine within normal limits. Elevated AST ALT and ALP, elevated triglycerides. Showed normal LVEF at 55% with grade 1 diastolic dysfunction, no valvular abnormalities seen. Chest x-ray showed diffuse opacities more on the left than the right and pulmonary vascular congestion CT angiography showed no evidence of pulmonary embolism, marked predominantly ground-glass opacities in the left lung, supraclavicular, mediastinal and left hilar adenopathy. Past medical history: As per HPI Past surgical history: None Social history: Lives with girlfriend and denies smoking, alcohol, drug use. Home medications: Ozempic, fenofibrate, methadone 93mg daily, carisoprodol Patient was on BiPAP. Patient's ABG normalized, discontinue BiPAP for now and continue BiPAP at nighttime. chest x-ray shows bilateral opacities, chest CT shows marked predominantly ground-glass airspace opacities in the left lung diffusely and right perihilar lung area. Supraclavicular, mediastinal, left hilar adenopathy likely reactive, WBC count elevated with left shift, Pt was diagnosed with Pneumonia, Pt under went Bronch and Respiratory cuture shows MSSA, COVID and influenza type a and B negative. PAtien was emperically treating with Cefepime and Vancomycine, ABX descalarate to cefepime. Patient was improved and oxygen requierment decreased to 3L which is his home oxygen requierment. Patient is hemodynamically stable and today patient is discharging home with PO Augmentin BID for 7 Days. Advised patient follow up with PCP in 1 week. Gen - no pallor, no icterus, no cyanosis, no clubbing, no LAD, no edema . Skin - Patients skin is warm and dry. HEENT - normocephalic, atraumatic, dry mucous membranes. Neck - full ROM, no LAD, no JVD Pulmonary - decreased breath sounds bilaterally with bilateral fine inspiratory crackles more on the left side. no wheezing. cardiovascular - normal S1,S2 heard. no murmurs heard. peripheral pulses normal radial 2+, pedal 2+. capillary refill normal <2 secs. GI - soft abdomen without tenderness to palpation . no hepatosplenomegaly. Bowel sounds +. Neurological - Patient is A/O X 3. Bilateral upper extremity strength 5/5, bilateral lower extremity strength 4/5, Condition at Discharge: Fair Final Diagnosis/Problems List # sepsis likely due to pneumonia # respiratory acidosis with metabolic alkalosis # community-acquired pneumonia likely due to ?Gram +/- ? Atypical bacterial infection # history of COVID in 2020 , lung fibrosis worse on the left # Acute hypoxic respiratory failure likely due to pneumonia possible gram+/- bacterial infection # pulmonary embolism ruled out # obstructive sleep apnea with BiPAP at night at home # echocardiogram shows left ventricular ejection fraction 55%, grade 1 diastolic dysfunction with mild to moderately increased right ventricular pressure # transaminitis with the elevated ALP possible drug induced. # H/o episodes of rectal bleed # uncontrolled type 2 diabetes mellitus # chronic back pain # hypertriglyceridemia Discharge Disposition: Home SNF Discharge Will this Physician continue t: No Discharge Instruct/Medications Diet: Cardiac 2g Na,low cholest Activity: No Restrictions, As Tolerated Follow Up/Referral: fu with pcp in 1 wk Medications: Augmentin 875 mg b.i.d. for seven days resume home meds script to pharmacy Discharge Statement: "Patient was advised to return to the ER or call 911 if any headaches, dizziness, shortness of breath, chest pain, abdominal pain, bleeding, fevers, or worsening of medical condition. Patient was counseled about treatment plan, medications, possible side effects, patientverbalized understanding. All questions were answered to the best of my ability. This discharge took greater then 30 minutes in planning, reviewing documentation, counseling the patient, and discussing with other team members." ASSESSMENT ASSESSMENT Assessment pneumonia STEFANI DESAI RESIDENT Jan 12, 2024 15:26
== END 2024-01-12 16:48 | disposition home or self-care (01) | DRG 720 ==
LOC: ER 13:52 → TELE 21:00 → DOU IN ICU 01-07 22:31 → TELE-CENTR 01-10 01:10
PROVIDERS: ADMIT Internal Medicine; ATTEND Internal Medicine
PROC: 5A09357 Assistance with Respiratory Ventilation, Less than 24 Consecutive Hours, Continuous Positive Airway Pressure (ICD-10-PCS; principal; 2024-01-01)
PROC: 5A0935A Assistance with Respiratory Ventilation, Less than 24 Consecutive Hours, High Flow/Velocity Cannula (ICD-10-PCS; 2024-01-01)
PROC: 5A09457 Assistance with Respiratory Ventilation, 24-96 Consecutive Hours, Continuous Positive Airway Pressure (ICD-10-PCS; 2024-01-02)
PROC: 5A09357 Assistance with Respiratory Ventilation, Less than 24 Consecutive Hours, Continuous Positive Airway Pressure (ICD-10-PCS; 2024-01-03)
PROC: 5A0935A Assistance with Respiratory Ventilation, Less than 24 Consecutive Hours, High Flow/Velocity Cannula (ICD-10-PCS; 2024-01-03)
PROC: 5A09357 Assistance with Respiratory Ventilation, Less than 24 Consecutive Hours, Continuous Positive Airway Pressure (ICD-10-PCS; 2024-01-04)
PROC: 5A0935A Assistance with Respiratory Ventilation, Less than 24 Consecutive Hours, High Flow/Velocity Cannula (ICD-10-PCS; 2024-01-04)
PROC: 5A0935A Assistance with Respiratory Ventilation, Less than 24 Consecutive Hours, High Flow/Velocity Cannula (ICD-10-PCS; 2024-01-05)
PROC: 5A0945A Assistance with Respiratory Ventilation, 24-96 Consecutive Hours, High Flow/Velocity Cannula (ICD-10-PCS; 2024-01-06)
PROC: 5A09357 Assistance with Respiratory Ventilation, Less than 24 Consecutive Hours, Continuous Positive Airway Pressure (ICD-10-PCS; 2024-01-08)
PROC: 5A09357 Assistance with Respiratory Ventilation, Less than 24 Consecutive Hours, Continuous Positive Airway Pressure (ICD-10-PCS; 2024-01-09)
PROC: 5A0935A Assistance with Respiratory Ventilation, Less than 24 Consecutive Hours, High Flow/Velocity Cannula (ICD-10-PCS; 2024-01-09)
PROC: 5A09357 Assistance with Respiratory Ventilation, Less than 24 Consecutive Hours, Continuous Positive Airway Pressure (ICD-10-PCS; 2024-01-10)
PROC: 5A09357 Assistance with Respiratory Ventilation, Less than 24 Consecutive Hours, Continuous Positive Airway Pressure (ICD-10-PCS; 2024-01-11)
DX: A41.9 Sepsis, unspecified organism (principal); J96.21 Acute and chronic respiratory failure with hypoxia; J15.69 Pneumonia due to other Gram-negative bacteria; E87.4 Mixed disorder of acid-base balance; J15.9 Unspecified bacterial pneumonia; I11.0 Hypertensive heart disease with heart failure; I50.32 Chronic diastolic (congestive) heart failure; J44.0 Chronic obstructive pulmonary disease with (acute) lower respiratory infection; R04.2 Hemoptysis; K76.0 Fatty (change of) liver, not elsewhere classified; J96.22 Acute and chronic respiratory failure with hypercapnia; G47.33 Obstructive sleep apnea (adult) (pediatric); E66.9 Obesity, unspecified; J44.1 Chronic obstructive pulmonary disease with (acute) exacerbation; J20.9 Acute bronchitis, unspecified; Z20.822 Contact with and (suspected) exposure to COVID-19; F41.9 Anxiety disorder, unspecified; E78.1 Pure hyperglyceridemia; G89.29 Other chronic pain; E11.9 Type 2 diabetes mellitus without complications; Z68.36 Body mass index [BMI] 36.0-36.9, adult; Z99.81 Dependence on supplemental oxygen; Z86.16 Personal history of COVID-19; Z79.4 Long term (current) use of insulin
CPT/HCPCS: 36415; 36600; 71045; 71275; 80048; 80053; 80061; 80202; 80307; 80320; 81001; 82565; 82805; 82962; 82977; 83036; 83605; 83735; 83880; 84484; 85007; 85025; 85027; 85379; 87040; 87070; 87077; 87081; 87186; 87205; 87426; 87804; 93306; 93970; 94640; 94660; 97110; 97116; 97163; 97530; 99291; G0378; J1815; J2470